=== PATIENT | male | born 1945 | race Caucasian/White ===

== ENCOUNTER 2020-09-21 12:01 | Outpatient (CLI) | payer OTHER, SELFPAY ==
--- NOTE | ~2020-09-21 | PE_ITS ---
EXAMINATION: PET skull to mid thigh DATE: 09/21/2020 14:37 INDICATION: Lung mass. TECHNIQUE: Blood glucose level was 166 mg/dL. 10.111 mCi of 18-fluorodeoxyglucose (18-FDG) was admini stered i.v. Low dose computed tomography (CT) images were acquired from the base of the brain to the proximal thighs for attenuation correction and anatomic localization. Automated exposure control was employed. Dose-length product (DLP) was 1070 mGy-cm. Positron emission tomography (PET) images were a cquired in the same distribution. COMPARISON: CT chest, abdomen, and pelvis 06/23/2015 FINDINGS: Head/neck: There is complete opacification of right maxillary sinus without increased activity. There are no pathologically enlarged lymph nodes. Chest: There is pleural thickening in right hemithorax without increased activity. There are airspace opacities in right lower lobe with swirling of the lung parenchyma without increased activity, consi stent with rounded atelectasis. There is mild atelectasis in the lungs bilaterally. There is a 5 mm n odule in right upper lobe without increased activity, likely benign. A calcified left lung nodule and calcified left hilar and mediastinal lymph nodes are consistent with old granulomatous disease. No p leural effusion. The heart size is normal. There are coronary artery calcifications. No pericardial e ffusion. Abdomen/pelvis/proximal thighs: Calcifications in the liver are consistent and spleen are consistent with old granulomatous disease. There are peripheral calcifications in the spleen, likely old infarct or old hemorrhage. There is mild splenomegaly measuring 13.5 cm, decreased from 14.8 cm on 06/23/15. T here is no increased activity in the spleen. There are gallstones in the gallbladder, which is normal in size. There is a small sliding hiatal hernia. The pancreas, adrenal glands, and kidneys are abundio l. There are no dilated loops of bowel. The prostate is mildly enlarged. There are no pathologically enlarged lymph nodes. There is no free intraperitoneal fluid. There is no osseous malignancy. IMPRESSION: 1. Rounded atelectasis in right lung lower lobe. No evidence of malignancy. Reviewed, dictated and finalized at location A.
[2020-09-21 12:30] LABS: Glucose Point of Care 166 mg/dl (65-105)
== END 2020-09-21 12:02 | disposition home or self-care (01) ==
LOC: ANHIMG 12:04
PROVIDERS: PCP Internal Medicine Infectious Disease; Visit Provider Nurse Practitioner
DX: R91.8 Other nonspecific abnormal finding of lung field (principal)
CPT/HCPCS: 78815; 82948; A9552

== ENCOUNTER 2022-05-16 07:34 | Outpatient (CLI) | payer OTHER, SELFPAY ==
--- NOTE | ~2022-05-16 | CT_ITS ---
EXAMINATION: CT soft tissue neck chest wo DATE: 05/16/2022 08:22 INDICATION: Chronic lymphoid leukemia. TECHNIQUE: Computed tomography (CT) of the neck and chest was performed without intravenous contrast. Automated exposure control and iterative reconstruction technique were employed. The dose-length pro duct was 1204.92 mGy-cm. COMPARISON: Neck CT 11/27/2015, chest CT 06/23/2015, PET/CT 09/21/2020 FINDINGS: CT NECK: There are likely changes of ocular lens replacement surgeries. There are no pathologically e nlarged lymph nodes. There is mucosal thickening in the paranasal sinuses. There is a small right mas toid effusion. There is severe cervical spondylosis. CT CHEST: There is right posterior pleural thickening. There is adjacent rounded atelectasis in right lower lobe. A calcified left lung nodule and calcified left hilar lymph nodes are consistent with ol d granulomatous disease. There is mild emphysema. There are reticular opacities in the right upper lo be, right middle lobe, and left lower lobe associated with architectural distortion. No pleural effus ion. The heart size is normal. No pericardial effusion. There are coronary artery calcifications. The re is a small sliding hiatal hernia. There are gallstones in the gallbladder, which is normal in size . There are peripheral calcifications in the spleen, likely from old injury. There is mild thoracic s pondylosis. IMPRESSION: 1. No lymphadenopathy. 2. Mild emphysema and mild chronic lung disease. Reviewed, dictated and finalized at location A. 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
== END 2022-05-16 07:35 | disposition home or self-care (01) ==
PROVIDERS: PCP Internal Medicine Infectious Disease; Visit Provider Internal Medicine Medical Oncology
DX: C91.10 Chronic lymphocytic leukemia of B-cell type not having achieved remission (principal); J43.9 Emphysema, unspecified; J98.4 Other disorders of lung
CPT/HCPCS: 70490; 71250

== ENCOUNTER 2025-02-09 14:35 | Outpatient (CLI) | payer OTHER, SELFPAY ==
--- OUTSIDE RECORDS SUMMARY | 2009-11-25 03:30 | XMS_ITS | Continuity of Care Document ---
Author Organization [facility] Address [address] [facility] [address] [place] [address] Phone Care Team Providers Care Loan Underwriter Name Role Phone Lexi Willson Unavailable Unavailable Procedures Procedure Date Eye Exam & Treatment Refraction Eye Exam & Treatment Office/outpatient Visit, Est Advance Directives Directive Yes / No Effective Date File Name No Information Encounters Encounter Description Practice Location Reason(s) For Visit Diagnoses Date Provider Providers Copied on Encounter [facility], [address] [place] [address] [address], [place], [place], [id number], [place] tel:[phone] [facility] [place] No Information 0 Anamika Fermin [address] , [address], [place], [address], [place]. tel:[phone] [facility], [address] [place] [address] [address], [place], [place], [id number], [place] tel:[phone] [facility] [place] No Information 200 9 Anamika Fermin [address] , [address], [place], [address], [place]. tel:[phone] Office/outpat ient Visit, Est [facility], [address] [place] [address] [address], [place], [place], [id number], [place] tel:[phone] [facility] [place] No Information 2200 7 Anamika Elliott. [address] , [address], [place], [address], [place]. tel:[phone] Family History Family Member Type Diagnosis Age At Onset No Information Payers Payer name Insurance type Covered libertarian ID Authorkaushal raymond(s) Medicaid [facility] [id number] Social History Type Description Quantity Date Captured Comments Sex Male Smoking Status No Information Chief Complaint And Reason For Visit No Information Reason For Referral Reason For Referral No Information History Of Present Illness Encounter Date Complaint History Of Prese nt Illness No Information Functional Status Date Functional Assessmen t No Information Instructions Date Instruction Additional Infor mation No Information Assessments Type Assessment Date No Information Patient Care Teams Name Effective Dates (start - stop) Status Members No Information
--- OUTSIDE RECORDS SUMMARY | 2023-11-09 08:30 | XMS_ITS ---
Author Organization [facility] Address [address] [place] [address] Care Team Providers Care High School Teacher Name Role Phone Jacobson Kamran Unavailable [phone] Medications Medication SIG (Take, Route, Frequency, Duration) Notes Start Date End Date Status Ciprofloxacin HCl 500 MG TAKE 1 TABLET B Y MOUTH EVERY 12 HOURS; Duration: 10 Active Calcitriol 0.25 MCG TAKE 1 CAPSULE BY MO UT EVERY DAY; Duration: 90 Active Social History Sex Assigned At : Social History Observation Description Sex Assigned At Male Encounters Encounter Location Date Provider Diagnosis [place] [facility] [address] [facility] [address] [place] [address] 11/09/2023 Kamran Jacobson Chronic kidney disease, stage 3a N18.31 ; Essential (primary) hypertension I10 ; Type 2 diabetes mellitus with hyperglycemia E11.65 ; Chronic obstructive pulmonary disease with (acute) exacerbation J44.1 and Cyst of kidney, acquired N28.1 Assessments Encounter Date Diagnosis (ICD Code) Assessment Notes Treatment Notes Treatment Clinical Notes Section Notes 11/09/2023 Chronic kidney disease, stage 3a (ICD-10 - N18.31) 11/09/2023 Essential (primary) hypertension (ICD-10 - I10) 11/09/2023 Type 2 diabetes mellitus with hyperglycemia (ICD-10 - E11.65) 11/09/2023 Chronic obstructive pulmonary disease with (acute) exacerbation (ICD-10 - J44.1) 11/09/2023 Cyst of kidney, acquired (ICD-10 - N28.1) Plan Of Treatment Next Appt Details Provider Name:Kamran Jacobson , 02/18/2025 02:00:00 PM, [address]43 [facility], [facility], [place], [address], Progress Notes * FADI DUNCANB: 6 (79 yo M)Acc No.[id number]:11/09/2023 Progress Notes Patient: CAROL MIRANDA Provider: Malini VELÁSQUEZ MD, Esther.Luma.P, F.A.S.N. :1945 A ge:78 Y S ex:Male Date:11/09/2023 Address:[address] [place] [address] Subjective: * Chief Complaints: * * Medical History: * Medications: T aking Ciprofloxacin HCl 500 MG Tablet TAKE 1 TABLET BY MOUTH EVERY 12 HOURS , Taking Calcitriol 0.25 MCG Capsule TAKE 1 CAPSULE BY MOUTH EVERY DAY Objective: * Vitals: Assessment: * Assessment: 1. C hronic kidney disease, stage 3a - N18.31 (Primary) 2 . E ssential (primary) hypertension - I10 3 . T ype 2 diabetes mellitus with hyperglycemia - E11.65 4 . C hronic obstructive pulmonary disease with (acute) exacerbation - J44.1 5. C yst of kidney, acquired - N28.1 Plan: * Treatment: * Billing Information: * Visit Code: 41954 Office Visit, Est Pt., Level 4. * Procedure Codes: * Electronic signature of Brian Jacobson MD on 02/09/2025 at 04:19 PM CDT Sign off status: Pending * Provider: Malini VELÁSQUEZ MD, Esther.Luma.P, F.A.S.N. Date: 0 11/09/2023 Generated for Printing/Faxing/eTransmitting on: 1 04:19 PM CDT
--- OUTSIDE RECORDS SUMMARY | 2024-01-25 08:45 | XMS_ITS ---
Author Organization [facility] Address [address] [place] [address] Care Team Providers Care Hazardous Substances Engineer Name Role Phone Kavon Kamran Unavailable [phone] Social History Sex Assigned At : Social History Observation Description Sex Assigned At Male Encounters Encounter Location Date Provider Diagnosis [place] [facility] 2043 [facility] 15 [place] [address] 01/25/2024 Kamran Jacobson Chronic kidney disease, stage [...] Next Appt Details Provider Name:Kamran Kavon , 02/18/2025 02:00:00 PM, 2043 [facility], [facility] [address], [place], [address], Progress Notes * CAROL DUNCANDOB: 6 (79 yo M)Acc No.[id number]:01/25/2024 Progress Notes Patient: CAROL MIRANDA Provider: Malini VELÁSQUEZ MD, F.A.C.P, F.A.S.N. :1945 A ge:78 Y S ex:Male Date:01/25/2024 Address:[place] [address] Subjective: * Chief Complaints: * * Medical [...] Treatment: * Billing Information: * Visit Code: 76494 Office Visit, Est Pt., Level 5. * Procedure Codes: * Electronic signature of Brian Jacobson MD on 02/09/2025 at 04:18 PM CDT Sign off status: Pending * Provider: Malini VELÁSQUEZ MD, F.A.C.P, F.A.S.N. Date: Generated for Printing/Faxing/eTransmitting on: 04:18 PM CDT
--- OUTSIDE RECORDS SUMMARY | 2024-03-26 10:15 | XMS_ITS ---
Author Organization [facility] Address [address] [place] [address] Care Team Providers Care Dental Service Chief Name Role Phone Jacobson Kamran Unavailable [phone] Social History Sex Assigned At : Social History Observation Description Sex Assigned At Male Encounters Encounter Location Date Provider Diagnosis [place] [facility] 2043 [place] [address] 03/26/2024 Kamran Jacobson Plan Of Treatment Next Appt Details Provider Name:Kamran Jacobson , 02/18/2025 02:00:00 PM, [address], [facility], Progress Notes * CAROL DUNCANDOB: 6 (79 yo M)Acc No.[id number]:03/26/2024 Progress Notes Patient: CAROL MIRANDA Provider: Malini VELÁSQUEZ MD, Esther.Jostin.C.P, F.A.S.N. :1945 A ge:78 Y S ex:Male Date:03/26/2024 Address:[address] [place] [address] Subjective: * Chief Complaints: * * Medical History: Objective: * Vitals: Assessment: Plan: * Treatment: * Billing Information: * Visit Code: * Procedure Codes: * Electronic signature of Brian Jacobson MD on 02/09/2025 at 04:18 PM CDT Sign off status: Pending * Provider: Malini VELÁSQUEZ MD, F.Jostin.C.P, F.A.S.N. Date: 05/27/2023 Generated for Printing/Faxing/eTransmitting on: 04:18 PM CDT
--- OUTSIDE RECORDS SUMMARY | 2024-04-25 07:45 | XMS_ITS ---
Author Organization [facility] Address [address] [place] [address] Care Team Providers Care Subway Conductor Name Role Phone Jacobson Kamran Unavailable [phone] Social History Sex Assigned At : Social History Observation Description Sex Assigned At Male Encounters Encounter Location Date Provider Diagnosis [facility] [place] [facility] [address] [place] [address] 04/25/2024 Kamran Jacobson Plan Of Treatment Next Appt Details Provider Name:Kamran Jacobson , 02/18/2025 02:00:00 PM, [address], [facility], Progress Notes * CAROL DUNCANDOB: 6 (79 yo M)Acc No.[id number]:04/25/2024 Patient: CAROL MIRANDA Provider: Malini VELÁSQUEZ MD, F.A.C.P, F.A.S.N. :1945 A ge:78 Y S ex:Male Date:04/25/2024 Address:[address] [place] [address] Subjective: * Chief Complaints: Objective: Assessment: Plan: * Billing Information: * Visit Code: * Procedure Codes: * Electronic signature of Brian Jacobson MD on 02/09/2025 at 04:18 PM CDT Sign off status: Pending * Provider: Malini VELÁSQUEZ MD, F.A.C.P, F.A.S.N. Date: 0 04/25/2024 Generated for Printing/Faxing/eTransmitting on: 04:18 PM CDT
--- OUTSIDE RECORDS SUMMARY | 2024-05-14 10:30 | XMS_ITS ---
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 15 [place] [address] 05/14/2024 Kamran Jacobson Chronic kidney disease, stage [...] Name:Kamran Jacobson , 02/18/2025 02:00:00 PM, [address] [place] [address], [facility] 15, [place], [address], Progress Notes * CAROL DUNCANDOB: 6 (79 yo M)Acc No.[id number]:05/14/2024 Progress Notes Patient: CAROL MIRANDA Provider: Malini VELÁSQUEZ MD, F.Jostin.C.P, F.A.S.N. :1945 A ge:78 Y S ex:Male Date:05/14/2024 Address:[address] [place] [address] Subjective: * Chief Complaints: * * Medical History: * Medications: T aking Ciprofloxacin HCl 500 MG Tablet TAKE 1 TABLET BY MOUTH EVERY 12 HOURS , Taking Vitamin D (Ergocalciferol) 1.25 MG (71645 UT) Capsule TAKE 1 CAPSULE BY MOUTH [...] Treatment: * Billing Information: * Visit Code: 63297 Office Visit, Est Pt., Level 4. * Procedure Codes: * Electronic signature of Brian Jacobson MD on 02/09/2025 at 04:18 PM CDT Sign off status: Pending * Provider: Malini VELÁSQUEZ MD, Esther.Jostin.C.P, F.A.S.N. Date: 05/14/2024 Generated for Printing/Faxing/eTransmitting on: 1 04:18 PM CDT
--- OUTSIDE RECORDS SUMMARY | 2024-07-09 09:30 | XMS_ITS ---
Author Organization [facility] Office Address [address] [place] [address] Care Team Providers Care Adjunct Faculty For Medical Terminology Name Role Phone Kavon Kamran Unavailable [phone] Social History Sex Assigned At : Social History Observation Description Sex Assigned At Male Problems Problem Type SNOMED Code ICD Code Onset Dates Problem Status W/U Status Risk Notes Problem Hypo-osmolality and or hyponatremia (863022412) Hypo-osmolality and hyponatremia (E87.1) Active confirmed Problem Acute bronchitis (51166750) Acute bronchitis, unspecified (J20.9) Active confirmed Encounters Encounter Location Date Provider Diagnosis [place] [facility] 2043 [facility] 15 [place] [address] 07/09/2024 Kamran Jacobson Chronic kidney disease, stage [...] Provider Name:Kamran Jacobson , 02/18/2025 02:00:00 PM, [address], [address], [place], [address], Progress Notes * CAROL DUNCANDOB: 6 (79 yo M)Acc No.[id number]:07/09/2024 Progress Notes Patient: CAROL MIRANDA Provider: Malini VELÁSQUEZ MD, F.A.C.P, F.A.S.N. :1945 A ge:78 Y S ex:Male Date:07/09/2024 Address:[address] [place] [address] Subjective: * Chief Complaints: * * Medical [...] Treatment: * Billing Information: * Visit Code: 23752 Office Visit, Est Pt., Level 4. * Procedure Codes: * Electronic signature of Brian Jacobson MD on 02/09/2025 at 04:19 PM CDT Sign off status: Pending * Provider: Malini VELÁSQUEZ MD, F.A.C.P, F.A.S.N. Date: 0 07/09/2024 Generated for Printing/Faxing/eTransmitting on: 1 04:19 PM CDT
--- OUTSIDE RECORDS SUMMARY | 2024-10-08 09:30 | XMS_ITS ---
Author Organization [facility] Office Address [address] [place] [address] Care Team Providers Care Erp Specialist Name Role Phone Kavon Kamran Unavailable [phone] Social History Sex Assigned At : Social History Observation Description Sex Assigned At Male Problems Problem Type SNOMED Code ICD Code Onset Dates Problem Status W/U Status Risk Notes Problem Chronic kidney disease stage 3B (disorder) (593493606) Chronic kidney disease, stage 3b (N18.32) Active confirmed Encounters Encounter Location Date Provider Diagnosis [place] [facility] 2043 [facility] 15 [place] [address] 10/08/2024 Kamran Jacobson Chronic kidney disease, stage [...] Name:Kamran Jacobson , 02/18/2025 02:00:00 PM, [address], [facility] 15, [place], [address], Progress Notes * CAROL DUNCANDOB: 6 (79 yo M)Acc No.[id number]:10/08/2024 Progress Notes Patient: CAROL MIRANDA Provider: Malini VELÁSQUEZ MD, F.A.C.P, F.A.S.N. :1945 A ge:78 Y S ex:Male Date:10/08/2024 Address:[facility] [place] Subjective: * Chief Complaints: * * Medical [...] Treatment: * Billing Information: * Visit Code: 58317 Office Visit, Est Pt., Level 4. * Procedure Codes: * Electronic signature of Brian Jacobson MD on 02/09/2025 at 04:19 PM CDT Sign off status: Pending * Provider: Malini VELÁSQUEZ MD, F.A.C.P, F.A.S.N. Date: 0 10/08/2024 Generated for Printing/Faxing/eTransmitting on: 1 04:19 PM CDT
--- OUTSIDE RECORDS SUMMARY | 2024-12-03 10:00 | XMS_ITS ---
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 :1945 A ge:79 Y S ex:Male Date:12/03/2024 Address:[address] [place] [address] Subjective: * Chief Complaints: Objective: Assessment: * [...] Plan: * Billing Information: * Visit Code: 49051 Office Visit, Est Pt., Level 4. * Procedure Codes: * Electronic signature of Brian Jacobson MD on 02/09/2025 at 04:19 PM CDT Sign off status: Pending * Provider: Malini VELÁSQUEZ MD, F.A.C.P, F.A.S.N. Date: 0 12/03/2024 Generated for Printing/Faxing/eTransmitting on: 1 04:19 PM CDT
--- OUTSIDE RECORDS SUMMARY | 2025-01-21 14:15 | XMS_ITS ---
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 Truck Driver Name Role Phone Kamran Jacobson Unavailable [phone] Social History Sex Assigned At : Social History Observation Description Sex Assigned At Male Encounters Encounter Location Date Provider Diagnosis [facility] [address] [place] [address] 01/21/2025 Malini Jacobson Plan Of Treatment Next Appt Details Provider Name:Kamran Jacobson , 02/18/2025 02:00:00 PM, [address]43 [facility] [address], [address], Progress Notes * CAROL DUNCANDOB: 6 (79 yo M)Acc No.[id number]:01/21/2025 Progress Notes Patient: CAROL IMRANDA Provider: Malini VELÁSQUEZ MD, F.A.C.P, F.A.S.N. :1945 A ge:79 Y S ex:Male Date:01/21/2025 Address:[address] [place] [address] Subjective: * Chief Complaints: Objective: Assessment: Plan: * Billing Information: * Visit Code: * Procedure Codes: * Electronic signature of Brian Jacobson MD on 02/09/2025 at 04:19 PM CDT Sign off status: Pending * Provider: Malini VELÁSQUEZ MD, F.A.C.P, F.A.S.N. Date: Generated for Printing/Faxing/eTransmitting on: 04:19 PM CDT
--- OUTSIDE RECORDS SUMMARY | 2025-01-28 13:45 | XMS_ITS ---
Author Organization [facility] Address [address] [place] [address] Care Team Providers Care Manometer Technician Name Role Phone Jacobson Kamran Unavailable [phone] Social History Sex Assigned At : Social History Observation Description Sex Assigned At Male Encounters Encounter Location Date Provider Diagnosis [facility] [place] [facility] [address] [place] [address] 01/28/2025 Kamran Jacobson Plan Of Treatment Next Appt Details Provider Name:Kamran Jacobson , 02/18/2025 02:00:00 PM, [address], [facility], Progress Notes * CAROL DUNCANDOB: 6 (79 yo M)Acc No.[id number]:01/28/2025 Progress Notes Patient: CAROL MIRANDA Provider: Malini VELÁSQUEZ MD, F.A.C.P, F.A.S.N. :1945 A ge:79 Y S ex:Male Date:01/28/2025 Address:[address] [place] [address] Subjective: * Chief Complaints: Objective: Assessment: Plan: * Billing Information: * Visit Code: * Procedure Codes: * Electronic signature of Brian Jacobson MD on 02/09/2025 at 04:18 PM CDT Sign off status: Pending * Provider: Malini VELÁSQUEZ MD, F.A.C.P, F.A.S.N. Date: Generated for Printing/Faxing/eTransmitting on: 04:18 PM CDT
--- NOTE | ~2025-02-09 | CT_ITS ---
EXAMINATION: CT soft tissue neck w con DATE: 02/09/2025 15:06 INDICATION: Other diseases of vocal cords. TECHNIQUE: Computed tomography (CT) of the neck was performed with 75 mL Omnipaque-350 intravenous contrast. Automated exposure control and iterative reconstruction technique were employed. The dose-length product was 649.40 mGy-cm. COMPARISON: Neck CT 05/16/2022 FINDINGS: There is mild chronic lung disease in right upper lobe. There are likely changes of ocular lens replacement surgeries. There are no pathologically enlarged lymph nodes. There is plaque in the proximal internal carotid arteries with less than 50% stenosis relative to normal distal artery lumen diameters. The pharynx and larynx are unremarkable. There is mucosal thickening in the paranasal sinuses. There is a right mastoid effusion. There is severe cervical spondylosis. IMPRESSION: 1. No evidence of malignancy. Reviewed, dictated and finalized at location E.
[2025-02-09 14:58] LABS: Estimated Glomerular Filt Rate 49
--- OUTSIDE RECORDS SUMMARY | 2025-02-09 16:18 | XMS_ITS | Patient Health Record ---
Author Organization [facility] Address [address] [place] [address] Care Team Providers Care Pastry Assistant Name Role Phone Kamran Jacobson Unavailable [phone] Reason For Referral No Information Medications Medication SIG (Take, Route, Frequency, Duration) Notes Start Date End Date Status Vitamin D (Ergocalciferol) 1.25 MG (34371 UT) TAKE 1 CAPSULE BY MOUTH 1 TIME A WEEK; Duration: 91 Active Calcitriol 0.25 MCG TAKE 1 CAPSULE BY MO UTH EVERY DAY; Duration: 90 Active Ciprofloxacin HCl 500 MG TAKE 1 TABLET B Y MOUTH EVERY 12 HOURS; Duration: 10 Active Proscar 5 MG 1 tablet Orally Once a day; Duration: 30 days 12/17/2024 04/15/2025 Active Losartan Potassium 100 MG 1 tablet Orall y Once a day; Duration: 90 days 11/14/2024 Active Social History Sex Assigned At : Social History Observation Description Sex Assigned At Male Problems Problem Type SNOMED Code ICD Code Onset Dates Problem Status W/U Status Risk Notes Problem Hyperglycemia due to type 2 diabetes mellitus (622117639971630) Type 2 diabetes mellitus with hyperglycemia (E11.65) Active confirmed Problem Syndrome of inappropriate secretion of antidiuretic hormone (21855838) 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 confirmed Problem Hypervitaminosis D (30196626) 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) Active confirmed Problem Hypo-osmolality and or hyponatremia (419110019) Hypo-osmolality and hyponatremia (E87.1) Active confirmed Problem Essential hypertension (60324873) Essential (primary) hypertension (I10) Active confirmed Problem Acute bronchitis (92154889) Acute bronchitis, unspecified (J20.9) Active confirmed Problem Acute exacerbation of chronic obstructive airways disease (265815302) Chronic obstructive pulmonary disease with (acute) exacerbation (J44.1) Active confirmed Problem 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, 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) Active confirmed Problem Chronic kidney disease stage 3B (disorder) (302281452) Chronic kidney disease, stage 3b (N18.32) Active confirmed Encounters Encounter Location Date Provider Diagnosis [facility] [address] [address] 05/14/2024 Kamran Jacobson Chronic kidney disea se, stage 3a N18.31 ; Type 2 diabetes mellitus with hyperglycemia E11.65 ; Essential (primary) hypertension I10 ; Chronic obstructive pulmonary disease with (acute) exacerbation J44.1 ; Cyst of kidney, acquired N28.1 and 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 [facility] [address] [address] 07/09/2024 Kamran Jacobson Chronic kidney disea se, stage 3a N18.31 ; Type 2 diabetes mellitus with hyperglycemia E11.65 ; Essential (primary) hypertension I10 ; Chronic obstructive pulmonary disease with (acute) exacerbation J44.1 ; Cyst of kidney, acquired N28.1 ; 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 ; Hypo-osmolality and hyponatremia E87.1 and Acute bronchitis, unspecified J20.9 [facility] [address] [address] 10/08/2024 Kamran Jacobson Chronic kidney disea se, stage 3b N18.32 ; Type 2 diabetes mellitus with hyperglycemia E11.65 ; Essential (primary) hypertension I10 ; Chronic obstructive pulmonary disease with (acute) exacerbation J44.1 ; Cyst of kidney, acquired N28.1 ; 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 ; Hypo-osmolality and hyponatremia E87.1 and Acute bronchitis, unspecified J20.9 [facility] [address] [address] 12/03/2024 Kamran Jacobson Chronic kidney disea se, stage 3b N18.32 ; Type 2 diabetes mellitus with hyperglycemia E11.65 ; Essential (primary) hypertension I10 ; Chronic obstructive pulmonary disease with (acute) exacerbation J44.1 ; Cyst of kidney, acquired N28.1 ; 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 ; Hypo-osmolality and hyponatremia E87.1 ; Acute bronchitis, unspecified J20.9 and 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 [facility] 2043 [facility] 15 [place] [address] 11/14/2024 Kamran Jacobson Call Office [address] [address] 12/17/2024 Kamran Jacobson Assessments Encounter Date Diagnosis (ICD Code) Assessment Notes Treatment Notes Treatment Clinical Notes Section Notes 05/14/2024 Chronic kidney disease, stage 3a (ICD-10 - N18.31) 07/09/2024 Chronic kidney disease, stage 3a (ICD-10 - N18.31) 10/08/2024 Chronic kidney disease, stage 3b (ICD-10 - N18.32) 12/03/2024 Type 2 diabetes mellitus with hyperglycemia (ICD-10 - E11.65) 12/03/2024 Chronic kidney disease, stage 3b (ICD-10 - N18.32) 12/03/2024 Essential (primary) hypertension (ICD-10 - I10) 10/08/2024 Type 2 diabetes mellitus with hyperglycemia (ICD-10 - E11.65) 07/09/2024 Type 2 diabetes mellitus with hyperglycemia (ICD-10 - E11.65) 05/14/2024 Type 2 diabetes mellitus with hyperglycemia (ICD-10 - E11.65) 05/14/2024 Essential (primary) hypertension (ICD-10 - I10) 07/09/2024 Essential (primary) hypertension (ICD-10 - I10) 12/03/2024 Chronic obstructive pulmonary disease with (acute) exacerbation (ICD-10 - J44.1) 10/08/2024 Essential (primary) hypertension (ICD-10 - I10) 10/08/2024 Chronic obstructive pulmonary disease with (acute) exacerbation (ICD-10 - J44.1) 12/03/2024 Cyst of kidney, acquired (ICD-10 - N28.1) 07/09/2024 Chronic obstructive pulmonary disease with (acute) exacerbation (ICD-10 - J44.1) 05/14/2024 Chronic obstructive pulmonary disease with (acute) exacerbation (ICD-10 - J44.1) 05/14/2024 Cyst of kidney, acquired (ICD-10 - N28.1) 07/09/2024 Cyst of kidney, acquired (ICD-10 - N28.1) 10/08/2024 Cyst of kidney, acquired (ICD-10 - N28.1) 12/03/2024 Syndrome of inappropriate secretion of antidiuretic hormone (ICD-10 - E22.2) 12/03/2024 Hypo-osmolality and hyponatremia (ICD-10 - E87.1) 10/08/2024 Syndrome of inappropriate secretion of antidiuretic hormone (ICD-10 - E22.2) 05/14/2024 Syndrome of inappropriate secretion of antidiuretic hormone (ICD-10 - E22.2) 07/09/2024 Syndrome of inappropriate secretion of antidiuretic hormone (ICD-10 - E22.2) 07/09/2024 Hypo-osmolality and hyponatremia (ICD-10 - E87.1) 10/08/2024 Hypo-osmolality and hyponatremia (ICD-10 - E87.1) 12/03/2024 Acute bronchitis, unspecified (ICD-10 - J20.9) 12/03/2024 Hypervitaminosis D (ICD-10 - E67.3) 10/08/2024 Acute bronchitis, unspecified (ICD-10 - J20.9) 07/09/2024 Acute bronchitis, unspecified (ICD-10 - J20.9) Plan Of Treatment Next Appt Details Provider Name:Kamran Jacobson , 02/18/2025 02:00:00 PM, [address] Kait[address] Sorenson, [facility], [place], [address],
--- OUTSIDE RECORDS SUMMARY | 2025-02-09 16:18 | XMS_ITS | Clinical Summary ---
Author Organization [facility] Address [address] [place] [address] Care Team Providers Care Cvor Nurse Name Role Phone Unavailable Primary Care Provider Unavailabl e Social History Tobacco Use Types Packs/Day Years Used Date Smoking Tobacco: Never Assessed Sex and Gender Information Value Date Recorded Sex Assigned at Not on file Legal Sex Male 5:01 PM CDT Gender Identity Not on file Sexual Orientation Not on file Last Filed Vital Signs Vital Sign Reading Time Taken Comments Blood Pressure 136/74 03/01/2017 1:43 PM FREIGHT BROKER AGENT Pulse 74 03/01/2017 1:43 PM FREIGHT BROKER AGENT Temperature - - Respiratory Rate - - Oxygen Saturation - - Inhaled Oxygen Concentration - - Weight 111.6 kg (246 lb 1 oz) 03/01/2017 1:43 PM FREIGHT BROKER AGENT Height 181 cm (5' 11.25) 03/01/2017 1:43 PM FREIGHT BROKER AGENT Body Mass Index 34.08 03/01/2017 1:43 PM FREIGHT BROKER AGENT Plan of Treatment Health Maintenance Due Date Last Done Comments Hepatitis C 10[birth year]26/1963 DTaP, Tdap and Td Vaccines ( 1 - Tdap) 1964 Pneumococcal Vaccine: 50+ Ye ars (1 of 1 - PCV) 10/26/1995 Zoster Vaccines (1 of 2) 10/26/1995 RSV Immunization or 60+ Years (1 - 1-dose 75+ series) 2020 COVID-19 Vaccine ( - 2024-2 6 season) 2024 Influenza Adult (#1) 2025 Hepatitis A Vaccines Aged Out No long er eligible based on patient's age to complete this topic Meningococcal B Vaccine Aged Out No l onger eligible based on patient's age to complete this topic Meningococcal Vaccine Aged Out No slim garett eligible based on patient's age to complete this topic RSV Immunizations Under 20 Months Aged Out No longer eligible based on patient's age to complete this topic
--- OUTSIDE RECORDS SUMMARY | 2025-02-09 16:19 | XMS_ITS | Data Portability ---
Author Organization [facility] Linksify [facility], Main Office Address [address] [place] [address] Care Team Providers Care Wagon Person Name Role Phone YASMANI BRANCH Primary Care Provider [phone] YASMANI BRANCH Referring Provider Assessment Encounter Date Assessment Date Assessment LastModified by Organization Details LastModified Time 07/16/2024 07/16/2024 This note is dictated and transcribed by [employer]. Shank [employer] variances may occur. Despite proofreading, typographical errors may occur. Occasional wrong-word or 'augcc-v-wijy' substitutions may have occurred due to the inherent limitations of voice recording. Read the chart carefully and recognize, using context, where substitutions have occurred. Not available 07/16/2024 12:26:50 07/23/2024 07/23/2024 This note is dictated and transcribed by [employer]. [employer] variances may occur. Despite proofreading, typographical errors may occur. Occasional wrong-word or 'uikns-d-whkz' substitutions may have occurred due to the inherent limitations of voice recording. Read the chart carefully and recognize, using context, where substitutions have occurred. Not available 08/04/2024 09:19:56 07/28/2024 07/28/2024 This note is dictated and transcribed by [employer]. [employer] variances may occur. Despite proofreading, typographical errors may occur. Occasional wrong-word or 'pswxt-r-ainp' substitutions may have occurred due to the inherent limitations of voice recording. Read the chart carefully and recognize, using context, where substitutions have occurred. Not available 07/28/2024 11:17:32 08/20/2024 08/20/2024 This note is dictated and transcribed by [employer]. Shank [employer] variances may occur. Despite proofreading, typographical errors may occur. Occasional wrong-word or 'krfbm-m-svuw' substitutions may have occurred due to the inherent limitations of voice recording. Read the chart carefully and recognize, using context, where substitutions have occurred. Not available 08/20/2024 12:06:35 12/18/2024 12/18/2024 This note is dictated and transcribed by [employer]. Shank [employer] variances may occur. Despite proofreading, typographical errors may occur. Occasional wrong-word or 'izlao-b-ckee' substitutions may have occurred due to the inherent limitations of voice recording. Read the chart carefully and recognize, using context, where substitutions have occurred. Not available 12/18/2024 17:23:36 Plan of Treatment Reminders Order Date Submit Date Provider Last Modified By Organization Details Last Modified Time Details Appointments Establish ed Patient 15 2024 04:00P M Jose Andrews DPM Not available Not available Not available Lab None recorded. Referral None recorded. Procedures None recorded. Surgeries None recorded. Imaging XR, foot, 3 or more view - podiatry read- bunion [address] (Radiology), [address] [place], [address], 08/05/2024 19:06:23 US, duplex, arterial, lower extremity , complete 2024 025 [facility] (Radiology), [address] [place], [address], 08/05/2024 12:11:53 Medication Orders Silvadene 1 % topical cream 2024 025 [id number], [address], [place], [place], [id number], 07/16/2024 12:29:42 Patient TargetsNo targets recorded. Patient Instructions Encounter Date Encounter Id Patient Instructions Last Modified By Organization Details Last Modified Time 07/16/2024 [id number] ([place]) ankle brachial index* - left lower leg [email or web address] Not available 08/04/2024 17:00:58 Reason for Referral None Reported. Results Created Date Observation Date Name Description Value Unit Range Abnormal Flag Note LastModifiedBy Organization Detail LastModifiedTime 08/06/19 25 07/29/2024 US, duple x, arter ial, lower extre mity, compl ete No observ ation record ed. [email or web address] [facility] (Radiology) [address] [place], [address], 08/05/2024 12:12:00 Result Notes None recorded. Problems Name Problem SNOMED Code Status Onset Date Resolution Date Notes Provider Name and Address Organization Details Recorded Time Obstructiv e sleep apnea syndrome 48849421 Active 2016 Not Available [facility] 3 04:51:34 Moderate chronic obstructiv e pulmonary disease 759625735 Active 2016 Not Available [facility] 3 04:51:33 Body mass index 30+ - obesity 085477684 Active 2016 Not Available [facility] 3 04:51:32 Hypertensi ve disorder 41432954 Active 2016 Not Available [facility] 3 04:51:33 Pleural effusion 50310372 Active 2016 Not Available [facility] 3 04:51:33 Diabetes mellitus 83868590 Active 2018 Not Available [facility] 3 04:51:34 Chronic hoarseness 0638967190443 Active 2020 Not Available [facility] 3 04:51:32 Dry skin 24579391 Active 2020 Not Available [facility] 3 04:51:32 Multiple nodules of lung 163595441 Active 2020 Not Available [facility] 3 04:51:33 Abdominal pain 73065195 Active 2021 Not Available [facility] 3 04:51:32 Gastroesop hageal reflux disease without esophagiti s 061188169 Active 2021 Not Available [facility] 3 04:51:32 Round atelectasi s 644472390 Active 2021 Not Available [facility] 3 04:51:33 Dyspnea on exertion 66224561 Active 2021 Not Available [facility] 3 04:51:33 Candidiasi s of mouth 44167616 Active 2021 Not Available [facility] 3 04:51:34 Acute exacerbati on of chronic obstructiv e pulmonary disease 620536958 Active 2021 Not Available [facility] 3 04:51:32 Immunoglob ulins outside reference range 430723467 Active 2021 Not Available [facility] 3 04:51:32 Hammer toe 091927401 Active 2022 Not Available [facility] 3 04:51:32 Unable to cut own toenails 121668183 Active 2022 Not Available [facility] 3 04:51:33 Onychomyco sis of toenails 586302106 Active 2022 Not Available [facility] 3 04:51:33 Callosity on toe 447913828 Active 2022 Jose Andrews DPM [address], [place], [address] , [facility] 3 18:51:07 Lung mass 057491561 Active 2022 Melody Gee, [facility]- [address], [place], [address] , [employer] [facility] 3 10:09:04 Linden of toe 42886537 Active 2022 Jose Andrews DPM [address], [place], [address] , [facility] 3 18:14:03 Acquired right mallet toe 1936329763862 9109 Active 2022 Jose Andrews DPM [address], [place], [address] , [facility] 3 18:14:17 Hammer toe 412066641 Active 2022 Jose Andrews DPM [address], [place], [address] , [facility] 3 15:39:23 Foot callus 816509595 Active 2023 Jose Andrews DPM [address], [place], [address] , [facility] 4 16:44:07 Pain in right foot 0574837598784 07 Active 2023 Jose Andrews DPM [address], [place], [address] , [facility] 4 13:42:07 Diabetic peripheral neuropathy 163309923 Active 2023 Jose Andrews DPM [address], [place], [address] , [facility] 4 15:16:08 Dystrophia unguium 79010271 Active 2023 Jose Andrews DPM [address], [place], [address] , [facility] 4 14:23:57 Peripheral arterial occlusive disease 383297487 Active 2024 Jose Andrews DPM [address], [place], [address] , [facility] 5 12:52:13 Bunion 013084112 Active 2024 Jose Andrews DPM [address], [place], [address] , [facility] 5 12:52:53 Fissure in skin 73703897 Active 2024 Jose Andrews DPM [address], [place], [address] , [employer] 5 12:52:57 Callus of heel 070917296 Active 2024 Jose Andrews DPM [address], [place], [address] , [facility] 5 12:53:01 Diabetic on insulin 007354739 Active 2024 Jose Andrews DPM [address], [place], [address] , [facility] 5 12:56:45 Skin eschar 352538801 Active 2024 Jose Andrews DPM [address], [place], [address] , [facility] 5 12:27:12 Tear of skin 664792663 Active 2024 Jose Andrews DPM [address], [place], [address] , [facility] 5 11:18:10 Notes:Medical History: Anxie ty Mild COPD Obesity Hypertension Hyperlipidemia T2DM HELIO Onychomycosis Problem Notes None recorded. Procedures Surgical History Date Name Laterality Status Provider Name and Address Organization Details Recorded Time 5 Nail Debridement completed Jose Andrews DPM [address], [place], [address], [employer] [facility] [employer] 12/18/2024 17:20:27 5 Wound Care-Podiatry completed Mio Good RN [place] [facility] [employer] 08/20/2024 10:48:48 5 Wound Care-Podiatry completed Jose Andrews DPM [address], [place], [address], [employer] [facility] [employer] 08/04/2024 09:19:44 5 Wound Care-Podiatry completed Marylou Valentin [employer] [facility] [employer] 07/16/2024 12:29:45 5 Nail Debridement completed Jose Andrews DPM [address], [place], [address], [facility] 07/01/2024 13:08:57 4 Nail Debridement completed Jose Andrews DPM [address], [place], [address], [facility] 04/01/2024 14:22:57 4 Nail Debridement completed Jose Andrews DPM [address], [place], [address], [facility] 01/01/2024 15:13:19 4 Callus Debridement, One completed Jose Andrews DPM [address], [place], [address], [facility] 10/04/2023 13:42:31 4 Nail Debridement completed Jose Andrews DPM [address], [place], [address], [facility] 07/11/2023 14:16:03 3 Nail Debridement completed Jose Andrews DPM [address], [place], [address], [facility] 04/03/2023 15:38:33 3 Callus Debridement, One completed Jose Andrews DPM [address], [place], [address], [facility] 04/03/2023 15:38:16 3 Callus Debridement, One completed Jose Andrews DPM [address], [place], [address], [facility] 01/30/2023 16:19:42 3 Callus Debridement, One completed Jose Andrews DPM [address], [place], [address], [facility] 01/02/2023 16:37:08 3 Nail Debridement completed Jose Andrews DPM [address], [place], [address], [employer] 12/12/2022 18:13:54 3 Blank Procedure Note completed Jose Andrews DPM [address], [place], [address], [employer] 12/12/2022 18:12:45 3 Callus Debridement 2-4 completed Jose Andrews DPM [address], [place], [address], [employer] 12/12/2022 18:13:43 3 Nail Debridement completed Jose Andrews DPM [address], [address], [place], [address], [employer] 09/12/2022 18:50:26 3 Callus Debridement, One completed Jose Andrews DPM [address], [place], [address], [employer] 09/12/2022 18:50:19 Imaging Results None recorded. Procedure Notes None recorded. Medical Equipment None Reported. Allergies Allergen ID Allergen Name Allergen Category Reaction Reaction Severity Criticality Documentation Date Start Date Code Code System Note Provider Name and Address Organization Details Recorded Time 7834 codeine medicatio n Not available Not available Not available 06/14/2022 2670 RxNorm Not Available [facility] 3 05:03:07 Medications Name Sig Start Date Stop Date Status Note LastModified by Organization Details LastModified Time losartan 50 mg tablet TAKE 1 TABLET BY MOUTH DAILY active Not Available Not Available No t Available furosemid e 40 mg tablet 03/19 completed Not Available Not Available Not Available fluconazo le 100 mg tablet 02/26 completed Not Available Not Available Not Available atorvasta tin 40 mg tablet qd 07/02 completed Not Available Not Available Not Available clotrimaz ole 10 mg rosemarie LET 1 ROSEMARIE DISSOLVE IN THE MOUTH AND TRY TO GARGLE THEN SWALLOW FIVE TIMES DAILY active Not Available Not Available No t Available terbinafi ne HCl 1 % topical cream qd active Not Available Not Available Not Available metformin 500 mg tablet Take 4 tablets every day by oral route as directed . 12/17 completed Not Available Not Available Not Available nystatin 100,000 unit/mL oral suspensio n TAKE 4 ML BY MOUTH FOUR TIMES DAILY FOR 14 DAYS. GARGLE FOR SEVERAL MINUTES THEN SWALLOW active stopped Not Available Not Available No t Available prednison e 10 mg tablet 06/27 completed Not Available Not Available Not Available cefuroxim e axetil 250 mg tablet 06/27 completed Not Available Not Available Not Available carvedilo l 12.5 mg tablet TAKE 1 TABLET BY MOUTH TWICE DAILY DIRECTED active Not Available Not Available No t Available labetalol 200 mg tablet 11/09 completed Not Available Not Available Not Available ammonium lactate 12 % lotion APPLY 1 APPLICAT ION EVERYDAY TO SKINAS NEEDED FOR FOOT CALLUSES active Not Available Not Available No t Available citalopra m 40 mg tablet 02/26 completed Not Available Not Available Not Available trazodone 50 mg tablet qhs active Not Available Not Available Not Available cetirizin e 10 mg tablet TAKE 1 TABLET BY MOUTH DAILY active Not Available Not Available No t Available azithromy abelardo 250 mg tablet TAKE 2 TABLETS BY MOUTH FOR 1 DAY THEN TAKE 1 TABLET BY MOUTH DAILY FOR 4 DAYS 07/02 completed Not Available Not Available Not Available miconazol e nitrate 2 % topical cream APPLY TOPICALL Y TO THE AFFECTED AREA TWICE DAILY IN THE MORNING AND IN THE EVENING FOR 2 WEEKS active Not Available Not Available No t Available fluconazo le 150 mg tablet TAKE 1 TABLET BY MOUTH EVERY DAY FOR 1 DAY NEEDED FOR YEAST INFECTIO N active Not Available Not Available No t Available benzonata te 200 mg capsule TAKE 1 CAPSULE BY MOUTH THREE TIMES DAILY NEEDED FOR COUGH 07/02 completed Not Available Not Available Not Available hydrocodo ne 5 mg-acetam inophen 325 mg tablet TAKE 1 TABLET BY MOUTH TWICE DAILY NEEDED FOR SEVERE PAIN active Not Available Not Available No t Available enalapril maleate 20 mg tablet 06/27 completed Not Available Not Available Not Available fluconazo le 200 mg tablet TAKE 1 TABLET BY MOUTH DAILY FOR 2 WEEKS AND TAKE 2 WEEKS OFF FOR FUNGAL LARYNGIT IS active Not Available Not Available No t Available lisinopri l 20 mg tablet 11/09 completed Not Available Not Available Not Available famotidin e 40 mg tablet Take 1 tablet every day by oral route as directed for 30 days. 07/02 completed Not Available Not Available Not Available prednison e 20 mg tablet Take 1 tablet every day by oral route as directed for 5 days. 06/04 completed Not Available Not Available Not Available prednison e 5 mg tablet 02/26 completed Not Available Not Available Not Available glipizide ER 5 mg tablet, extended release 24 hr TAKE 1 TABLET BY MOUTH DAILY WITH BREAKFAS T active Not Available Not Available No t Available Lantus U-100 Insulin 100 unit/mL subcutane ous solution active Not Available Not Available Not Available acetamino phen 300 mg-codein e 30 mg tablet active Not Available Not Available Not Available amlodipin e 5 mg tablet TAKE 1 TABLET BY MOUTH EVERY DAY DIRECTED active Not Available Not Available No t Available ciproflox acin 500 mg tablet TAKE 1 TABLET BY MOUTH EVERY 12 HOURS 02/26 completed Not Available Not Available Not Available sulfameth oxazole 800 mg-trimet hoprim 160 mg tablet 06/27 completed Not Available Not Available Not Available hydrocodo ne 10 mg-acetam inophen 325 mg tablet 05/01 completed Not Available Not Available Not Available omeprazol e 40 mg capsule,d elayed release TAKE 1 CAPSULE BY MOUTH EVERY MORNING ON AN EMPTY STOMACH AND WAIT 20 MINUTES TO EAT OR DRINK AFTERWAR DS FOR LARYNGOP HARYNGEA L REFLUX active Not Available Not Available No t Available tramadol 50 mg tablet prn 07/02 completed Not Available Not Available Not Available potassium chloride ER 20 mEq tablet,ex tended release(p art/cryst ) TAKE 1 TABLET BY MOUTH EVERY DAY active Not Available Not Available No t Available prednisol one acetate 1 % eye drops,tali pension 06/27 completed Not Available Not Available Not Available gentamici n 0.3 % eye drops 03/19 completed Not Available Not Available Not Available OneTouch Ultra Test strips TEST THREE TIMES DAILY DIRECTED active Not Available Not Available No t Available doxycycli ne monohydra te 100 mg capsule TAKE 1 CAPSULE BY MOUTH TWICE DAILY 12/31 completed Not Available Not Available Not Available glipizide ER 2.5 mg tablet, extended release 24 hr 06/27 completed Not Available Not Available Not Available hydrocodo ne 7.5 mg-acetam inophen 325 mg tablet active Not Available Not Available Not Available cephalexi n 500 mg capsule TAKE 1 CAPSULE BY MOUTH EVERY 6 HOURS AROUND THE CLOCK FOR 7 DAYS 02/26 completed Not Available Not Available Not Available diclofena c 0.1 % eye drops 03/19 completed Not Available Not Available Not Available promethaz ine 25 mg tablet 06/27 completed Not Available Not Available Not Available Advair Diskus 250 mcg-50 mcg/dose powder for inhalatio n Inhale 1 puff twice a day by inhalati on route as directed for 30 days. 03/01 completed Not Available Not Available Not Available gabapenti n 300 mg capsule 06/27 completed Not Available Not Available Not Available ammonium lactate 12 % topical cream APPLY TOPICALL Y TO THE AFFECTED AREA EVERY DAY NEEDED active Not Available Not Available No t Available allopurin ol 300 mg tablet 06/27 completed Not Available Not Available Not Available lisinopri l 5 mg tablet 06/27 completed Not Available Not Available Not Available acyclovir 200 mg capsule 07/27 completed Not Available Not Available Not Available ergocalci ferol (vitamin D2) 1,250 mcg (50,000 unit) capsule TAKE 1 CAPSULE BY MOUTH ONCE A WEEK active Not Available Not Available No t Available lorazepam 1 mg tablet prn active Not Available Not Available Not Available ibuprofen 600 mg tablet TAKE 1 TABLET BY MOUTH EVERY 6 HOURS WITH FOOD NEEDED FOR PAIN OR INFLAMMA TION OR FEVER active Not Available Not Available No t Available levofloxa abelardo 500 mg tablet Take 1 tablet every day by oral route as directed for 7 days. active Not Available Not Available No t Available albuterol sulfate HFA 90 mcg/actua tion aerosol inhaler INHALE 2 PUFFS BY MOUTH EVERY 6 HOURS NEEDED FOR WHEEZING active Not Available Not Available No t Available SSD 1 % topical cream APPLY A 1/16 INCH (1.5 MM) THICK LAYER TO ENTIRE wound AREA BY TOPICAL ROUTE 2 TIMES PER DAY, 3 weeks active Not Available Not Available No t Available pioglitaz one 30 mg tablet 03/19 completed Not Available Not Available Not Available losartan 100 mg tablet TAKE 1 TABLET BY MOUTH DAILY active Not Available Not Available No t Available fluticaso ne propionat e 50 mcg/actua tion nasal spray,tali pension USE 1-2 SPRAYS IN EACH NOSTRIL DAILY active Not Available Not Available No t Available metformin ER 500 mg tablet,ex tended release 24 hr TAKE 4 TABLETS BY MOUTH EVERY DAY WITH YOUR EVENING MEAL active Not Available Not Available No t Available clotrimaz ole 1 % topical cream APPLY TO THE AFFECTED AREA AND SURROUND ING AREAS OF SKIN TWICE DAILY FOR 2 WEEKS active Not Available Not Available No t Available calcitrio l 0.25 mcg capsule TAKE 1 CAPSULE BY MOUTH EVERY DAY active Not Available Not Available No t Available ipratropi um bromide 21 mcg (0.03 %) nasal spray INSTILL 2 SPRAYS ONCE TO THREE TIMES DAILY INTO EACH NOSTRIL active Not Available Not Available No t Available Microlet Lancet USE TO TEST BLOOD SUGAR THREE TIMES DAILY active Not Available Not Available No t Available amoxicill in 875 mg-potass ium clavulana te 125 mg tablet TAKE 1 TABLET BY MOUTH TWICE DAILY WITH FOOD FOR 7 DAYS 12/31 completed Not Available Not Available Not Available neomycin 3.5 mg/g-poly myxin B 10,000 unit/g-de xameth 0.1 % eye oint 03/19 completed Not Available Not Available Not Available Cough Syrup DM 10 mg-100 mg/5 mL 06/05 completed Not Available Not Available Not Available escitalop nguyen 10 mg tablet 07/27 completed Not Available Not Available Not Available escitalop nguyen 20 mg tablet qd active Not Available Not Available Not Available rosuvasta tin 40 mg tablet TAKE 1 TABLET BY MOUTH DAILY FOR HIGH CHOLESTE ROL. STOP ATORVAST ATIN active Not Available Not Available No t Available Spiriva with [employer] r 18 mcg and inhalatio n capsules INHALE CONTENTS OF 1 CAPSULE ONCE DAILY USING HANDIHAL ER active Not Available Not Available No t Available Atrovent HFA 17 mcg/actua tion aerosol inhaler Inhale 2 puffs 4 times a day by inhalati on route as directed for 30 days. 02/26 completed Not Available Not Available Not Available Unifine Pentips 31 gauge x 1/4 needle DIRECTED EVERY DAY active Not Available Not Available No t Available ProAir HFA 08/18 completed Not Available Not Available Not Available Januvia 100 mg tablet TAKE 1 TABLET BY MOUTH EVERY DAY DIRECTED 07/16 completed Not Available Not Available Not Available Symbicort 160 mcg-4.5 mcg/actua tion HFA aerosol inhaler INHALE 2 PUFFS BY MOUTH TWICE DAILY active Not Available Not Available No t Available Symbicort 80 mcg-4.5 mcg/actua tion HFA aerosol inhaler Inhale 2 puffs twice a day by inhalati on route as directed . active Not Available Not Available No t Available Lantus Solostar U-100 Insulin 100 unit/mL (3 mL) subcutane ous pen ADMINIST ER 21 UNITS UNDER THE SKIN EVERY DAY AT BEDTIME FOR DIABETES MELLITUS active Not Available Not Available No t Available Mucinex 1,200 mg tablet, extended release Take 1 tablet twice a day by oral route as directed for 30 days. 10/26 completed Not Available Not Available Not Available Dulera 100 mcg-5 mcg/actua tion HFA aerosol inhaler INHALE 2 PUFFS BY MOUTH TWICE DAILY DIRECTED active Not Available Not Available No t Available Combivent Respimat 20 mcg-100 mcg/actua tion solution for inhalatio n Inhale 1 puff 4 times a day by inhalati on route as directed for 30 days. 06/27 completed Not Available Not Available Not Available Aerospan 80 mcg/actua tion HFA aerosol inhaler Inhale 2 puffs twice a day by inhalati on route as directed for 30 days. 02/26 completed Not Available Not Available Not Available Farxiga 10 mg tablet TAKE 1 TABLET BY MOUTH ONCE DAILY active Not Available Not Available No t Available potassium chloride ER 20 mEq tablet,ex tended release active Not Available Not Available Not Available Jardiance 10 mg tablet TAKE 1 TABLET BY MOUTH DAILY active Not Available Not Available No t Available Jardiance 25 mg tablet TAKE 1 TABLET BY MOUTH EVERY DAY DIRECTED 07/02 completed Not Available Not Available Not Available Trulicity 1.5 mg/0.5 mL subcutane ous pen injector ADMINIST ER 1.5 MG UNDER THE SKIN 1 TIME A WEEK 07/16 completed Not Available Not Available Not Available Trulicity 0.75 mg/0.5 mL subcutane ous pen injector ADMINIST ER 0.75 MG UNDER THE SKIN 1 TIME A WEEK 07/16 completed Not Available Not Available Not Available Spiriva Respimat 2.5 mcg/actua tion solution for inhalatio n INHALE 2 PUFFS BY MOUTH EVERY DAY DIRECTED active Not Available Not Available No t Available Incruse Ellipta 62.5 mcg/actua tion powder for inhalatio n INHALE 1 PUFF BY MOUTH DAILY 06/15 completed Not Available Not Available Not Available Breo Ellipta 200 mcg-25 mcg/dose powder for inhalatio n Inhale 1 puff every day by inhalati on route as directed for 30 days. 03/19 completed Not Available Not Available Not Available TRUEplus Pen Needle 31 gauge x /16 USE DAILY active Not Available Not Available No t Available OneTouch Ultra2 Meter USE TO CHECK BLOOD GLUCOSE DIRECTED BY AIDA Correa active Not Available Not Available No t Available OneTouch Delica Plus Lancet 30 gauge USE TO TEST BLOOD GLUCOSE THREE TIMES DAILY active Not Available Not Available No t Available Brukinsa 80 mg capsule active Stopped Not Available Not Available Not Available Afluria Qd 2019- (36 mos up)(PF)60 mcg (15 mcg x4)/0.5 mL IM syringe 08/18 completed Not Available Not Available Not Available Trulicity 3 mg/0.5 mL subcutane ous pen injector ADMINIST ER 3 MG UNDER THE SKIN 1 TIME A WEEK active Not Available Not Available No t Available Vitals Date Recorded Body height Heart rate Respiratory rate Body temperature Oxygen saturation Oxygen saturation in Arterial blood by Pulse oximetry Systolic And Diastolic Provider Name and Address Organization Details Last Updated DateTime 5 177.8 cm 71 /min 18 /min 97.6 [degF] 100 % 100 % 145/86 mm[Hg] Marylou Lots[facility] 5 12:18:17 Date Recorded Body height Heart rate Respiratory rate Body temperature Oxygen saturation Oxygen saturation in Arterial blood by Pulse oximetry Body mass index (BMI) Body weight Systolic And Diastolic Provider Name and Address Organization Details Last Updated DateTime 5 177.8 cm 66 /min 17 /min 97.8 [degF] 100 % 100 % 27.8 kg/m2 47099.9 2 g 155/90 mm[Hg] Marylou Lots[facility] 5 14:07:04 Date Recorded Body height Body mass index (BMI) Body weight Heart rate Respiratory rate Oxygen saturation Oxygen saturation in Arterial blood by Pulse oximetry Systolic And Diastolic Provider Name and Address Organization Details Last Updated DateTime 5 177.8 cm 27.8 kg/m2 12348.9 2 g 75 /min 14 /min 98 % 98 % 136/69 mm[Hg] Clare Schulz [facility] [employer] [facility] 5 10:30:06 Date Recorded Body height Body mass index (BMI) Body weight Heart rate Respiratory rate Body temperature Oxygen saturation Oxygen saturation in Arterial blood by Pulse oximetry Systolic And Diastolic Provider Name and Address Organization Details Last Updated DateTime 5 177.8 cm 27.8 kg/m2 13000.9 2 g 66 /min 18 /min 98.6 [degF] 99 % 99 % 131/73 mm[Hg] Marylou Homero [facility] [employer] 5 10:35:20 Date Recorded Body height Body mass index (BMI) Body weight Heart rate Respiratory rate Oxygen saturation Oxygen saturation in Arterial blood by Pulse oximetry Systolic And Diastolic Provider Name and Address Organization Details Last Updated DateTime 5 177.8 cm 27.8 kg/m2 26900.9 2 g 67 /min 14 /min 98 % 98 % 135/72 mm[Hg] Clare Schulz [facility] [employer] [facility] 5 16:50:19 Social History Question Answer Notes LastModified by Organizat ion Details LastModified Time Tobacco Smoking Status Former Smoker Not Available [facility] 06/14/2022 04:12:32 What Is Your Level Of Caffeine Consumption? Moderate Every Am Has Coffee [id number] Information not available 06/14/2022 In The 14 Days Before Symptom Onset, Have You Had Close Contact With A Laboratory-confir med COVID-19 While That Case Was Ill? No [id number] Information not available 06/14/2022 In The 14 Days Before Symptom Onset, Have You Had Close Contact With A Person Who Is Under Investigation For COVID-19 While That Person Was Ill? No [id number] Information not available 06/14/2022 When Did You Quit Smoking? 16+yearssinc elastcigaret te [id number] Information not available 06/14/2022 Do You Have Any Pets? Yes Dog That Lives Inside The Home [id number] Information not available 06/14/2022 At What Age Did You Start Smoking Tobacco? 13 [id number] Information not available 06/14/2022 How Many Years Have You Smoked Tobacco? 20 [id number] Information not available 06/14/2022 Have You Recently Traveled Abroad? No [id number] Information not available 06/14/2022 Sex: Unknown Functional Status Question Answer Note LastModified by Organizat ion Details LastModified Time Do you use any illicit or recreational drugs? No [id number] Information not available 06/14/2022 Do you or have you ever used any other forms of tobacco or nicotine? No [id number] Information not available 06/14/2022 What is your level of alcohol consumption? None quit over 20 or more years [id number] Information not available 06/14/2022 Mental Status None recorded. Family History Nothing Reported Notes:Both parents Medical History Condition Response MRSA N SLEEP APNEA N ALLERGIES/HAYFEVER N LUNG DISEASE/DISORDER N INSOMNIA N HISTORY OF DRUG ABUSE N RADIATION / CHEMOTHERAPY N COPD Y HIGH CHOLESTEROL / HYPERLIPIDEMIA N HYPERTHYROIDISM N BLOOD DISEASES N EAR OR HEARING PROBLEMS N HYPOTHYROIDISM N SHINGLES N DEPRESSION (INCLUDING POST ) N HAVE YOU BEEN HOSPITALIZED OR SEEN IN [facility] ER IN THE PAST YEAR ? N STROKE/TIA N ULCERS N OBESITY N ANEURYSM N HISTORY WITH COMPLICATIONS WITH ANESTHES IA ? N NO SIGNIFICANT PAST MEDICAL HISTORY N USE OF BLOOD THINNERS N DIABETES, TYPE Y PARATHYROID DISEASE N ENT N SEASONAL ALLERGIES N HEARTBURN / REFLUX N HEPATITIS / LIVER DISEASE N SLEEP DISORDER N HEADACHES/MIGRAINES N SEIZURES/EPILEPSY N CHF N PACEMAKER N DIZZINESS N HEART DISEASE/HEART PROBLEMS N AIDS/HIV N FRACTURES N HYPERTENSION N CANCER: SPECIFY N TOURETTE'S N BLOOD TRANSFUSION N ANESTHESIA COMPLICATIONS N ANEMIA/BLOOD DISORDER N CHRONIC EAR INFECTIONS N TUBERCULOSIS N Immunizations Vaccine Type Date Status Note Provider Nam e and Address Organization Details Recorded Time COVID-19, mRNA, LNP-S, PF, 100 mcg/0.5mL dose or 50 mcg/0.25mL dose 1 completed Not Available [facility] 06/14/2022 05:02:37 COVID-19, mRNA, LNP-S, PF, 100 mcg/0.5mL dose or 50 mcg/0.25mL dose 03/03/202 1 completed Not Available [facility] 06/14/2022 05:02:37 Influenza, high-dose, trivalent, PF 8 completed Not Available [facility] 06/14/2022 05:02:37 pneumococcal polysaccharide PPV23 7 completed Not Available [facility] 06/14/2022 05:02:37 Past Encounters Encounter ID Performer Location Encounter Start Date Encounter Closed Date Diagnosis/Indication Diagnosis SNOMED-CT Code Diagnosis ICD10 Code Diagnosis IMO Codes Diagnosis Note [id number] [facility] [place] [address] [place] [address] 08/18/2020 00:00:00 08/18/2020 14:14:01 [id number] [facility] _ATHENA_M IGRATION_ DEFAULT_1 _1 , 10/01/2020 00:00:00 10/01/2020 10:29:45 [id number] [facility] [place] [address] [place] [address] 12/16/2020 00:00:00 12/16/2020 12:51:02 [id number] [facility] _ATHENA_M IGRATION_ DEFAULT_1 _1 , 12/17/2020 00:00:00 12/17/2020 11:13:29 [id number] [facility] _ATHENA_M IGRATION_ DEFAULT_1 _1 , 03/18/2021 00:00:00 03/22/2021 10:42:24 [id number] [facility] _ATHENA_M IGRATION_ DEFAULT_1 _1 , 03/25/2021 00:00:00 03/25/2021 10:33:36 [id number] [facility] [place] [address] [place] [address] 04/12/2021 00:00:00 04/12/2021 12:17:37 [id number] [facility] [place] [address] [place] [address] 06/15/2021 00:00:00 06/15/2021 12:44:29 [id number] S_Histor ic[facility]Gateway [facility] [place] [address] [place] [address] 07/27/2021 00:00:00 07/27/2021 12:54:44 [id number] [facility]Gateway _ATHENA_M IGRATION_ DEFAULT_1 _1 , 08/05/2021 00:00:00 08/07/2021 15:56:54 [id number] HORTENSIA Enriquez [facility] [place] [address] [place] [address] 10/26/2021 00:00:00 10/26/2021 13:26:06 [id number] [facility]_Histor [facility]Gateway _ATHENA_M IGRATION_ DEFAULT_1 _1 , 11/04/2021 00:00:00 11/07/2021 08:45:10 [id number] [facility]_Histor [facility]Gateway _ATHENA_M IGRATION_ DEFAULT_1 _1 , 02/03/2022 00:00:00 02/05/2022 13:57:41 [id number] Melody Gee PILE HEADER- [facility] [place] [address] [place] [address] 03/01/2022 00:00:00 03/01/2022 12:51:30 [id number] Jose Andrews DPM [facility] [place] [address] [place] [address] 06/13/2022 00:00:00 06/13/2022 17:23:26 [id number] Jose Andrews DPM [facility] [place] [address] [place] [address] 09/12/2022 17:14:49 09/13/2022 11:11:17 Diabetes mellitus 12127831 E11.40 B35.1 Z74.1 M79.676 Continue PCP recommenda tionContin ue supportive shoe gearFollow -up in 3 months for diabeticfo ot exam Onychomyco sis of toenails 957554491 B35.1 Nails 1 through 10 were debrided with sharp mechanical debridemen t without incident. Nails were debrided and greater than 50% length and thickness where needed. Callosity on toe 20090724 01 L84 right 4th toeDebride d without incidentCo ntinue conservati ve management denies surgeryFol low-up 3 months Hammer toe 968126712 M20 .40 continue conservati ve management Educated on treatment optionsFol low-up in 3 months Unable to cut own toenails 382023608 Z74.1 secondary to COPD [id number] Melody Gee, PILE HEADER- [facility] [place] [address] [place] [address] 09/27/2022 12:13:30 09/27/2022 12:57:51 Multiple nodules of lung 292132907 R91.8 PET-CT negative [address] chest 09/2021 with significan t improvemen t in size of nodulesPla n to repeat CT chest in one year and with changes in conditionD ue 09/2022 - ordered today Moderate c hronic obstructive pulmonary disease 546184479 J44.9 PFT 09/13/17 with FEV1:FVC ratio 62%.FEV1 73%.TLC 140, FRC 176, RV 196.DLCO 56% corrected. Repeat 07/2022 with similar valuesAlph a 1 MM normal.Con tinue Spiriva Handihaler He has had frequent thrush/fun gal infections , switched to Dulera with aerochambe rReviewed use and instructed on technique todayConti nue ProAir PRN - discussed indication s for useReporta ble signs and symptoms discussed. Continue Mucinex BIDRTC 4-6 months, PRN for concerns. Dyspnea on exertion 6084 5006 R06.09 RAST and Quantifero n GOLD negativeSi x minute walk test 07/2022 - WNL Chronic hoarseness 26952 77550 105 R49.0 Follows with ENT, also with lesion previously removed from vocal cord Obstructiv e sleep apnea syndrome 15256907 G47.33 Not corrected, uninterest ed in troublesho oting.I have offered home study optionHe is aware of the risks of uncorrecte d HUMPHREY, including [id number] Jose Andrews DPM [facility] [place] [address] [address] 12/12/2022 17:42:43 12/12/2022 18:21:37 Hammer toe 398063740 M20.40 continue conservati ve management - worse to the left 2nd 3rdEducate d on treatment optionsFol low-up in 3 months [place] of toe 17910421 L84 bilateral 4th toesdebrid ed without incidentfa iled conservati ve offloading with silicone toe sleeve Acquired r ight mallet toe 6226676227 4889307 M20.5X1 right 4th toeflexor tenotomy performed todaywound care instructio ns reviewed with the patientFol low up in 3 weeks Onychomyco sis of toenails 634467385 B35.1 Nails 1 through 10 were debrided with sharp mechanical debridemen t without incident. Nails were debrided and greater than 50% length and thickness where needed. Unable to cut own toenails 773004024 Z74.1 secondary to COPD [id number] oJse Andrews DPM [facility] Pod[facility] [place] [address] [place] [address] 01/02/2023 16:16:54 01/03/2023 12:06:28 Callosity on toe 416055285 L84 right 4th toeDebride d without incidentCo ntinue conservati ve management denies surgeryFol low-up 3 months Acquired r ight mallet toe 4316387903 8786655 M20.5X1 right 4th toeflexor tenotomy performed , healed [id number] Jose Andrews DPM [facility] Pod[facility] [place] [address] [address] 01/30/2023 15:52:03 01/30/2023 16:37:32 Callosity on toe 686442462 L84 right 4th toeDebride d without incidentCo ntinue conservati ve management denies surgeryFol low-up 3 months Acquired r ight mallet toe 2714556456 4493929 M20.5X1 right 4th toeflexor tenotomy Healed [id number] Melody Gee, PILE HEADER-BC [facility] [place] [address] [place] [address] 02/26/2023 11:15:01 02/26/2023 11:56:16 Moderate chronic obstructive pulmonary disease 477494132 J44.9 PFT 09/13/17 with FEV1:FVC ratio 62%.FEV1 73%.TLC 140, FRC 176, RV 196.DLCO 56% corrected. Repeat 07/2022 with similar valuesAlph a 1 MM normal.Con tinue Spiriva Handihaler once dailyHe has had frequent thrush/fun gal infections , switched to Dulera 100 BID with aerochambe r, good benefit with decreased thrush reactionsR eviewed use and instructed on technique todayConti nue ProAir PRN - discussed indication s for useReporta ble signs and symptoms discussed. Continue Mucinex BIDAdvised vaccines this fall Multiple n odules of lung 127729096 R91.8 PET-CT negative 09/21/[address] chest 09/2021 with significan t improvemen t in size of nodulesCT chest 10/2022: Pleural based 1.1x3x1.7c m area to the right LL posteriorl y -?round atelectasi s. Also with TIB opacities scattered through out R lung.Repea t 01/2023 with improved TIB to RUL. TIB to RLL is unchanged. Consolidat ion to RLL with calcificat ions and unchanged from previous CT per dictation. I do not have images.He is asymptomat ic.DW Mr Cody.R ecommend repeat in 3-6 months. Dyspnea on exertion 6084 5006 R06.09 RAST and Quantifero n GOLD negativeSi x minute walk test 07/2022 - WNL Chronic hoarseness 33915 15154 105 R49.0 Follows with ENT, also with lesion previously removed from vocal cord Obstructiv e sleep apnea syndrome 95143122 G47.33 Not corrected, uninterest ed in troublesho oting.I have offered home study optionHe is aware of the risks of uncorrecte d HUMPHREY, including Ex-smoker 6219223 Z87.89 1 [id number] Jose Andrews DPM [facility] Pod[facility] [place] [address] [address] 04/03/2023 15:04:05 04/04/2023 11:52:35 Acquired right mallet toe 6041033511 5848264 M20.5X1 right 4th toe- near rectusflex or tenotomy Healedcont inue supportive shoe gearfollow -up 3 months Hammer toe 521502093 M20 .40 right 2nd and 3rd toestoe spacerto reduce pressure on 4th toemonitor for wounds [place] of toe 47998275 L84 right 4th toedebride d without incidentto e spacer dispensed to prevent 4th toe under riding of the 3rd [id number] Jose Andrews DPM [facility] Pod[facility] [place] [address] [address] 07/03/2023 15:43:26 07/11/2023 16:00:35 Acquired right mallet toe 8829409415 4363725 M20.5X1 right 4th toe- resolvedfl exor tenotomy Healedcont inue supportive shoe gearfollow -up 3 months Diabetes mellitus 249851 09 E11.40 B35.1 Z74.1 M79.676 ChronicCon tinue PCP recommenda tion- glucose controlCon tinue supportive shoe gearFollow -up in 3 months for diabetic foot exam Onychomyco sis of toenails 336078857 B35.1 Nails 1 through 10 were debrided with sharp mechanical debridemen t without incident. Nails were debrided and greater than 50% length and thickness where needed. [id number] Jose Andrews DPM [facility] [place] [address] [address] 10/02/2023 15:42:48 10/05/2023 08:39:39 Foot callus 234367184 L84 Plantar right foot callusdebr ided without incidentRx Amlactinfo llow-up 3 months Pain in right foot 03092 58220 37816 M79.671 secondary to aboveconti nue supportive shoe gear [id number] Jose Andrews DPM [facility] Pod[facility] [place] [address] [place] [address] 01/01/2024 14:42:46 01/02/2024 14:47:14 Diabetes mellitus 89773448 E11.40 B35.1 Z74.1 M79.676 ChronicCon tinue PCP recommenda tion- glucose control Diabetic p eripheral neuropathy 532862756 E11.40 continue supportive shoe gearCheck feet daily for wounds infectionF ollow-up in 3 months Onychomyco sis of toenails 484416776 B35.1 Patient was educated on treatment options of onychomyco sis. Patient's nails 1 through 10 were debrided without incident. Patient defers pharmacolo gical management due to possible side effects and will continue with conservati ve options. Return to clinic as needed every 3 months for this problem Unable to cut own toenails 372305253 Z74.1 secondary to COPD [id number] Jose Andrews DPM [facility] [place] [address] [address] 04/01/2024 12:38:21 04/11/2024 15:17:16 Diabetes mellitus 11085737 E11.40 B35.1 Z74.1 M79.676 ChronicCon tinue PCP recommenda tion- glucose control Diabetic p eripheral neuropathy 010553541 E11.40 continue supportive shoe gearCheck feet daily for wounds infectionF ollow-up in 3 months Dystrophia unguium 04309 009 L60.3 nails debrided without incident 1 through 10 Unable to cut own toenails 573445863 Z74.1 secondary to COPD [id number] Jose Andrews DPM [facility] [address] [place] [address] 07/01/2024 12:34:29 07/01/2024 15:41:03 Peripheral arterial occlusive disease 548833604 I73.9 discuss testingobt ain non-invasi ve vascular testing to ensure adequate healing for possible bunion correction Dystrophia unguium 02267 009 L60.3 nails debrided without incident 1 through 10 Bunion 745847084 M21.61 9 obtain x-raysposs ible silver bunionecto my to reduce prominence , pending arterial ultrasound Fissure in skin 48905617 R23.4 left bunion medial aspectcons ervative offloading recommend wide/soft shoe gear Callus of heel 425594790 L84 bilateral heelsrecom mend deep heel cup orthotics and supportive shoe gear Diabetes mellitus 446419 09 E11.40 B35.1 Z74.1 M79.676 ChronicCon tinue PCP recommenda tion- glucose control Diabetic p eripheral neuropathy 277832693 E11.40 continue supportive shoe gearCheck feet daily for wounds infectionF ollow-up in 3 months Diabetic on insulin 1707 25331 Z79.4 [id number] Jose Andrews DPM [facility] [address] [place] [address] 07/16/2024 12:11:04 07/16/2024 12:42:35 Bunion 702017029 M21.619 obtain x-raysposs ible silver bunionecto my to reduce prominence , pending arterial ultrasound Fissure in skin 99482485 R23.4 left bunion medial aspectcons ervative offloading daily dressings with Silvadenei f becomes infected seek medical attention immediatel yrecommend wide/soft shoe gearfollow -up 1 week Peripheral arterial occlusive disease 321364229 I73.9 obtain vascular studies Skin eschar 180036798 R2 3.4 left dorsal sub 5th metatarsal head areanormal fashionkee p clean and dryfollow- up 1 week [id number] Jose Andrews DPM [facility] [address] [place] [address] 07/23/2024 13:59:49 08/04/2024 10:36:37 Bunion 839166660 M21.619 obtain x-raysposs ible silver bunionecto my to reduce prominence , pending arterial ultrasound Fissure in skin 13767044 R23.4 left bunion medial aspectcons ervative offloading daily dressings with Silvadenei f becomes infected seek medical attention immediatel yrecommend wide/soft shoe gearfollow -up 1 week Peripheral arterial occlusive disease 182340862 I73.9 obtain vascular studies-- Awaiting test not performed Skin eschar 446223812 R2 3.4 left dorsal sub 5th metatarsal head areanormal fashionkee p clean and dryfollow- up 1 week [id number] Jose Andrews DPM [facility] [place] [address] [place] [address] 07/28/2024 10:23:01 07/30/2024 16:08:32 Bunion 457042552 M21.619 obtain x-raysposs ible silver bunionecto my to reduce prominence , pending arterial ultrasound Fissure in skin 51342643 R23.4 left bunion medial aspectcons ervative offloading daily dressings with Silvadenei f becomes infected seek medical attention immediatel yrecommend wide/soft shoe gearfollow -up 1 week Peripheral arterial occlusive disease 902593660 I73.9 obtain vascular studies Tear of skin 253968644 T 14.8XXA leftplanta r sub 1st metatarsal headoffloa ded felt added to the sub 1st metatarsal headwound care to prevent infectionf ollow-up 1 week [id number] Jose Andrews DPM [facility] [address] [place] [address] 08/20/2024 10:23:54 08/20/2024 14:02:42 Bunion 970401514 M21.619 obtain x-raysat this time will continue conservati ve options if the continuati on of wounds and high pressure recur then he will need surgery as per belowpossi ble silver bunionecto my to reduce prominence , pending arterial ultrasound Fissure in skin 76890578 R23.4 left bunion medial aspectHeal ed Tear of skin 600699150 T 14.8XXA leftplanta r sub 1st metatarsal headhealed Peripheral arterial occlusive disease 888137061 I73.9 obtain vascular studies [id number] Jose Andrews DPM [facility] [place] [address] [facility] [address] [place] [address] 12/18/2024 16:43:35 12/19/2024 13:34:53 Diabetes mellitus 06146454 E11.40 B35.1 Z74.1 M79.676 ChronicCon tinue PCP recommenda tion- glucose control Peripheral arterial occlusive disease 253807413 I73.9 obtain vascular studies Diabetic p eripheral neuropathy 927563706 E11.40 continue supportive shoe gearCheck feet daily for wounds infectionF ollow-up in 3 months Dystrophia unguium 92071 009 L60.3 nails debrided without incident 1 through 10 Health Concerns Section Related Observation LastModified by Organization Detai ls LastModified Time None Recorded Concern Status LastModified by Organization Details LastModified Time None Recorded Advance Directives Directive None Recorded Payers Insurance Date Sequence Insurance Name Policy Number Policy Lester Covered Member ID Lester Member ID Guarantor Name 12/15/2024 1 [facility] (MEDICAID HMO) [id number] Jase Ross [id number] Jase Ross Notes Date Note Type Note Provider Name and Address Organization Details Recorded Time 07/16/2024 text/html . Patient is a 78-year-old male who returns the office for complaints of continued skin fissure to the medial eminence of the left great toe secondary to bunion and pressure. I advised the patient to change his shoe gear which he has not performed. I also ordered arterial studies on 07/01 which he has also not obtained. Patient states he continues to have pain and pressure to the area. Pending his arterial studies will dictate whether not we are able to perform conservative silver bunionectomy to reduce the pressure of the bunion. Patient denies any other complaints. Jose Andrews DPM [address] [facility], [facility] [address], [place], [address], [facility] 07/16/2024 12:40:30 07/23/2024 text/html . Patient is a 78-year-old male who returns the office for follow-up on a wound to the left medial eminence of the bunion he states he continues have pain to the area he has a small dermal wound from a skin fissure he denies any signs of infection he states that he has his arterial ultrasound scheduled for the end of the week. Patient denies any other complaints. Jose Andrews DPM [address], [place], [address], [facility] 08/04/2024 09:22:22 07/28/2024 text/html . Patient is a 78-year-old male who returns to the office with a new wound to the plantar sub 1st metatarsal head of the left foot. Patient states that he developed a skin tear under the 1st metatarsal head he states he has been applying the topical medication to the area. Patient has maceration to the area I did explain that he is applying too much of the medication which is causing softening of the skin which could least to worsening of the wound. Patient is scheduled for the upcoming arterial testing. patient denies any other complaints. Jose Andrews DPM [address], [place], [address], [facility] 07/28/2024 11:19:15 08/20/2024 text/html ROS as noted in the HPI . Patient is a 78-year-old male who returns the office for follow-up on a wound to the medial great toe which is completely healed he denies any new wounds he denies any pain to the area. Patient denies any other complaints. Jose Andrews DPM [address], [place], [address], [facility] 08/20/2024 12:07:18 12/18/2024 text/html . Patient is a 79-year-old male diabetic who returns the office for diabetic foot care. Patient denies any new complaints he denies any intermittent claudication walking or rest pain. Patient denies any wounds to the feet or pain when weight-bearing. Patient would like his nails cut as he can not cut them due to thickness. Jose Andrews DPM [address], [address], [place], [id number], [employer] 12/18/2024 17:23:51
--- OUTSIDE RECORDS SUMMARY | 2025-02-09 16:19 | XMS_ITS | Encounter Summary ---
Author Organization [facility] Address On license of [facility] [place] [address] Care Team Providers Care [employer] Professor Name Role Phone Unavailable Primary Care Provider Unavailabl e Encounter Details Date Type Department Care Team (Late st Contact Info) Description 09/25/2017 [facility] Nilson Ambrose MD [address] [id number] Social History Tobacco Use Types Packs/Day Years Used Date Smoking Tobacco: Never Assessed Sex and Gender Information Value Date Recorded Sex Assigned at Not on file Legal Sex Male 5:01 PM CDT Gender Identity Not on file Sexual Orientation Not on file documented as of this encounter Miscellaneous Notes * Letter - Nilson Ambrose MD - 09/25/2017 12:00 AM CDT Oct 04, 2017 Jase Ross [address] [place] [address] Dear Jase Ross, Thank you for choosing [facility] for your health care needs. We appreciate the opportunity to help you maintain your well being. You recently had a urine screening. Your results came back as expected. Please remember to follow up every 3 months for medications as per the controlled substance contract. If you have any questions please feel free to call the officeat [phone], Option #3 or Option #1 to make an appointment to discuss these results. Respectfully Yours, Electronically Signed by: Nilson Ambrose MD Cc: Patients Medical Record [employer]PERATIONS documented in this encounter Plan of Treatment Not on file documented as of this encounter Visit Diagnoses Not on filedocumented in this encounter
--- OUTSIDE RECORDS SUMMARY | 2025-02-09 16:19 | XMS_ITS | Clinical Summary ---
Author Organization [facility] Address [address] [place] [address] Care Team Providers Care Tanker Driver Name Role Phone Melody Gee NP Unavailable Bhavesh Marroquin MD Primary Care Provider Kamran Jacobson MD Unavailable [phone] Ole Leroy DO Unavailable [phone] Allergies Active Allergy Reactions Criticality Noted Date Comments Codeine Itching Low 09/10/2020 Empagliflozin Other (See comments) 12/10/2024 Yeast infection Medications carvedilol (COREG) 12.5 mg tablet Take 1 tablet (12.5 mg total) by mouth 2 (two) times a day with meals 8 Active POTASSIUM CHLORIDE ER 20 mEq CR tablet 8 Active rosuvastatin (CRESTOR) 40 mg tablet rosuvastatin 40 mg tablet TAKE 1 TABLET BY MOUTH DAILY FOR HIGH CHOLESTEROL. STOP ATORVASTATIN Active ergocalciferol (VITAMIN D) 50,000 unit capsule Take 1 capsule (50,000 Units total) by mouth once a week 3 Active calcitRIOL (ROCALTROL) 0.25 mcg capsule Take by mouth daily Active HYDROcodone-landon taminophen (NORCO) 5-325 mg per tablet Take 1 tablet by mouth 2 (two) times a day as needed 3 Active TRUEplus Pen Needle 31 gauge x 5/16 needle daily 3 Active fluticasone propionate (FLONASE) 50 mcg/actuation nasal spray 3 Active omeprazole (PriLOSEC) 40 mg capsule TAKE 1 CAPSULE BY MOUTH EVERY DAY 30 MINUTES TO 1 HOUR BEFORE DINNER/LAST MEAL OF DAY Active losartan (COZAAR) 100 mg tablet Take 1 tablet (100 mg total) by mouth daily 4 Active OneTouch Delica Plus Lancet 30 gauge miscIndications :Type 2 diabetes mellitus with hyperglycemia, without long-term current use of insulin ([facility]) 3 x daily 300 each 3 4 Active C-nariouch Verio Flex meter miscIndications :Type 2 diabetes mellitus with hyperglycemia, without long-term current use of insulin ([facility]) One glucometer 1 each 4 Active All-Scrapio test strips stripIndication s:Type 2 diabetes mellitus with hyperglycemia, without long-term current use of insulin ([facility]) Check 2-3 x daily 300 each 3 4 Active blood-glucose meter miscIndications :Type 2 diabetes mellitus with hyperglycemia, without long-term current use of insulin ([facility]) One Touch Verio Reflect Use to check BG 2-3 times daily 1 each 4 Active ipratropium (ATROVENT) 21 mcg (0.03 %) nasal spray INSTILL 2 SPRAYS ONCE TO THREE TIMES DAILY INTO EACH NOSTRIL 5 Active TRUEplus Pen Needle 31 gauge x 1/4 needle DIRECTED EVERY DAY 4 Active dulaglutide (Trulicity) 3 mg/0.5 mL pen injectorIndicat ions:type 2 diabetes mellitus Inject 0.5 mL (3 mg total) under the skin once a week 6 mL 3 5 06/19/19 26 Active albuterol HFA (PROVENTIL HFA,VENTOLIN HFA,PROAIR HFA) 90 mcg/actuation inhaler Inhale 2 puffs every 6 (six) hours as needed for wheezing 1 each 5 Active Spiriva with HandiHaler 18 mcg per inhalation capsule Place 1 puff (1 capsule total) into inhaler and inhale daily 30 capsule 11 5 Active LANTUS 100 unit/mL (3 mL) pen for injectionIndica tions:Type 2 diabetes mellitus with hyperglycemia, with long-term current use of insulin ([facility]) ADMINISTER 18 UNITS UNDER THE SKIN EVERY NIGHT 15 mL 5 Active Active Problems Problem Noted Date Diagnosed Date CAP (community acquired pneumonia) 08/15/2024 Assessment & Plan (09/22/2024 3:08 PM CDT): He has had a significant decrease in the consolidation to the left lower lobe, indicating improvement and/or resolution. Clinically he has improved significantly. I think it is reasonable to return to annual screening. Assessment & Plan (08/15/2024 1:33 PM CDT): I will repeat his CT chest to assess for improvement and/or resolution In the interval he is aware of reportable signs and symptoms Major depressive disorder, recurrent, moderate 0 08/12/2024 Hemoptysis 08/05/2024 Assessment & Plan (02/02/2025 3:05 PM CDT): This resolved with antibiotic treatment He has not had any other antibiotics or steroids in the last year. Assessment & Plan (09/22/2024 3:00 PM CDT): This resolved with antibiotic treatment Assessment & Plan (08/15/2024 1:31 PM CDT): This resolved with antibiotic treatment Pancytopenia 01/16/2024 Encounter for management of implanted device 05/2023 Stage 2 moderate COPD by GOLD classification 01/2024 Assessment & Plan (02/02/2025 3:04 PM CDT): Continue Spiriva Handihaler once daily at the same time There is no need at this time to escalate him to dual bronchodilator therapy. He does not have peripheral eosinophilia Continue albuterol 2 puffs every 4-6 hours as needed only, we have discussed indications for use He is aware of signs and symptoms that would require earlier evaluation or change to his plan of care. I would have a low threshold to escalate him to dual bronchodilator therapy if his symptoms were to worsen. Assessment & Plan (09/22/2024 2:59 PM CDT): Continue Spiriva Handihaler once daily at the same time Continue albuterol 2 puffs every 4-6 hours as needed only, we have discussed indications for use He is aware of signs and symptoms that would require earlier evaluation or change to his plan of care. I would have a low threshold to escalate him to dual bronchodilator therapy if his symptoms were to worsen. Assessment & Plan (08/15/2024 1:32 PM CDT): Continue Spiriva Handihaler once daily at the same time Continue albuterol 2 puffs every 4-6 hours as needed only, we have discussed indications for use He is aware of signs and symptoms that would require earlier evaluation or change to his plan of care. Assessment & Plan (03/12/2024 1:24 PM DOMESTIC LAUNDRY WORKER): Continue Spiriva Handihaler once daily Continue Dulera 100 twice daily Continue albuterol as needed only, we have discussed indications for use He is aware of signs and symptoms that would require earlier evaluation or change to his plan of care. Assessment & Plan (12/25/2023 3:37 PM CDT): Continue Spiriva Handihaler once daily We have discussed escalation of therapy if he were to experience increased respiratory symptoms Continue albuterol as needed only, we have discussed indications for use Hoarseness 12/25/2023 Assessment & Plan (02/02/2025 3:05 PM CDT): This is chronic and cyclic. He has not been on inhaled corticosteroids for quite some time. Dr. Resendiz following his case and is considering a vocal cord biopsy. Assessment & Plan (09/22/2024 3:00 PM CDT): This is chronic and cyclic. He has not been on inhaled corticosteroids for quite some time. I have advised him to reach out to Dr. Resendiz as this is worsening again Assessment & Plan (08/15/2024 1:31 PM CDT): This is chronic. He has had ENT evaluation and treatment with Diflucan His symptoms are much improved after treatment. I have discontinued low-dose ICS as maintenance therapy Assessment & Plan (03/12/2024 1:23 PM DOMESTIC LAUNDRY WORKER): He has had ENT evaluation and treatment with Diflucan His symptoms are much improved after treatment. Remain on low-dose ICS as maintenance therapy Assessment & Plan (12/25/2023 3:38 PM CDT): He has had ENT evaluation in the past. He has been off ICS for at least 3 months and this persists He has an appointment with ENT next month and I recommend repeat laryngoscopy Pulmonary nodules 12/25/2023 Assessment & Plan (03/12/2024 1:25 PM DOMESTIC LAUNDRY WORKER): Multiple tree-in-bud opacities noted on CT chest however they are somewhat resolved on recent imaging. These may be related to atypical infection, although at this time he is asymptomatic. If he were to experience difficulty in the future I would recommend sputum testing for AFB Assessment & Plan (12/25/2023 3:39 PM CDT): These may be related to atypical infection, although at this time he is asymptomatic. 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 Managed by Dr Jacobson in [place]. Sees him every 2-3 months. Has appt 11/2024. Has restarted him on Jardiance (stopped in past d/t yeast infections). Aware to watch for yeast infection. Nephropathy: On LANDON-I / ARB s : Yes. Losartan 100mg. Last MA: 02/18/24 (34) Last creat/GFR: 09/10/24 GFR=51, CR=1.40. Assessment & Plan (06/18/2024 10:05 AM DOMESTIC LAUNDRY WORKER): Chronic problem. Managed by Dr Jacobson in [place]. Has appt 07/2024 he believes. Sees him every 3 months. Nephropathy: On LANDON-I / ARB s : Yes. Losartan 50mg. Last MA: 02/18/24 (34) Last creat/GFR: 05/14/24 GFR=51, CR=1.40. Assessment & Plan (08/23/2023 3:34 PM CDT): Chronic problem. Managed by Dr Jacobson in [place]. Has appt 09/2023 he believes. Sees him every 3 months. Last creat/GFR: 08/20/23 GFR=52, CR=1.40. Assessment & Plan (03/26/2023 1:17 PM DOMESTIC LAUNDRY WORKER): On [facility] Assessment & Plan (12/14/2022 2:07 PM CDT): Chronic problem. Managed by Dr Jacobson in [place]. Chronic lymphoid leukemia, w ithout mention of having achieved remission(204.10) 12/13/2017 Hyperlipidemia associated with type 2 diabetes m adenike 08/29/2010 Overview (07/27/2017): Description: Hyperlipidemia Assessment & Plan (11/05/2024 8:52 AM CDT): Chronic problem. Controlled on current Rosuvatatin 40mg. Last lipid panel: 11/14/23 LDL=47, TG=75. Will update labs. Does not mychart. Verified phone #/address to contact re: results. Assessment & Plan (06/18/2024 9:55 AM DOMESTIC LAUNDRY WORKER): Chronic problem. Controlled on current Rosuvatatin 40mg. Last lipid panel: 11/14/23 LDL=47, TG=75. Assessment & Plan (02/20/2024 10:21 AM DOMESTIC LAUNDRY WORKER): Continue statin therapy Assessment & Plan (08/23/2023 3:26 PM CDT): Chronic problem. Controlled on current Rosuvatatin 40mg. Last lipid panel: 10/30/22 LDL=40, LX=115. Assessment & Plan (03/26/2023 1:16 PM DOMESTIC LAUNDRY WORKER): Chronic, stable Continue current statin therapy Tolerating well Assessment & Plan (12/14/2022 2:02 PM CDT): Chronic problem. Controlled on current Rosuvatatin 40mg. Last lipid panel: 10/30/22 LDL=40, VI=634. Assessment & Plan (09/13/2022 5:14 PM CDT): Chronic, stable Continue current statin therapy Tolerating well Hypertension associated with diabetes 08/29/2010 Overview (07/27/2017): Description: Hypertension Assessment & Plan (11/05/2024 8:53 AM CDT): Chronic problem. Controlled with current Carvedilol 12.5mg bid, losartan 100mg daily Assessment & Plan (06/18/2024 9:55 AM DOMESTIC LAUNDRY WORKER): Chronic problem. Controlled with current Carvedilol 12.5mg bid, losartan 100mg daily Assessment & Plan (02/20/2024 10:23 AM DOMESTIC LAUNDRY WORKER): Chronic, well controlled Continue losartan Assessment & Plan (08/23/2023 3:26 PM CDT): Chronic problem. Controlled with current Carvedilol 12.5mg bid, losartan 50mg daily, amlodipine 5mg daily. Assessment & Plan (03/26/2023 1:17 PM DOMESTIC LAUNDRY WORKER): Chronic, well controlled Continue amlodipine, losartan Assessment & Plan (12/14/2022 2:02 PM CDT): Chronic problem. Controlled with current Carvedilol 12.5mg bid, losartan 50mg daily, amlodipine 5mg daily. Assessment & Plan (09/13/2022 5:13 PM CDT): Chronic, well controlled Continue amlodipine, losartan Atherosclerosis of coronary artery 08/29/2010 Overview (07/27/2017): Description: Coronary Artery Disease Diabetes mellitus 03/22/2006 Assessment & Plan (11/05/2024 9:51 AM CDT): Chronic problem. A1c near goal & improved from 8.6% 06/18/24 to now 7.4%. If noticing lower blood sugars with starting the Jardiance; drop the Lantus 2 units weekly until the lows resolve. UTD DM eye exam (04/11/23 no DMR [facility]). 2023 at [facility], letter sent to get copy of report. Will update alb/lipid. Does not mychart. Verified phone #/address to contact re: results. Strive for regular exercise (30min most days) and diet (get at least 4-5 servings of fruit and veggies daily, avoid processed foods, increase lean protein intake and decrease carb portions as well as fruit juices, regular soda & desserts). Watch carbs and simple sugars. Check the blood sugar twice daily. Check the feet daily for skin breakdown and infection. Assessment & Plan (06/18/2024 10:07 AM DOMESTIC LAUNDRY WORKER): Chronic problem. A1c increased from 8.3% 02/2024 to now 8.6%. -increase Trulicity from 1.5mg to 3mg weekly at next refill -increase lantus from 21 to 25 units nightly Once you start the higher dose of Trulicity--watch your sugar closely. -adjust insulin up by 2 units weekly if still running persistently high -adjust insulin down by 2 units weekly if you start to go low persistently. Current medications: Trulicity 3 mg weekly Lantus 25 units every evening UTD DM eye exam (03/2023). 2023 at [place] [employer], letter sent to get copy of report. UTD on labs. Strive for regular exercise (30min most days) and diet (get at least 4-5 servings of fruit and veggies daily, avoid processed foods, increase lean protein intake and decrease carb portions as well as fruit juices, regular soda & desserts). Watch carbs and simple sugars. Check the blood sugar twice daily. Check the feet daily for skin breakdown and infection. Assessment & Plan (02/20/2024 10:23 AM DOMESTIC LAUNDRY WORKER): Chronic, uncontrolled, worsening Hemoglobin A1c 8.3%, goal A1c at least less than 7.5% without hypoglycemia Recommend to continue current dose of Lantus Plan to increase Trulicity to 1.5 mg subQ weekly Counseled on diet and exercise Educated on hypoglycemia Advised to cut back on Lantus if having low blood sugars Recommend annual dilated eye exam Daily foot care Follow-up in 4 months Assessment & Plan (08/23/2023 3:37 PM CDT): Chronic problem. A1c at goal wo hypoglycemia (6.9%). Being treated for CLL: having recent drop in WBC & platelet count. Dr Leroy discussing possible prednisone (or other treatments) pending labs repeated in 4 wks. Mr Ross will let us know if prednisone so we can update his diabetic regimen. Current medications: Metformin XR 1000mg daily Trulicity 0.75mg weekly Lantus 18 units every evening UTD DM eye exam (03/2023) UTD on labs. Strive for regular exercise (30min most days) and diet (get at least 4-5 servings of fruit and veggies daily, avoid processed foods, increase lean protein intake and decrease carb portions as well as fruit juices, regular soda & desserts). Watch carbs and simple sugars. Check the blood sugar twice daily. Check the feet daily for skin breakdown and infection. Assessment & Plan (03/26/2023 1:18 PM DOMESTIC LAUNDRY WORKER): Chronic, significant improvement in control A1c - 6.3 % Denies hypoglycemia - counseled on diet and exercise - keep taking Metformin the same - continue Lantus 18 units SQ daily - continue trulicity 0.75 mg SQ weekly - increase physical activity as tolerated - daily foot care - recommend annual dilated eye exam - follow up in 6 months Assessment & Plan (12/14/2022 2:05 PM CDT): Chronic problem. A1c at goal wo hypoglycemia. Current medications: Metformin XR 2000mg daily Trulicity 0.75mg weekly Lantus 18 units daily DM eye exam [address] [facility] in [place]--letter sent to get report. Will update MA/Cr today. Will update labs today. Does not mychart. Verified phone #/address to contact re: results. Strive for regular exercise (30min most days) and diet (get at least 4-5 servings of fruit and veggies daily, avoid processed foods, increase lean protein intake and decrease carb portions as well as fruit juices, regular soda & desserts). Watch carbs and simple sugars. Check the blood sugar twice daily. Check the feet daily for skin breakdown and infection. Assessment & Plan (09/13/2022 5:13 PM CDT): Chronic, uncontrolled, worsening A1c - 9.0 % - counseled on diet and exercise - keep taking Metformin the same - increase Lantus to 18 units SQ daily - STOP Januvia - Start Trulicity 0.75 mg SQ weekly - work on your diet , pick healthy options, do mindful snacking Do not skip meals, try not to eat after 6 pm - increase physical activity as tolerated - daily foot care - recommend annual dilated eye exam - follow up in 3 months Encounters Date Type Department Care Team Description 02/05/2025 Telephone [facility] [address] [place] [phone] Sandra Berkowitz CMA 02/02/2025 10:00 AM CDT Office Visit [facility] Pul[facility] at [address] [place] [address] Melody Gee, SASCHA Hoarseness (Primary Dx); Hemoptysis; Stage 2 moderate COPD by GOLD classification (HCC) 12/10/2024 9:45 AM CDT Office Visit [facility] [address] [place] [phone] Ole Leroy, Chronic lymphoid leukemia, without mention of having achieved remission(204.10) (HCC) (Primary Dx); Pancytopenia; Idiopathic thrombocytopenia (HCC) 12/10/2024 9:15 AM CDT [facility] at [address] [address] Pancytopenia; Chronic lymphoid leukemia, without mention of having achieved remission(204.10) (HCC); Idiopathic thrombocytopenia (HCC) from Last 3 Months Immunizations Immunization Administration Dates Next Due Influenza, Quadrivalent, Split, Intramuscular ,12/19/2016 Influenza, Quadrivalent, Spl it, Preservative Free, Intramuscular 12/31/2019 Influenza, Unspecified 01/23/2021 Moderna SARS-CoV-2 Monovalent Vaccination (12+ Y RS) 07/15/2020,06/16/2020 Moderna Sars-cov-2 Monovalen t Booster Vaccination .25 Ml dose (12+ YRS) 03/27/2021 Pneumococcal Polysaccharide PPV23 06/27/2016,05/2011 Surgical History Surgery Date Site/Laterality Comments COLONOSCOPY Medical History Medical History Date Comments Leukemia (HCC) Diabetes mellitus Hypercholesteremia Hypertension COPD (chronic obstructive pulmonary disease) Stage 2 moderate COPD by GOLD classification (HC C) 12/25/2023 Pulmonary nodules 12/25/2023 Family History Medical History Relation Name Comments Diabetes Brother Leonard HTN Brother Leonard Cancer Father Aneurysm Mother Relation Name Status Comments Brother Leonard Father Mother Social History Tobacco Use Types Packs/Day Years Used Date Smoking Tobacco: Former Cigarettes 1.5 45 1 959 - 2004 Smokeless Tobacco: Never Tobacco Cessation:Counseling Given: Not Answered Alcohol Use Standard Drinks/Week Comments Not Currently 0 (1 standard drink = 0.6 oz pur e alcohol) [facility] Utilities Answer Date Recorded In the past 12 months has [employer], gas, oil, or water [employer] threatened to shut off services in your home? No 08/06/2024 Social Connection and Isolation Panel Answer Date Recorded In a typical week, how many times do you talk on the phone with family, friends, or neighbors? More than three times a week 08/06/2024 How often do you get togethe r with friends or relatives? More than three times a week 08/06/2024 How often do you attend chur ch or judaism services? Never 08/06/2024 Do you belong to any clubs o r organizations such as advent groups, unions, fraternal or athletic groups, or school groups? No 08/06/2024 How often do you attend meet ings of the clubs or organizations you belong to? Never 08/06/2024 Are you , , di vorced, , never , or living with a partner? 08/06/2024 AUDIT-C Answer Date Recorded Q1: How often do you have a drink containing alc ohol? Never 08/05/2024 Average Number of Drinks Not on file 025 Frequency of Binge Drinking Not on file 07/16 Overall Financial Resource Strain (CARDIA) Answe r Date Recorded How hard is it for you to pa y for the very basics like food, housing, medical care, and heating? Not hard at all 08/06/2024 Hunger Vital Sign Answer Date Recorded Within the past 12 months, y ou worried that your food would run out before you got the money to buy more. Never true 08/07/19 25 Within the past 12 months, t he food you bought just didn't last and you didn't have money to get more. Never true 08/06/2024 PRAPARE - Transportation Answer Date Re corded In the past 12 months, has l ack of transportation kept you from medical appointments or from getting medications? No 08/06/2024 Lack of Transportation (Non-Medical) Not on file 08/06/2024 Housing Stability Vital Sign Answer Aaron e Recorded In the last 12 months, was t here a time when you were not able to pay the mortgage or rent on time? No 08/06/2024 In the past 12 months, how m any times have you moved where you were living? 0 08/06/2024 At any time in the past 12 m [facility], were you homeless or living in a prison (including now)? No 08/06/2024 Personal Safety Answer Date Recorded Have you ever been in or are you currently in a harmful physical or emotional relationship or is someone making you feel afraid or unsafe? Denies 08/14/2024 Sex and Gender Information Value Date Recorded Sex Assigned at Not on file Legal Sex Male 2:07 AM DOMESTIC LAUNDRY WORKER Gender Identity Not on file Sexual Orientation Not on file Obstetrics History Last Filed Vital Signs Vital Sign Reading Time Taken Comments Blood Pressure 110/64 02/02/2025 9:47 AM CDT Pulse 64 02/02/2025 9:47 AM CDT Temperature 36.3 C (97.3 F) 02/02/2025 9:47 AM CDT Respiratory Rate 16 02/02/2025 9:47 AM CDT Oxygen Saturation 97% 02/02/2025 9:47 AM CDT Inhaled Oxygen Concentration - - Weight 89.8 kg (198 lb) 02/02/2025 9:47 AM CDT Height 177.8 cm (5' 10) 02/02/2025 9:47 AM CDT Body Mass Index 28.41 02/02/2025 9:47 AM CDT Plan of Treatment Health Maintenance Due Date Last Done Comments Depression Screening 1945 Hepatitis C Screening 1945 Hepatitis B Screening 10[birth year]26/1963 Abdominal Aortic Aneurysm (A AA) Screen 2010 Well Visit 65+ 2010 Pneumococcal vaccine 65+ (3 of 3 - PCV) 06/27/2017 06/27/2016, 06/23/2011, 04/17/2011 Zoster Vaccine (2 of 2) 03/27/2024 01/31/2024 Covid-19 Vaccine (7 - 2024-2 6 season) 2024 03/07/2022, 03/27/2021, 01/14/2021, Additional history exists Influenza Vaccine (#1) 2024 , 01/23/2021, 01/14/2021, Additional history exists Dilated Eye Exam 04/11/2025 04/11/2023 Hemoglobin A1C 05/08/2025 11/05/2024, 03/0 08/2024, 02/18/2024, Additional history exists Fall Risk Assessment 08/07/2025 08/07/2024 Albumin Creatinine Ratio, Urine 11/05/2025 11/05/2024, 02/18/2024, 12/14/2022 Foot Exam 11/05/2025 11/05/2024, 11/0 07/2023, 03/26/2023, Additional history exists Lipid Panel 11/05/2025 11/05/2024, 07/3 04/2023, 10/30/2022 eGFR 12/10/2025 12/10/2024, 05/2 11/2024, 08/13/2024, Additional history exists DTaP/Tdap/Td Vaccine (2 - Td or Tdap) 08/14/2027 08/13/2017 Procedures Procedure Name Priority Date/Time Associated Diagnosis Comments MANUAL DIFFERENTIAL Routine 12/10/2024 9 :16 AM CDT Pancytopenia Chronic lymphoid leukemia, without mention of having achieved remission(204.10) (HCC) Idiopathic thrombocytopenia (HCC) EGFR Routine 12/10/2024 9:16 AM CDT Pancytopenia Chronic lymphoid leukemia, without mention of having achieved remission(204.10) (HCC) Idiopathic thrombocytopenia (HCC) CBC WITH AUTO DIFFERENTIAL Routine 12/10/2024 9:16 AM CDT Pancytopenia Chronic lymphoid leukemia, without mention of having achieved remission(204.10) (HCC) Idiopathic thrombocytopenia (HCC) COMPREHENSIVE METABOLIC PANEL Routine 12/10/2024 9:16 AM CDT Pancytopenia Chronic lymphoid leukemia, without mention of having achieved remission(204.10) (HCC) Idiopathic thrombocytopenia (HCC) LACTATE DEHYDROGENASE Routine 12/10/2024 9:16 AM CDT Pancytopenia Chronic lymphoid leukemia, without mention of having achieved remission(204.10) (HCC) Idiopathic thrombocytopenia (HCC) ERYTHROCYTE SEDIMENTATION RATE Routine 12/10/2024 9:16 AM CDT Pancytopenia Chronic lymphoid leukemia, without mention of having achieved remission(204.10) (HCC) Idiopathic thrombocytopenia (HCC) IGG Routine 12/10/2024 9:16 AM CDT Pancytopenia Chronic lymphoid leukemia, without mention of having achieved remission(204.10) (HCC) Idiopathic thrombocytopenia (HCC) LIPID PANEL Routine 11/05/2024 12:00 PM CDT Hyperlipidemia associated with type 2 diabetes mellitus (HCC) Type 2 diabetes mellitus with stage 3b chronic kidney disease, with long-term current use of insulin (HCC) ALBUMIN CREATININE RATIO, URINE Routine 11/05/2024 12:00 PM CDT Type 2 diabetes mellitus with stage 3b chronic kidney disease, with long-term current use of insulin (HCC) POCT HEMOGLOBIN A1C Routine 11/05/2024 9 :09 AM CDT Type 2 diabetes mellitus with stage 3b chronic kidney disease, with long-term current use of insulin (HCC) DIABETES EYE EXAM Routine 04/11/2023 7:39 AM DOMESTIC LAUNDRY WORKER from Last 3 Months or Most Recently Relevant to Health Maintenance Results * (ABNORMAL) eGFR (12/10/2024 9:16 AM CDT) eGFR 35(L) >=60 mL/min/1. 73 m2 Comment: Interpretive Data Reference Interval Normal >/= 90 mL/min/1.73m2 Mildly decreased* 60 - 89 mL/min/1.73m2 Mildly to moderately decreased 45 - 59 mL/min/1.73m2 Moderately to severely decreased 30 - 44 mL/min/1.73m2 Severely decreased 15 - 29 mL/min/1.73m2 Kidney Failure < 15 mL/min/1.73m2 *Relative to young adult level Estimated glomerular filtration rate is determined by the 2020 CKD-EPI equation recommended by the National Kidney Foundation (A Unifying Approach to GFR Estimation: Recommendations of the NKF-ASK Task Force on Reassessing the Inclusion of Race in Diagnosing Kidney Disease, JASN 2020). The CKD-EPI equation should not be used for patients with unstable renal function and has not been validated in children and those over 70. Current interpretive data was last reviewed 2021. Testing performed by: [facility], [address] [place] [address]., [address] Blood 12/10/2024 9:16 AM CDT 12/10/2024 9:17 AM CDT us Stephany Clinton NP LAB BLOOD ORDERABLES Final Result [facility] Department [place] [address] * (ABNORMAL) CBC with auto differential (12/10/2024 9:16 AM CDT) WBC 11.76(H) 3.80 - 9.90 K/cumm Comment:Testing performed by : [address], [address] Hgb 14.2 13.0 - 17.5 g/dL [facility] Comment:Testing performed by : [address] [address] Hct 43.4 38.9 - 50.3 % [facility] Comment:Testing performed by : [address] [address] Plt 102(L) 150 - 400 K/cumm [facility] Comment:Testing performed by : [address] [address] MPV 10.8 9.1 - 12.3 fL [facility] Comment:Testing performed by : [address], [address] RBC 4.87 4.30 - 5.80 M/cumm [facility] Comment:Testing performed by : [address] [address] MCV 89.1 81.3 - 96.4 fL [facility] Comment:Testing performed by : [address], [address] MCH 29.2 27.1 - 33.3 pg [facility] Comment:Testing performed by : [address] [address] MCHC 32.7 32.3 - 35.7 g/dL [facility] Comment:Testing performed by : [address], [address] RDW CV 13.4 11.1 - 14.9 % [facility] Comment:Testing performed by : [address], [address] RDW SD 43.8 35.7 - 48.1 fL [facility] Comment:Testing performed by : [address] [address] NRBC abs 0.00 0.00 - 0.01 K/cumm [facility] Comment:Testing performed by : [address] [address] ANC Prelim 4.56 1.50 - 6.50 K/cumm [facility] Comment: Interpretive Data The rapid ANC is a preliminary automated count and may vary from the final ANC (Neut Abs) reported in the WBC differential that follows. Current interpretive data was last revised 2024. Testing performed by: [address] [address] Blood 12/10/2024 9:16 AM CDT 12/10/2024 9:17 AM CDT Stephany Clinton NP LAB BLOOD ORDERABLES Edited Result - Final [facility] Department [place] [address] * (ABNORMAL) Manual Differential (12/10/2024 9:16 AM CDT) Differential Manual Comment:Testing performed by : [address] [address] Cells Counted 100 [facility] Comment:Testing performed by : [address] [address] Neutrophil abs 5.29 1.50 - 6.50 K/cumm [facility] Comment:Testing performed by : [address] [address] Lymphocyte abs 5.76(H) 0.80 - 3.30 K/cumm [facility] Comment:Testing performed by : [address] [address] Monocyte abs 0.47 0.20 - 0.80 K/cumm [facility] Comment:Testing performed by : [address] [address] Eosinophil abs 0.24 0.00 - 0.50 K/cumm [facility] Comment:Testing performed by : [address] [address] Neutrophil pct 45.0 % [facility] Comment: Interpretive Data Percent cell count reference ranges are not reported, since discordance with absolute values may lead to misinterpretation of CBC data. Current Interpretive Data was last revised on 2017. Testing performed by: [address] [address] Lymphocyte pct 49.0 % [facility] Comment: Interpretive Data Percent cell count reference ranges are not reported, since discordance with absolute values may lead to misinterpretation of CBC data. Current Interpretive Data was last revised on 2017. Testing performed by: [address] [address] Monocyte pct 4.0 % [facility] Comment: Interpretive Data Percent cell count reference ranges are not reported, since discordance with absolute values may lead to misinterpretation of CBC data. Current Interpretive Data was last revised on 2017. Testing performed by: [address] [address] Eosinophil pct 2.0 % [facility] Comment: Interpretive Data Percent cell count reference ranges are not reported, since discordance with absolute values may lead to misinterpretation of CBC data. Current Interpretive Data was last revised on 2017. Testing performed by: [address] [address] Blood 12/10/2024 9:16 AM CDT 12/10/2024 9:17 AM CDT Stephany Clinton NP LAB BLOOD ORDERABLES Final Result [facility] [address] [facility] Department [place] [address] * Erythrocyte sedimentation rate (12/10/2024 9:16 AM CDT) Erythrocyte sedimentation rate 5 1 - 20 mm/hr Comment:Testing performed by : [address] [address] Blood 12/10/2024 9:16 AM CDT 12/10/2024 9:43 AM CDT Stephany Clinton NP LAB BLOOD ORDERABLES Final Result [address] [address] * Lactate dehydrogenase (LD) (12/10/2024 9:16 AM CDT) [facility] Lactate dehydrogenase (LDH) 120 100 - 250 Units/L Comment:Testing performed by : [address] [address] Blood 12/10/2024 9:16 AM CDT 12/10/2024 9:17 AM CDT Stephany Clinton REFINERY OPERATOR REFORMING UNIT LAB BLOOD ORDERABLES Final Result Performing Organization Address [facility] Co de Phone Number [address] [address] * IgG (12/10/2024 9:16 AM CDT) [facility] Immunoglobulin G 897 700 - 1,600 mg/dL Blood 12/10/2024 9:16 AM CDT 12/10/2024 7:14 PM CDT Stephany Clinton REFINERY OPERATOR REFORMING UNIT LAB BLOOD ORDERABLES Final Result Performing Organization Address [facility] Co de Phone Number [address] [address] * (ABNORMAL) Comprehensive metabolic panel (12/10/2024 9:16 AM CDT) [facility] Sodium 138 135 - 145 mmol/L Comment:Testing performed by : [address] [address] Potassium, pl 4.4 3.3 - 4.9 mmol/L [facility] Comment:Testing performed by : [address] [address] Chloride 104 97 - 110 mmol/L [facility] Comment:Testing performed by : [address] [address] CO2 24 22 - 32 mmol/L [facility] Comment:Testing performed by : [address] [address] Anion gap 10 2 - 15 mmol/L [facility] Comment:Testing performed by : [address] [address] BUN 26(H) 6 - 25 mg/dL [facility] Comment:Testing performed by : [address] [address] Creatinine 1.90(H) 0.80 - 1.30 mg/dL [facility] Comment:Testing performed by : [address] [address] Glucose 219(H) 70 - 199 mg/dL [facility] Comment: Interpretive Data Fasting glucose >/= 126 mg/dl is diagnostic for diabetes. Fasting is defined as no caloric intake for at least 8 hours. Fasting glucose between 100 mg/dl to 125 mg/dl is diagnostic of prediabetes. In a patient with classic symptoms of hyperglycemia or hyperglycemic crisis, a random glucose >/= 200 mg/dl is diagnostic for diabetes. In the absence of unequivocal hyperglycemia, results should be confirmed by repeat testing. The classification and Diagnosis of Diabetes Diabetes Care 2021; 46: S19-S40. Current interpretive data was last revised 2022. Testing performed by: [address] [address] Calcium 9.9 8.5 - 10.3 mg/dL [facility] Comment:Testing performed by : [address] [address] Bilirubin, total 0.6 0.1 - 1.2 mg/dL [facility] Comment:Testing performed by : [address] [address] Protein, pl 6.5 6.5 - 8.5 g/dL [facility] Comment:Testing performed by : [address] [address] Albumin 4.2 3.5 - 5.0 g/dL [facility] Comment:Testing performed by : [address] [address] Alk phos 98 40 - 130 Units/L [facility] Comment:Testing performed by : [facility], [address] [place] [address]., [address] ALT 22 7 - 55 Units/L [facility] Comment:Testing performed by : [address] [address] AST 24 10 - 50 Units/L [facility] Comment:Testing performed by : [facility], [address] [place] [address]., [address] Blood 12/10/2024 9:16 AM CDT 12/10/2024 9:17 AM CDT Stephany Clinton REFINERY OPERATOR REFORMING UNIT LAB BLOOD ORDERABLES Final Result Performing Organization Address City/[facility]/ZIP Co de Phone Number [facility] [address] [facility] Department [place] [address] * (ABNORMAL) Albumin Creatinine Ratio, Urine (11/05/2024 12:00 PM CDT) Albumin Ur 25.5 mg/L Comment: Interpretive Data No reference range established. Current interpretive data was last revised 2018. Creatinine Ur 65.4 mg/dL [facility] Comment: Interpretive Data No reference range established. Current interpretive data was last revised 2018. Albumin Creatinine Ratio, Ur 39(H) 1 - 29 mg/g [facility] Urine 11/05/2024 12:0 0 PM CDT 11/05/2024 8:37 PM CDT us Marylou Felipe REFINERY OPERATOR REFORMING UNIT LAB URINE ORDERABLES Ileana l Result [facility] [address] Department [place] [address] * (ABNORMAL) Lipid panel (11/05/2024 12:00 PM CDT) Cholesterol 92 30 - 199 mg/dL Comment: Interpretive Data Ages < or = 19 years Acceptable: <170 mg/dL Borderline high: 170-199 mg/dL High: >or= 200 mg/dL Ages > or = 20 years Desirable: <200 mg/dL Borderline high: 200-239 mg/dL High: >or= 240 mg/dL Literature References: 1. Expert Panel on Integrated Guidelines for Cardiovascular Health and Risk Reduction in Children and Adolescents. Pediatrics 2011;128:S213 2. NCEP Expert Panel. Circulation 2004;110:227 Current Interpretive Data was last revised on 2017. Triglycerides 200(H) <=149 mg/dL [facility] Comment: Interpretive Data Ages < or = 9 years Acceptable: <75 mg/dL Borderline high: 75-99 mg/dL High: >or= 100 mg/dL Ages 10 to 20 years Acceptable: <90 mg/dL Borderline high: 90-129 mg/dL High: >or= 130 mg/dL Ages > or = 20 years Desirable: <150 mg/dL Borderline high: 150-199 mg/dL High: 200-499 mg/dL Very high: >or= 499 mg/dL Literature References: 1. Expert Panel on Integrated Guidelines for Cardiovascular Health and Risk Reduction in Children and Adolescents. Pediatrics 2011;128:S213 2. NCEP Expert Panel. Circulation 2004;110:227 Current Interpretive Data was last revised on 2017. HDL 30(L) >=40 mg/dL [facility] Comment: Interpretive Data Ages < or = 19 years Acceptable: >45 mg/dL Borderline low: 40-45 mg/dL Low: <40 mg/dL Ages > or = 20 years Desirable: >or= 60 mg/dL Low: <40 mg/dL Literature References: 1. Expert Panel on Integrated Guidelines for Cardiovascular Health and Risk Reduction in Children and Adolescents. Pediatrics 2011;128:S213 2. NCEP Expert Panel. Circulation 2004;110:227 Current Interpretive Data was last revised on 2017. LDL, calculated 30 <=129 mg/dL [facility] Comment: Interpretive Data Ages < or = 19 years Acceptable: <110 mg/dL Borderline high: 110-129 mg/dL High: >or= 130 mg/dL Ages > or = 20 years Optimal: <100 mg/dL Near optimal: 100-129 mg/dL Borderline high: 130-159 mg/dL High: >160 mg/dL Calculated using the Trejo LDL-C estimating equation. This equation was implemented on 2023. Prior to this date LDL-C was estimated using the Friedewald equation. Literature References: 1. Expert Panel on Integrated Guidelines for Cardiovascular Health and Risk Reduction in Children and Adolescents. Pediatrics 2011;128:S213 2. NCEP Expert Panel. Circulation 2004;110:227 3. Neil M et al. CAIT Cardiol. 2020 August 14;5(5):540-548. doi: 10.1001/jamacardio.2020.0013 Current Interpretive Data was last revised on 2023. Non-HDL Cholesterol 62 mg/dL [facility]ON Comment: Interpretive Data Ages < or = 19 years Acceptable: <120 mg/dL Borderline high: 120-144 mg/dL High: >145 mg/dL Ages > or = 20 years When triglycerides are >200 mg/dL, Non-HDL cholesterol is a secondary target of therapy with treatment goals that are 30 mg/dL greater than the LDL cholesterol target. Literature References: 1. Expert Panel on Integrated Guidelines for Cardiovascular Health and Risk Reduction in Children and Adolescents. Pediatrics 2011;128:S213 2. NCEP Expert Panel. Circulation 2004;110:227 Current Interpretive Data was last revised on 2017. Chol/HDL ratio 3 [facility] Blood 11/05/2024 12:0 0 PM CDT 11/05/2024 8:37 PM CDT us Marylou Felipe NP LAB BLOOD ORDERABLES Ileana l Result [facility] [address] Department [place] [address] * (ABNORMAL) POCT hemoglobin A1c (11/05/2024 9:09 AM CDT) Hemoglobin A1C, POC 7.4(A) 4.0 - 5.6 % Capillary blood 11/05/2024 9 :09 AM CDT us Marylou Felipe NP POINT OF CARE TEST ORDERA BLES Final Result * DIABETES EYE EXAM (04/11/2023 7:39 AM DOMESTIC LAUNDRY WORKER) us Historical Provider HEALTH MAINTENANCE Final Result from Last 3 Months or Most Recently Relevant to Health Maintenance Insurance Advance Directives For more information, please contact: [phone] * Full Code (Latest Code Status on File) Date Activated Date Inactivated Comments 08/14/2024 9:24 AM 08/15/2024 4:47 AM * Full Code Date Activated Date Inactivated Comments 08/05/2024 7:47 PM 08/07/2024 4:35 PM Care Teams Tanker Driver Relationship Specialty Start Date End Date Bhavesh Marroquin MD [address] [address] PCP - General Internal Medicine 09/05/22 Melody Gee NP Nurse Practitioner Nurse Practitioner 09/10/20 [place] [address] [facility] [address] [address] Consulting Physician Nephrology 09/05/22 Ole Leroy DO [address] [place] [address] MEDICAL ONCOLOGY, [facility] [address] [place] [address] Medical Oncologist/Software Development Project Manager Hematology and Oncology 02/19/23
--- OUTSIDE RECORDS SUMMARY | 2025-02-09 16:19 | XMS_ITS ---
Author Organization [facility] Address [address] [place] [address] Care Team Providers Care Boatswain Mate Name Role Phone Melody Gee NP Unavailable [phone] Bhavesh Marroquin MD Primary Care Provider Kamran Jacobson MD Unavailable [phone] Ole Leroy DO Unavailable [phone] Active Problems Problem Noted Date Diagnosed Date [...] care. Assessment & Plan (03/12/2024 1:24 PM FLOODPLAIN MANAGER): Continue Spiriva Handihaler once daily Continue Dulera [...] therapy Assessment & Plan (03/12/2024 1:23 PM FLOODPLAIN MANAGER): He has had ENT evaluation and treatment [...] 12/25/2023 Assessment & Plan (03/12/2024 1:25 PM FLOODPLAIN MANAGER): Multiple tree-in-bud opacities noted on CT chest [...] Chronic problem. Managed by Dr Jacobson in [place]. Sees him every 2-3 months. Has appt 11/2024. Has restarted him on Jardiance (stopped in past d/t yeast infections). Aware to watch for yeast infection. Nephropathy: On LANDON-I / ARB s : Yes. Losartan 100mg. Last MA: 02/18/24 (34) Last creat/GFR: 09/10/24 GFR=51, CR=1.40. Assessment & Plan (06/18/2024 10:05 AM FLOODPLAIN MANAGER): Chronic problem. Managed by Dr Jacobson in [place]. Has appt 07/2024 he believes. Sees him every 3 months. Nephropathy: On LANDON-I / ARB s : Yes. Losartan 50mg. Last MA: 02/18/24 (34) Last creat/GFR: 05/14/24 GFR=51, CR=1.40. Assessment & Plan (08/23/2023 3:34 PM CDT): Chronic problem. Managed by Dr Jacobson in [place]. Has appt 09/2023 he believes. Sees him every 3 months. Last creat/GFR: 08/20/23 GFR=52, CR=1.40. Assessment & Plan (03/26/2023 1:17 PM FLOODPLAIN MANAGER): On [facility] Assessment & Plan (12/14/2022 2:07 PM CDT): Chronic problem. Managed by Dr Jacobson in [place]. Chronic lymphoid leukemia, w ithout mention of having achieved remission(204.10) 12/13/2017 Hyperlipidemia associated with type 2 diabetes m adenike 08/29/2010 Overview (07/27/2017): Description: Hyperlipidemia Assessment & Plan (11/05/2024 8:52 AM CDT): Chronic problem. Controlled on current Rosuvatatin 40mg. Last lipid panel: 11/14/23 LDL=47, TG=75. Will update labs. Does not mychart. Verified phone #/address to contact re: results. Assessment & Plan (06/18/2024 9:55 AM FLOODPLAIN MANAGER): Chronic problem. Controlled on current Rosuvatatin 40mg. Last lipid panel: 11/14/23 LDL=47, TG=75. Assessment & Plan (02/20/2024 10:21 AM FLOODPLAIN MANAGER): Continue statin therapy Assessment & Plan (08/23/2023 3:26 PM CDT): Chronic problem. Controlled on current Rosuvatatin 40mg. Last lipid panel: 10/30/22 LDL=40, HI=216. Assessment & Plan (03/26/2023 1:16 PM FLOODPLAIN MANAGER): Chronic, stable Continue current statin therapy Tolerating well Assessment & Plan (12/14/2022 2:02 PM CDT): Chronic problem. Controlled on current Rosuvatatin 40mg. Last lipid panel: 10/30/22 LDL=40, CF=000. Assessment & Plan (09/13/2022 5:14 PM CDT): Chronic, stable Continue current statin therapy Tolerating well Hypertension associated with diabetes 08/29/2010 Overview (07/27/2017): Description: Hypertension Assessment & Plan (11/05/2024 8:53 AM CDT): Chronic problem. Controlled with current Carvedilol 12.5mg bid, losartan 100mg daily Assessment & Plan (06/18/2024 9:55 AM FLOODPLAIN MANAGER): Chronic problem. Controlled with current Carvedilol 12.5mg bid, losartan 100mg daily Assessment & Plan (02/20/2024 10:23 AM FLOODPLAIN MANAGER): Chronic, well controlled Continue losartan Assessment & Plan (08/23/2023 3:26 PM CDT): Chronic problem. Controlled with current Carvedilol 12.5mg bid, losartan 50mg daily, amlodipine 5mg daily. Assessment & Plan (03/26/2023 1:17 PM FLOODPLAIN MANAGER): Chronic, well controlled Continue amlodipine, losartan Assessment [...] UTD DM eye exam (04/11/23 no DMR [facility]). 2023 at [facility], letter sent to get copy of report. [...] infection. Assessment & Plan (06/18/2024 10:07 AM FLOODPLAIN MANAGER): Chronic problem. A1c increased from 8.3% 02/2024 [...] UTD DM eye exam (03/2023). 2023 at [facility], letter sent to get copy of report. [...] infection. Assessment & Plan (02/20/2024 10:23 AM FLOODPLAIN MANAGER): Chronic, uncontrolled, worsening Hemoglobin A1c 8.3%, goal [...] infection. Assessment & Plan (03/26/2023 1:18 PM FLOODPLAIN MANAGER): Chronic, significant improvement in control A1c - [...] units daily DM eye exam 2021 at [facility] in [place]--letter sent to get report. Will update MA/Cr [...] exam - follow up in 3 months Current Treatment and Therapy Plans Zanubrutinib PO 28 Day Cycles - MCL* Plan Start Date:12/19/2023 Plan Provider:Ole Leroy DO Linked Problems Chronic lymphoid leukemia, w ithout mention of having achieved remission(204.10) (HCC) Treatment Medications Current Day (Day 1 , Cycle 3 - Planned for 04/24/2024) Next Day (Day 1, Cycle 4 - Planned for 05/22/2024) zanubrutinib (BRUKINSA) zanubrutinib (BR UKINSA) 80 mg capsule zanubrutinib (BRUKINSA) 80 mg capsule Other Current Plans Immune Globulin (GAMUNEX) - 10% (LEONARD PREFERRED)* Plan Start Date:01/24/2024 Plan Provider:Ole Leroy DO Linked Problems Pancytopenia Treatment Medications No medications scheduled. IV Maintenance Therapy Plan* Plan Start Date:01/16/2024 Plan Provider:Ole Leroy DO Linked Problems Encounter for management of implanted device Treatment Medications No medications scheduled. Past Treatment and Therapy Plans No past plan information found.
--- OUTSIDE RECORDS SUMMARY | 2025-02-09 16:19 | XMS_ITS | Encounter Summary ---
Author Organization [facility] Address [address] [place] [address] Care Team Providers Care Sales Representative Uniforms Name Role Phone Unavailable Primary Care Provider Unavailabl e Encounter Details Date Type Department Care Team (Late st Contact Info) Description 01/29/[address] [facility] Conversion Md, Generic Conversion, Social History Tobacco Use Types Packs/Day Years Used Date Smoking Tobacco: Never Assessed Sex and Gender Information Value Date Recorded Sex Assigned at Not on file Legal Sex Male 5:01 PM CDT Gender Identity Not on file Sexual Orientation Not on file documented as of this encounter Plan of Treatment Not on file documented as of this encounter Visit Diagnoses Not on filedocumented in this encounter
== END 2025-02-09 14:36 | disposition home or self-care (01) ==
PROVIDERS: PCP Internal Medicine Infectious Disease; Visit Provider Otolaryngology
DX: J38.3 Other diseases of vocal cords (principal)
CPT/HCPCS: 70491; Q9967

== ENCOUNTER 2025-04-02 08:43 | Outpatient (CLI) | payer OTHER, SELFPAY ==
--- OUTSIDE RECORDS SUMMARY | 2024-01-25 07:45 | XMS_ITS ---
Author Organization [facility] Address [address] [place] [address] Care Team Providers Care Wad Blanking Press Adjuster Name Role Phone Jacobson Kamran Unavailable [phone] Social History Sex Assigned At : Social History Observation Description Sex Assigned At Male Encounters Encounter Location Date Provider Diagnosis [place] [facility] [address] [facility] [address] [place] [address] 01/25/2024 Kamran Jacobson Chronic kidney disease, stage 3a N18.31 ; Essential (primary) hypertension I10 ; Hypo-osmolality and hyponatremia E87.1 ; Type 2 diabetes mellitus with hyperglycemia E11.65 and Cyst of kidney, acquired N28.1 Assessments Encounter Date Diagnosis (ICD Code) Assessment Notes Treatment Notes Treatment Clinical Notes Section Notes 01/25/2024 Chronic kidney disease, stage 3a (ICD-10 - N18.31) 01/25/2024 Essential (primary) hypertension (ICD-10 - I10) 01/25/2024 Hypo-osmolality and hyponatremia (ICD-10 - E87.1) 01/25/2024 Type 2 diabetes mellitus with hyperglycemia (ICD-10 - E11.65) 01/25/2024 Cyst of kidney, acquired (ICD-10 - N28.1) Plan Of Treatment Next Appt Details Provider Name:Kamran Kavon , 04/22/2025 03:00:00 PM, [address]43 [facility], [facility], [place], [address], Progress Notes * CAROL DUNCANDOB: 6 (79 yo M)Acc No.[id number]:01/25/2024 Progress Notes Patient: CAROL MIRANDA Provider: Malini VELÁSQUEZ MD, F.A.C.P, F.A.S.N. :1945 A ge:78 Y S ex:Male Date:01/25/2024 Address:[place] [address] Subjective: * Chief Complaints: * * Medical History: Objective: * Vitals: Assessment: * Assessment: 1. C hronic kidney disease, stage 3a - N18.31 (Primary) 2 . E ssential (primary) hypertension - I10 3 . H ypo-osmolality and hyponatremia - E87.1 ? 4 . T ype 2 diabetes mellitus with hyperglycemia - E11.65 5 . C yst of kidney, acquired - N28.1 Plan: * Treatment: * Billing Information: * Visit Code: 50278 Office Visit, Est Pt., Level 5. * Procedure Codes: * Electronic signature of Brian Jacobson MD on 04/02/2025 at 09:02 AM HORSE FARM MANAGER Sign off status: Pending * Provider: Malini VELÁSQUEZ MD, F.A.C.P, F.A.S.N. Date: Generated for Printing/Faxing/eTransmitting on: 06/03/2024 09:02 AM HORSE FARM MANAGER
--- OUTSIDE RECORDS SUMMARY | 2024-03-26 09:15 | XMS_ITS ---
Author Organization [facility] Address [address] [place] [address] Care Team Providers Care Spark Plug Tester Name Role Phone Jacobson Kamran Unavailable [phone] Social History Sex Assigned At : Social History Observation Description Sex Assigned At Male Encounters Encounter Location Date Provider Diagnosis [place] [facility] 2043 [place] [address] 03/26/2024 Kamran Jacobson Plan Of Treatment Next Appt Details Provider Name:Kamran Jacobson , 04/22/2025 03:00:00 PM, [address], [facility], Progress Notes * CAROL DUNCANDOB: 6 (79 yo M)Acc No.[id number]:03/26/2024 Progress Notes Patient: CAROL MIRANDA Provider: Malini VELÁSQUEZ MD, Esther.Jostin.C.P, F.A.S.N. :1945 A ge:78 Y S ex:Male Date:03/26/2024 Address:[address] [place] [address] Subjective: * Chief Complaints: * * Medical History: Objective: * Vitals: Assessment: Plan: * Treatment: * Billing Information: * Visit Code: * Procedure Codes: * Electronic signature of Brian Jacobson MD on 04/02/2025 at 09:03 AM THREAD MILLING MACHINE SET UP OPERATOR Sign off status: Pending * Provider: Malini VELÁSQUEZ MD, Esther.Jostin.C.P, F.A.S.N. Date: 05/27/2023 Generated for Printing/Faxing/eTransmitting on: 06/03/2024 09:03 AM THREAD MILLING MACHINE SET UP OPERATOR
--- OUTSIDE RECORDS SUMMARY | 2024-04-25 06:45 | XMS_ITS ---
Author Organization [facility] Address [address] [place] [address] Care Team Providers Care Veneer Marker Name Role Phone Kavon Kamran Unavailable [phone] Social History Sex Assigned At : Social History Observation Description Sex Assigned At Male Encounters Encounter Location Date Provider Diagnosis [facility] [place] [facility] [address] [place] [address] 04/25/2024 Kamran Jacobson Plan Of Treatment Next Appt Details Provider Name:Kamran Singh , 04/22/2025 03:00:00 PM, [address], [facility], Progress Notes * CAROL DUNCANDOB: 6 (79 yo M)Acc No.[id number]:04/25/2024 Patient: CAROL MIRANDA Provider: Malini VELÁSQUEZ MD, F.A.C.P, F.A.S.N. :1945 A ge:78 Y S ex:Male Date:04/25/2024 Address:[address] [place] [address] Subjective: * Chief Complaints: Objective: Assessment: Plan: * Billing Information: * Visit Code: * Procedure Codes: * Electronic signature of rBian Jacobson MD on 04/02/2025 at 09:01 AM PACKAGING MATERIALS INSPECTOR Sign off status: Pending * Provider: Malini VELÁSQUEZ MD, F.A.C.P, F.A.S.N. Date: 0 04/25/2024 Generated for Printing/Faxing/eTransmitting on: 06/03/2024 09:01 AM PACKAGING MATERIALS INSPECTOR
--- OUTSIDE RECORDS SUMMARY | 2024-05-14 09:30 | XMS_ITS ---
Author Organization [facility] Office Address 1400 [facility] 61 [facility] G30 [place] [address] Care Team Providers Care Assistant Auto Center Manager Name Role Phone JacobsonBrittaniKamran Unavailable [phone] Medications Medication SIG (Take, Route, Frequency, Duration) Notes Start Date End Date Status Calcitriol 0.25 MCG TAKE 1 CAPSULE BY MO UTH EVERY DAY; Duration: 90 Active Vitamin D (Ergocalciferol) 1.25 MG (09842 UT) TAKE 1 CAPSULE BY MOUTH 1 TIME A WEEK; Duration: 91 Active Ciprofloxacin HCl 500 MG TAKE 1 TABLET B Y MOUTH EVERY 12 HOURS; Duration: 10 Active Social History Sex Assigned At : Social History Observation Description Sex Assigned At Male Problems Problem Type SNOMED Code ICD Code Onset Dates Problem Status W/U Status Risk Notes Problem Syndrome of inappropriate secretion of antidiuretic hormone (09142050) 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 15 [place] [address] 05/14/2024 Kamran Jacobson Chronic kidney disease, stage 3a N18.31 ; Type 2 diabetes mellitus with hyperglycemia E11.65 ; Essential (primary) hypertension I10 ; Chronic obstructive pulmonary disease with (acute) exacerbation J44.1 ; Cyst of kidney, acquired N28.1 and 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 Assessments Encounter Date Diagnosis (ICD Code) Assessment Notes Treatment Notes Treatment Clinical Notes Section Notes 05/14/2024 Chronic kidney disease, stage 3a (ICD-10 - N18.31) 05/14/2024 Type 2 diabetes mellitus with hyperglycemia (ICD-10 - E11.65) 05/14/2024 Essential (primary) hypertension (ICD-10 - I10) 05/14/2024 Chronic obstructive pulmonary disease with (acute) exacerbation (ICD-10 - J44.1) 05/14/2024 Cyst of kidney, acquired (ICD-10 - N28.1) 05/14/2024 Syndrome of inappropriate secretion of antidiuretic hormone (ICD-10 - E22.2) Plan Of Treatment Next Appt Details Provider Name:Kamran Jacobson , 04/22/2025 03:00:00 PM, [address], [facility] 15, [place], [address], Progress Notes * CAROL DUNCANDOB: 6 (79 yo M)Acc No.[id number]:05/14/2024 Progress Notes Patient: CAROL MIRANDA Provider: Malini VELÁSQUEZ MD, F.A.C.P, F.A.S.N. :1945 A ge:78 Y S ex:Male Date:05/14/2024 Address:[address] [place] [address] Subjective: * Chief Complaints: * * Medical History: * Medications: T aking Ciprofloxacin HCl 500 MG Tablet TAKE 1 TABLET BY MOUTH EVERY 12 HOURS , Taking Vitamin D (Ergocalciferol) 1.25 MG (47469 UT) Capsule TAKE 1 CAPSULE BY MOUTH 1 TIME A WEEK , Taking Calcitriol 0.25 MCG Capsule TAKE 1 CAPSULE BY MOUTH EVERY DAY Objective: * Vitals: Assessment: * Assessment: 1. C hronic kidney disease, stage 3a - N18.31 (Primary) 2 . T ype 2 diabetes mellitus with hyperglycemia - E11.65 3 . E ssential (primary) hypertension - I10 4 . C hronic obstructive pulmonary disease with (acute) exacerbation - J44.1 5. C yst of kidney, acquired - N28.1 6 . S yndrome of inappropriate secretion of antidiuretic hormone - E22.2 Plan: * Treatment: * Billing Information: * Visit Code: 85454 Office Visit, Est Pt., Level 4. * Procedure Codes: * Electronic signature of Brian Jacobson MD on 04/02/2025 at 09:04 AM PLATING INSPECTOR Sign off status: Pending * Provider: Malini VELÁSQUEZ MD, F.Jostin.C.P, F.A.S.N. Date: 0 05/14/2024 Generated for Printing/Faxing/eTransmitting on: 1 06/03/2024 09:04 AM PLATING INSPECTOR
--- OUTSIDE RECORDS SUMMARY | 2024-07-09 08:30 | XMS_ITS ---
Author Organization [facility] Office Address [address] [place] [address] [place] [place] [address] Care Team Providers Care Electrical Sign Wirer Name Role Phone Kavon Kamran Unavailable [phone] Social History Sex Assigned At : Social History Observation Description Sex Assigned At Male Problems Problem Type SNOMED Code ICD Code Onset Dates Problem Status W/U Status Risk Notes Problem Hypo-osmolality and or hyponatremia (788895368) Hypo-osmolality and hyponatremia (E87.1) Active confirmed Problem Acute bronchitis (93266688) Acute bronchitis, unspecified (J20.9) Active confirmed Encounters Encounter Location Date Provider Diagnosis [place] Office 2043 [facility] 15 [place] [address] 07/09/2024 Kamran Jacobson Chronic kidney disease, stage [...] 03:00:00 PM, [address], [address], [place], [address], Progress Notes * CAROL DUNCANDOB: 6 (79 yo M)Acc No.[id number]:07/09/2024 Progress Notes Patient: CAROL MIRANDA Provider: Malini VELÁSQUEZ MD, F.A.C.P, F.A.S.N. :1945 A ge:78 Y S ex:Male Date:07/09/2024 Address:[address] [place] [address] Subjective: * Chief Complaints: * * Medical [...] Treatment: * Billing Information: * Visit Code: 91371 Office Visit, Est Pt., Level 4. * Procedure Codes: * Electronic signature of Brian Jacobson MD on 04/02/2025 at 09:04 AM PRN PHYSICAL THERAPIST Sign off status: Pending * Provider: Malini VELÁSQUEZ MD, F.Jostin.C.P, F.A.S.N. Date: 0 07/09/2024 Generated for Printing/Faxing/eTransmitting on: 1 06/03/2024 09:04 AM PRN PHYSICAL THERAPIST
--- OUTSIDE RECORDS SUMMARY | 2024-10-08 08:30 | XMS_ITS ---
Author Organization [facility] Office Address [address] [place] [address] Care Team Providers Care Digester Cook Name Role Phone Kavon Kamran Unavailable [phone] Social History Sex Assigned At : Social History Observation Description Sex Assigned At Male Problems Problem Type SNOMED Code ICD Code Onset Dates Problem Status W/U Status Risk Notes Problem Chronic kidney disease stage 3B (disorder) (247547879) Chronic kidney disease, stage 3b (N18.32) Active confirmed Encounters Encounter Location Date Provider Diagnosis [place] Office 2043 [facility] 15 [place] [address] 10/08/2024 Kamran Jacobson Chronic kidney disease, stage [...] , 04/22/2025 03:00:00 PM, [address] [place], [facility] 15, [place], [address], Progress Notes * CAROL DUNCANDOB: 6 (79 yo M)Acc No.[id number]:10/08/2024 Progress Notes Patient: CAROL MIRANDA Provider: Malini VELÁSQUEZ MD, F.Jostin.C.P, F.A.S.N. :1945 A ge:78 Y S ex:Male Date:10/08/2024 Address:[facility] [place] Subjective: * Chief Complaints: * * Medical [...] Treatment: * Billing Information: * Visit Code: 83602 Office Visit, Est Pt., Level 4. * Procedure Codes: * Electronic signature of Brian Jacobson MD on 04/02/2025 at 09:05 AM GLACIOLOGIST Sign off status: Pending * Provider: Malini VELÁSQUEZ MD, F.Jostin.C.P, F.A.S.N. Date: 0 10/08/2024 Generated for Printing/Faxing/eTransmitting on: 06/03/2024 09:05 AM GLACIOLOGIST
--- OUTSIDE RECORDS SUMMARY | 2024-12-03 09:00 | XMS_ITS ---
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 :1945 A ge:79 Y S ex:Male Date:12/03/2024 Address:[address] [place] [address] Subjective: * Chief Complaints: Objective: Assessment: * [...] Plan: * Billing Information: * Visit Code: 93932 Office Visit, Est Pt., Level 4. * Procedure Codes: * Electronic signature of Brian Jacobson MD on 04/02/2025 at 09:05 AM ELECTRICAL SYSTEMS DESIGNER Sign off status: Pending * Provider: Malini VELÁSQUEZ MD, F.A.C.P, F.A.S.N. Date: 0 12/03/2024 Generated for Printing/Faxing/eTransmitting on: 1 06/03/2024 09:05 AM ELECTRICAL SYSTEMS DESIGNER
--- OUTSIDE RECORDS SUMMARY | 2025-01-21 13:15 | XMS_ITS ---
Author Organization [facility] Address [address] [place] [address] Care Team Providers Care Ent Consultant Name Role Phone Kamran Jacobson Unavailable [phone] Social History Sex Assigned At : Social History Observation Description Sex Assigned At Male Encounters Encounter Location Date Provider Diagnosis [facility] [address] [place] [address] 01/21/2025 Malini Jacobson Plan Of Treatment Next Appt Details Provider Name:Kamran Jacobson , 04/22/2025 03:00:00 PM, 2043 [facility] [address], [address], Progress Notes * CAROL DUNCANDOB: 6 (79 yo M)Acc No.[id number]:01/21/2025 Progress Notes Patient: CAROL MIRANDA Provider: Malini VELÁSQUEZ MD, F.A.C.P, F.A.S.N. :1945 A ge:79 Y S ex:Male Date:01/21/2025 Address:[address] [place] [address] Subjective: * Chief Complaints: Objective: Assessment: Plan: * Billing Information: * Visit Code: * Procedure Codes: * Electronic signature of Brian Jacobson MD on 04/02/2025 at 09:05 AM TRACK FITTER Sign off status: Pending * Provider: Malini VELÁSQUEZ MD, F.A.C.P, F.A.S.N. Date: Generated for Printing/Faxing/eTransmitting on: 06/03/2024 09:05 AM TRACK FITTER
--- OUTSIDE RECORDS SUMMARY | 2025-01-28 12:45 | XMS_ITS ---
Author Organization [facility] Address [address] [place] [address] Care Team Providers Care Slot Attendant Name Role Phone Jacobson Kamran Unavailable [phone] Social History Sex Assigned At : Social History Observation Description Sex Assigned At Male Encounters Encounter Location Date Provider Diagnosis [facility] [place] [facility] [address] [place] [address] 01/28/2025 Kamran Jacobson Plan Of Treatment Next Appt Details Provider Name:Kamran Jacobson , 04/22/2025 03:00:00 PM, [address], [facility], Progress Notes * CAROL DUNCANDOB: 6 (79 yo M)Acc No.[id number]:01/28/2025 Progress Notes Patient: CAROL MIRANDA Provider: Malini VELÁSQUEZ MD, F.A.C.P, F.A.S.N. :1945 A ge:79 Y S ex:Male Date:01/28/2025 Address:[address] [place] [address] Subjective: * Chief Complaints: Objective: Assessment: Plan: * Billing Information: * Visit Code: * Procedure Codes: * Electronic signature of Brian Jacobson MD on 04/02/2025 at 09:02 AM HOSPICE CLINICAL MARKETER Sign off status: Pending * Provider: Malini VELÁSQUEZ MD, F.A.C.P, F.A.S.N. Date: Generated for Printing/Faxing/eTransmitting on: 06/03/2024 09:02 AM HOSPICE CLINICAL MARKETER
--- OUTSIDE RECORDS SUMMARY | 2025-02-18 10:45 | XMS_ITS ---
Author Organization [facility] Address [address] [address] [place] [address] Care Team Providers Care Slot Floor Person Name Role Phone Kavon Kamran Unavailable [phone] Social History Sex Assigned At : Social History Observation Description Sex Assigned At Male Problems Problem Type SNOMED Code ICD Code Onset Dates Problem Status W/U Status Risk Notes Problem Renal osteodystrophy (07026151) Renal osteodystrophy (N25.0) Active confirmed Problem Secondary hyperparathyroidism of renal origin (05528767) Secondary hyperparathyroidism of renal origin (N25.81) Active confirmed Encounters Encounter Location Date Provider Diagnosis [place] [facility] [address] [facility] [address] [place] [address] 02/18/2025 Kamran Jacobson Chronic kidney disea se, [...] Name:Kamran Kavon , 04/22/2025 03:00:00 PM, [address] [facility], [facility] [address], [place], [address], Progress Notes * DUNCAN, CAROLDOB: 6 (79 yo M)Acc No.[id number]:02/18/2025 Progress Notes Patient: CAROL MIRANDA Provider: Malini VELÁSQUEZ MD, F.A.C.P, F.A.S.N. :1945 A ge:79 Y S ex:Male Date:02/18/2025 Address:[address] [place], [place] [id number] Subjective: * Chief Complaints: Objective: Assessment: * [...] Plan: * Billing Information: * Visit Code: 23090 Office Visit, Est Pt., Level 4. * Procedure Codes: * Electronic signature of Brian Jacobson MD on 04/02/2025 at 09:05 AM DINING ROOM COORDINATOR Sign off status: Pending * Provider: Malini VELÁSQUEZ MD, F.A.C.P, F.A.S.N. Date: 04/20/2024 Generated for Printing/Faxing/eTransmitting on: 06/03/2024 09:05 AM DINING ROOM COORDINATOR
--- NOTE | 2025-04-02 08:54 | ECG_ITS ---
Test Date: 2025-04-02 09:00:38 Measurements Intervals [place] Rate: 62 P: 261 AR: 167 QRS: -41 QRSD: 124 T: 66 QT: 404 QTc: 413 Interpretive Statements SINUS RHYTHM LEFT AXIS DEVIATION INTRAVENTRICULAR CONDUCTION DELAY POOR R WAVE PROGRESSION CONSIDER INFERIOR INFARCT, AGE INDETERMINATE BASELINE ARTIFACT- I, II, AVR ABNORMAL ECG No previous ECG available for comparison Electronically Signed On 04-02-2025 11:31:00 STAFF CLIMATE SCIENTIST by Juan Graves D.O.
--- OUTSIDE RECORDS SUMMARY | 2025-04-02 09:02 | XMS_ITS | Patient Health Record ---
Author Organization [facility] Address [address] [place] [address] Care Team Providers Care Fresh Food Manager Name Role Phone Kamran Jacobson Unavailable [phone] Reason For Referral No Information Medications Medication SIG (Take, Route, Frequency, Duration) Notes Start Date End Date Status Vitamin D (Ergocalciferol) 1.25 MG (23262 UT) TAKE 1 CAPSULE BY MOUTH 1 [...] Hyperglycemia due to type 2 diabetes mellitus (753545499889446) Type 2 diabetes mellitus with hyperglycemia (E11.65) Active confirmed Problem Syndrome of inappropriate secretion of antidiuretic hormone (09365565) 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 confirmed Problem Hypervitaminosis D (83472590) 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) Active confirmed Problem Hypo-osmolality and or hyponatremia (998491148) Hypo-osmolality and hyponatremia (E87.1) Active confirmed Problem Essential hypertension (38621173) Essential (primary) hypertension (I10) Active confirmed Problem Acute bronchitis (78189085) Acute bronchitis, unspecified (J20.9) Active confirmed Problem Acute exacerbation o f chronic obstructive airways disease (106863121) Chronic obstructive pulmonary disease with (acute) exacerbation (J44.1) Active confirmed Problem Renal osteodystrophy (21991946) Renal osteodystrophy (N25.0) Active confirmed Problem Secondary hyperparathyroidism of renal origin (66771797) Secondary hyperparathyroidism of renal origin (N25.81) Active confirmed Problem Acquired renal cysti c disease (980203532) Cyst of kidney, 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) Active confirmed Problem Chronic kidney disease stage 3B (disorder) (160177837) Chronic kidney disease, stage 3b (N18.32) Active confirmed Encounters Encounter Location Date Provider Diagnosis [facility] [address] [address] 05/14/2024 Kamran Jacobson Chronic kidney disea se, stage 3a N18.31 ; Type 2 diabetes mellitus with hyperglycemia E11.65 ; Essential (primary) hypertension I10 ; Chronic obstructive pulmonary disease with (acute) exacerbation J44.1 ; Cyst of kidney, acquired N28.1 and 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 [facility] [address] [address] 07/09/2024 Kamran Jacobson Chronic kidney disea se, stage 3a N18.31 ; Type 2 diabetes mellitus with hyperglycemia E11.65 ; Essential (primary) hypertension I10 ; Chronic obstructive pulmonary disease with (acute) exacerbation J44.1 ; Cyst of kidney, acquired N28.1 ; 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 ; Hypo-osmolality and hyponatremia E87.1 and Acute bronchitis, unspecified J20.9 [facility] [address] [address] 10/08/2024 Kamran Jacobson Chronic kidney disea se, stage 3b N18.32 ; Type 2 diabetes mellitus with hyperglycemia E11.65 ; Essential (primary) hypertension I10 ; Chronic obstructive pulmonary disease with (acute) exacerbation J44.1 ; Cyst of kidney, acquired N28.1 ; 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 ; Hypo-osmolality and hyponatremia E87.1 and Acute bronchitis, unspecified J20.9 [facility] [address] [address] 12/03/2024 Kamran Jacobson Chronic kidney disea se, stage 3b N18.32 ; Type 2 diabetes mellitus with hyperglycemia E11.65 ; Essential (primary) hypertension I10 ; Chronic obstructive pulmonary disease with (acute) exacerbation J44.1 ; Cyst of kidney, acquired N28.1 ; 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 ; Hypo-osmolality and hyponatremia E87.1 ; Acute bronchitis, unspecified J20.9 and 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 [facility] [address] [address] 02/18/2025 Kamran Jacobson Chronic kidney disea se, [...] and Secondary hyperparathyroidism of renal origin N25.81 [facility] [address] [address] 11/14/2024 Kamran Jacobson [facility] [address] [address] 12/17/2024 Kmaran Jacobson Assessments Encounter Date Diagnosis (ICD Code) Assessment Notes Treatment Notes Treatment Clinical Notes Section Notes 05/14/2024 Chronic kidney disea se, stage 3a (ICD-10 - N18.31) 07/09/2024 Chronic kidney disea se, stage 3a (ICD-10 - N18.31) 10/08/2024 Chronic kidney disea se, stage 3b (ICD-10 - N18.32) 12/03/2024 Type 2 diabetes mellitus with hyperglycemia (ICD-10 - E11.65) 12/03/2024 Chronic kidney disea se, stage 3b (ICD-10 - N18.32) 02/18/2025 Type 2 diabetes mellitus with hyperglycemia (ICD-10 - E11.65) 02/18/2025 Chronic kidney disea se, stage 3b (ICD-10 - N18.32) 02/18/2025 Essential (primary) hypertension (ICD-10 - I10) 12/03/2024 Essential (primary) hypertension (ICD-10 - I10) [...] 10/08/2024 Essential (primary) hypertension (ICD-10 - I10) 02/18/2025 Chronic obstructive pulmonary disease with (acute) exacerbation (ICD-10 - J44.1) 02/18/2025 Cyst of kidney, acquired (ICD-10 - N28.1) 10/08/2024 Chronic obstructive pulmonary disease with (acute) [...] of antidiuretic hormone (ICD-10 - E22.2) 10/08/2024 Cyst of kidney, acquired (ICD-10 - N28.1) 12/03/2024 Syndrome of inappropriate secretion of antidiuretic hormone (ICD-10 - E22.2) 12/03/2024 Hypo-osmolality and hyponatremia (ICD-10 - E87.1) 02/18/2025 Hypo-osmolality and hyponatremia (ICD-10 - E87.1) 10/08/2024 Syndrome of inappropriate secretion of antidiuretic hormone (ICD-10 - E22.2) 05/14/2024 Syndrome of inappropriate secretion of antidiuretic hormone (ICD-10 - E22.2) 07/09/2024 Syndrome of inappropriate secretion of antidiuretic hormone (ICD-10 - E22.2) 07/09/2024 Hypo-osmolality and hyponatremia (ICD-10 - E87.1) 10/08/2024 Hypo-osmolality and hyponatremia (ICD-10 - E87.1) 02/18/2025 Acute bronchitis, unspecified (ICD-10 - J20.9) 12/03/2024 Acute bronchitis, unspecified (ICD-10 - J20.9) 02/18/2025 Hypervitaminosis D (ICD-10 - E67.3) 12/03/2024 Hypervitaminosis D (ICD-10 - E67.3) 10/08/2024 Acute bronchitis, unspecified (ICD-10 - J20.9) 07/09/2024 Acute bronchitis, unspecified (ICD-10 - J20.9) 02/18/2025 Renal osteodystrophy (ICD-10 - N25.0) 02/18/2025 Secondary hyperparathyroidism of renal origin (ICD-10 - N25.81) Plan Of Treatment Next Appt Details Provider Name:Kamran Jacobson , 04/22/2025 03:00:00 PM, [address] [place] [address], [address],
--- OUTSIDE RECORDS SUMMARY | 2025-04-02 09:03 | XMS_ITS | Clinical Summary ---
Author Organization [facility] Address [address] [place] [address] Care Team Providers Care Senior Systems Architect Name Role Phone Melody Gee NP Unavailable [phone] Bhavesh Marroquin MD Primary Care Provider Kamran Jacobson MD Unavailable [phone] Ole Leroy DO Unavailable [phone] Allergies Active Allergy Reactions Criticality Noted Date [...] hyperglycemia, without long-term current use of insulin ([facility]) 3 x daily 300 each 3 4 Active Quality Systemsuch Verio Flex meter miscIndications :Type 2 diabetes mellitus with hyperglycemia, without long-term current use of insulin ([facility]) One glucometer 1 each 4 Active Clarabridgeio test strips stripIndication s:Type 2 diabetes mellitus with hyperglycemia, without long-term current use of insulin ([facility]) Check 2-3 x daily 300 each 3 4 Active blood-glucose meter miscIndications :Type 2 diabetes mellitus with hyperglycemia, without long-term current use of insulin ([facility]) One Touch Verio Reflect Use to check BG 2-3 times daily 1 each 4 Active ipratropium (ATROVENT) 21 mcg (0.03 %) nasal spray INSTILL 2 SPRAYS ONCE TO THREE TIMES DAILY INTO EACH NOSTRIL 5 Active TRUEplus Pen Needle 31 gauge x 1/4 needle DIRECTED EVERY DAY 4 Active albuterol HFA (PROVENTIL HFA,VENTOLIN HFA,PROAIR HFA) [...] hyperglycemia, with long-term current use of insulin ([facility]) ADMINISTER 18 UNITS UNDER THE SKIN EVERY NIGHT 15 mL 5 5 Active dulaglutide (TRULICITY) 4.5 mg/0.5 mL pen injectorIndicat ions:type 2 diabetes mellitus Inject 0.5 mL (4.5 mg total) under the skin once a week 6 mL 3 5 03/03/20 26 Active Active Problems Problem Noted Date Diagnosed [...] care. Assessment & Plan (03/12/2024 1:24 PM MAPPING SPECIALIST): Continue Spiriva Handihaler once daily Continue Dulera [...] therapy Assessment & Plan (03/12/2024 1:23 PM MAPPING SPECIALIST): He has had ENT evaluation and treatment [...] 12/25/2023 Assessment & Plan (03/12/2024 1:25 PM MAPPING SPECIALIST): Multiple tree-in-bud opacities noted on CT chest [...] Chronic problem. Managed by Dr Jacobson in [place]. Sees him every 2-3 months. Has appt 11/2024. Has restarted him on Jardiance (stopped in past d/t yeast infections). Aware to watch for yeast infection. Nephropathy: On LANDON-I / ARB s : Yes. Losartan 100mg. Last MA: 02/18/24 (34) Last creat/GFR: 09/10/24 GFR=51, CR=1.40. Assessment & Plan (06/18/2024 10:05 AM MAPPING SPECIALIST): Chronic problem. Managed by Dr Jacobson in [place]. Has appt 07/2024 he believes. Sees him every 3 months. Nephropathy: On LANDON-I / ARB s : Yes. Losartan 50mg. Last MA: 02/18/24 (34) Last creat/GFR: 05/14/24 GFR=51, CR=1.40. Assessment & Plan (08/23/2023 3:34 PM CDT): Chronic problem. Managed by Dr Jacobson in [place]. Has appt 09/2023 he believes. Sees him every 3 months. Last creat/GFR: 08/20/23 GFR=52, CR=1.40. Assessment & Plan (03/26/2023 1:17 PM MAPPING SPECIALIST): On [facility] Assessment & Plan (12/14/2022 2:07 PM CDT): Chronic problem. Managed by Dr Jacobson in [place]. Chronic lymphoid leukemia, w ithout mention of having achieved remission(204.10) 12/13/2017 Hyperlipidemia associated with type 2 diabetes m adenike 08/29/2010 Overview (07/27/2017): Description: Hyperlipidemia Assessment & Plan (03/03/2025 9:07 AM MAPPING SPECIALIST): Chronic problem. Controlled on current Rosuvatatin 40mg. Last lipid panel: 11/05/24 LDL=30, VO=313. Assessment & Plan (11/05/2024 8:52 AM CDT): Chronic problem. Controlled on current Rosuvatatin 40mg. Last lipid panel: 11/14/23 LDL=47, TG=75. Will update labs. Does not mychart. Verified phone #/address to contact re: results. Assessment & Plan (06/18/2024 9:55 AM MAPPING SPECIALIST): Chronic problem. Controlled on current Rosuvatatin 40mg. Last lipid panel: 11/14/23 LDL=47, TG=75. Assessment & Plan (02/20/2024 10:21 AM MAPPING SPECIALIST): Continue statin therapy Assessment & Plan (08/23/2023 3:26 PM CDT): Chronic problem. Controlled on current Rosuvatatin 40mg. Last lipid panel: 10/30/22 LDL=40, SZ=345. Assessment & Plan (03/26/2023 1:16 PM MAPPING SPECIALIST): Chronic, stable Continue current statin therapy Tolerating well Assessment & Plan (12/14/2022 2:02 PM CDT): Chronic problem. Controlled on current Rosuvatatin 40mg. Last lipid panel: 10/30/22 LDL=40, WB=709. Assessment & Plan (09/13/2022 5:14 PM CDT): Chronic, stable Continue current statin therapy Tolerating well Hypertension associated with type 2 diabetes simran litus 08/29/2010 Overview (07/27/2017): Description: Hypertension Assessment & Plan (03/03/2025 9:07 AM MAPPING SPECIALIST): Chronic problem. Controlled with current Carvedilol 12.5mg bid, losartan 100mg daily Assessment & Plan (11/05/2024 8:53 AM CDT): Chronic problem. Controlled with current Carvedilol 12.5mg bid, losartan 100mg daily Assessment & Plan (06/18/2024 9:55 AM MAPPING SPECIALIST): Chronic problem. Controlled with current Carvedilol 12.5mg bid, losartan 100mg daily Assessment & Plan (02/20/2024 10:23 AM MAPPING SPECIALIST): Chronic, well controlled Continue losartan Assessment & Plan (08/23/2023 3:26 PM CDT): Chronic problem. Controlled with current Carvedilol 12.5mg bid, losartan 50mg daily, amlodipine 5mg daily. Assessment & Plan (03/26/2023 1:17 PM MAPPING SPECIALIST): Chronic, well controlled Continue amlodipine, losartan Assessment & Plan (12/14/2022 2:02 PM CDT): Chronic problem. Controlled with current Carvedilol 12.5mg bid, losartan 50mg daily, amlodipine 5mg daily. Assessment & Plan (09/13/2022 5:13 PM CDT): Chronic, well controlled Continue amlodipine, losartan Atherosclerosis of coronary artery 08/29/2010 Overview (07/27/2017): Description: Coronary Artery Disease Diabetes mellitus 03/22/2006 Assessment & Plan (03/03/2025 9:18 AM MAPPING SPECIALIST): Chronic problem. A1c not at goal & worsened from 7.4% 11/05/24 to now 7.7%. cannot tolerate Jardiance (yeast infections). Will increase Trulicity from 3mg to 4.5mg at next refill. 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 Current medications: Trulicity 4.5 mg weekly Lantus 25 units every evening UTD DM eye exam (04/11/23 no [facility] [employer]). 2023 at [place] [facility], letter sent to get copy of [...] skin breakdown and infection. Assessment & Plan (11/05/2024 9:51 AM CDT): Chronic problem. A1c near goal & improved from 8.6% 06/18/24 to now 7.4%. If noticing lower blood sugars with starting the Jardiance; drop the Lantus 2 units weekly until the lows resolve. UTD DM eye exam (04/11/23 no [facility] [employer] [facility] [email or web address], letter sent to get copy of report. [...] infection. Assessment & Plan (06/18/2024 10:07 AM MAPPING SPECIALIST): Chronic problem. A1c increased from 8.3% 02/2024 [...] UTD DM eye exam (03/2023). 2023 at [place] [employer], letter sent to get copy of report. [...] infection. Assessment & Plan (02/20/2024 10:23 AM MAPPING SPECIALIST): Chronic, uncontrolled, worsening Hemoglobin A1c 8.3%, goal [...] infection. Assessment & Plan (03/26/2023 1:18 PM MAPPING SPECIALIST): Chronic, significant improvement in control A1c - [...] units daily DM eye exam 2021 at [facility] in [place]--letter sent to get report. Will update MA/Cr [...] Encounters Date Type Department Care Team Description 03/26/2025 9:45 AM MAPPING SPECIALIST Office Visit [facility] [address] [place] [phone] Ole Leroy, Chronic lymphoid leukemia, without mention of having achieved remission(204.10) (HCC) (Primary Dx) 03/26/2025 9:15 AM MAPPING SPECIALIST Lab [facility] at [address] [address] Chronic lymphoid leukemia, without mention of having achieved remission(204.10) (HCC) 03/23/2025 Orders Only [facility] [address] [phone] Chapin Aquino MD 03/11/2025 9:48 AM MAPPING SPECIALIST - 03/11/2025 11:59 PM MAPPING SPECIALIST Hospital Encounter [facility] [address] [place] [address] Chronic lymphoid leukemia, without mention of having achieved remission(204.10) (HCC) Discharge Disposition: Discharge to home or self care 03/03/2025 9:00 AM MAPPING SPECIALIST Office Visit [facility] Diabetes and Endocrinology [address] [place] [phone] Marylou Felipe, TEAM LEAD Type 2 diabetes mellitus with hyperglycemia, with long-term current use of insulin (HCC) (Primary Dx); Hypertension associated with type 2 diabetes mellitus (HCC); Hyperlipidemia associated with type 2 diabetes mellitus (HCC) 02/05/2025 Telephone [facility] [address] [place], [place] [address], [place] [phone] Sandra Berkowitz CMA 02/02/2025 10:00 AM CDT Office Visit [facility] Pulmonary at [address] [place] [address] Melody Gee, SASCHA Hoarseness (Primary Dx); Hemoptysis; Stage 2 moderate COPD by GOLD classification (HCC) from Last 3 Months Immunizations Immunization [...] drink = 0.6 oz pur e alcohol) [facility] Utilities Answer Date Recorded In the past 12 months has [employer], gas, oil, or water company threatened to shut off services in your [...] often do you attend chur ch or caodaism services? Never 08/06/2024 Do you belong to any clubs o r organizations such as islam groups, unions, fraternal or athletic groups, or school groups? No 08/06/2024 How often do you attend meet ings of the clubs or organizations you belong to? Never 08/06/2024 Are you , , di vorced, , never , or living with a partner? 08/06/2024 Overall Financial Resource Strain (CARDIA) Answe r [...] any time in the past 12 m [facility], were you homeless or living in a fpc (including now)? No 08/06/2024 AUDIT-C Answer Date Recorded Frequency of Alcohol Consumption Not on file 03/26/2025 Q2: How many drinks containi ng alcohol do you have on a typical day when you are drinking? Patient does not drink Frequency of Binge Drinking Not on file 03/16 Personal Safety Answer Date Recorded Have you ever been in or are you currently in a harmful physical or emotional relationship or is someone making you feel afraid or unsafe? Denies 08/14/2024 Sex and Gender Information Value Date Recorded Sex Assigned at Not on file Legal Sex Male 2:07 AM MAPPING SPECIALIST Gender Identity Not on file Sexual Orientation Not on file Last Filed Vital Signs Vital Sign Reading Time Taken Comments Blood Pressure 110/70 03/26/2025 9:41 AM MAPPING SPECIALIST Pulse 67 03/26/2025 9:41 AM MAPPING SPECIALIST Temperature 36.3 C (97.3 F) 03/26/2025 9:41 AM MAPPING SPECIALIST Respiratory Rate 18 03/26/2025 9:41 AM MAPPING SPECIALIST Oxygen Saturation 99% 03/26/2025 9:41 AM MAPPING SPECIALIST Inhaled Oxygen Concentration - - Weight 90.3 kg (199 lb 1.2 oz) 03/26/2025 9:41 A M MAPPING SPECIALIST Height 177.8 cm (5' 10) 03/03/2025 8:41 AM MAPPING SPECIALIST Body Mass Index 28.56 03/03/2025 8:41 AM MAPPING SPECIALIST Plan of Treatment Health Maintenance Due Date Last Done Comments Depression Screening 1945 Hepatitis C Screening 1945 Hepatitis B Screening 10/26/1963 Well Visit 65+ 2010 Pneumococcal vaccine 65+ (3 of 3 - PCV) 06/27/2017 06/27/2016, 06/23/2011, 04/17/2011 Zoster Vaccine (2 of 2) 03/27/2024 01/31/2024 Covid-19 Vaccine (2024-2 6 season) 2024 03/07/2022, 03/27/2021, 01/14/2021, Additional history exists Influenza Vaccine (#1) 2024 , 01/23/2021, 01/14/2021, Additional history exists Fall Risk Assessment 08/07/2025 08/07/2024 Hemoglobin A1C 08/31/2025 03/03/2025, 07/2 06/2024, 06/18/2024, Additional history exists Albumin Creatinine Ratio, Urine 11/05/2025 11/05/2024, 02/18/2024, 12/14/2022 Foot Exam 11/05/2025 11/05/2024, 11/0 07/2023, 03/26/2023, Additional history exists Lipid Panel 11/05/2025 11/05/2024, 07/3 04/2023, 10/30/2022 eGFR 03/26/2026 03/26/2025, 08/2 10/2024, 09/10/2024, Additional history exists Dilated Eye Exam 08/19/2026 08/19/2024, 04/11/2023 DTaP/Tdap/Td Vaccine (2 - Td or Tdap) 08/14/2027 08/13/2017 Abdominal Aortic Aneurysm (A AA) Screen Completed 03/11/2025 Procedures Procedure Name Priority Date/Time Associated Diagnosis Comments EGFR Routine 03/26/2025 9:27 AM MAPPING SPECIALIST Chronic lymphoid leukemia, without mention of having achieved remission(204.10) (HCC) DIFFERENTIAL AUTO Routine 03/26/2025 9:2 7 AM MAPPING SPECIALIST Chronic lymphoid leukemia, without mention of having achieved remission(204.10) (HCC) CBC WITH AUTO DIFFERENTIAL Routine 03/26/2025 9:27 AM MAPPING SPECIALIST Chronic lymphoid leukemia, without mention of having achieved remission(204.10) (HCC) COMPREHENSIVE METABOLIC PANEL Routine 03/26/2025 9:27 AM MAPPING SPECIALIST Chronic lymphoid leukemia, without mention of having achieved remission(204.10) (HCC) IGG Routine 03/26/2025 9:27 AM MAPPING SPECIALIST Chronic lymphoid leukemia, without mention of having achieved remission(204.10) (HCC) LACTATE DEHYDROGENASE Routine 03/26/2025 9:27 AM MAPPING SPECIALIST Chronic lymphoid leukemia, without mention of having achieved remission(204.10) (HCC) ERYTHROCYTE SEDIMENTATION RATE Routine 03/26/2025 9:27 AM MAPPING SPECIALIST Chronic lymphoid leukemia, without mention of having achieved remission(204.10) (HCC) CT CHEST ABDOMEN PELVIS W CONTRAST Schedule Routine, Read Routine (OP Routine) 03/11/2025 10:55 AM MAPPING SPECIALIST Chronic lymphoid leukemia, without mention of having achieved remission(204.10) (HCC) POCT CREATININE FOR CONTRAST EVALUATION Routine 03/11/2025 10:28 AM MAPPING SPECIALIST POCT HEMOGLOBIN A1C Routine 03/03/2025 8 :51 AM MAPPING SPECIALIST Type 2 diabetes mellitus with hyperglycemia, with long-term current use of insulin (HCC) POCT GLUCOSE Routine 03/03/2025 8:46 AM MAPPING SPECIALIST Type 2 diabetes mellitus with hyperglycemia, with long-term current use of insulin (HCC) LIPID PANEL Routine 11/05/2024 12:00 PM CDT Hyperlipidemia associated with type 2 diabetes mellitus (HCC) Type 2 diabetes mellitus with stage 3b chronic kidney disease, with long-term current use of insulin (HCC) ALBUMIN CREATININE RATIO, URINE Routine 11/05/2024 12:00 PM CDT Type 2 diabetes mellitus with stage 3b chronic kidney disease, with long-term current use of insulin (HCC) DIABETES EYE EXAM Routine 08/19/2024 3:00 PM CDT from Last 3 Months or Most Recently Relevant to Health Maintenance Results * (ABNORMAL) eGFR (03/26/2025 9:27 AM MAPPING SPECIALIST) eGFR 35(L) >=60 mL/min/1. 73 m2 Comment: [...] of Race in Diagnosing Kidney Disease, JASN 202). The CKD-EPI equation should not be used for patients with unstable renal function and has not been validated in children and those over 70. Current interpretive data was last reviewed 2021. Testing performed by: [facility], [address] [place] [address], [place]., [address] Blood 03/26/2025 9:27 AM MAPPING SPECIALIST 03/26/2025 9:31 AM MAPPING SPECIALIST Radhames Barker TEAM LEAD LAB BLOOD ORDERABLES Final Result [facility] [address] [facility] Department [place] [address] * (ABNORMAL) Differential, auto (03/26/2025 9:27 AM MAPPING SPECIALIST) Neutrophil abs 4.32 1.50 - 6.50 K/cumm Comment:Testing performed by : [address] [address] Imm gran abs 0.03 0.00 - 0.10 K/cumm [facility] Comment:Testing performed by : [address] [address] Lymphocyte abs 10.08(H) 0.80 - 3.30 K/cumm [facility] Comment:Testing performed by : [address] [address] Monocyte abs 2.14(H) 0.20 - 0.80 K/cumm [facility] Comment:Testing performed by : [address] [address] Eosinophil abs 0.11 0.00 - 0.50 K/cumm [facility] Comment:Testing performed by : [address] [address] Basophil abs 0.04 0.00 - 0.10 K/cumm [facility] Comment:Testing performed by : [address] [address] Neutrophil pct 25.8 % [facility] Comment: Interpretive Data Percent cell count reference ranges are not reported, since discordance with absolute values may lead to misinterpretation of CBC data. Current Interpretive Data was last revised on 2017. Testing performed by: [address] [address] Imm gran pct 0.2 % [facility] Comment: Interpretive Data Percent cell count reference ranges are not reported, since discordance with absolute values may lead to misinterpretation of CBC data. Current Interpretive Data was last revised on 2017. Testing performed by: [address] [address] Lymphocyte pct 60.3 % [facility] Comment: Interpretive Data Percent cell count reference ranges are not reported, since discordance with absolute values may lead to misinterpretation of CBC data. Current Interpretive Data was last revised on 2017. Testing performed by: [address] [address] Monocyte pct 12.8 % [facility] Comment: Interpretive Data Percent cell count reference ranges are not reported, since discordance with absolute values may lead to misinterpretation of CBC data. Current Interpretive Data was last revised on 2017. Testing performed by: [address] [address] Eosinophil pct 0.7 % [facility] Comment: Interpretive Data Percent cell count reference ranges are not reported, since discordance with absolute values may lead to misinterpretation of CBC data. Current Interpretive Data was last revised on 2017. Testing performed by: [address] [address] Basophil pct 0.2 % [facility] Comment: Interpretive Data Percent cell count reference ranges are not reported, since discordance with absolute values may lead to misinterpretation of CBC data. Current Interpretive Data was last revised on 2017. Testing performed by: [address] [address] Blood 03/26/2025 9:27 AM MAPPING SPECIALIST 03/26/2025 9:31 AM MAPPING SPECIALIST us Radhames Barker NP LAB BLOOD ORDERABLES Final Result [facility]ON [address] [facility] Department of Laboratories [place], [place] [id number] * (ABNORMAL) CBC with auto differential (03/26/2025 9:27 AM MAPPING SPECIALIST) WBC 16.72(H) 3.80 - 9.90 K/cumm Comment:Testing performed by : [address] [address] Hgb 13.6 13.0 - 17.5 g/dL [facility] Comment:Testing performed by : [address], [address] Hct 40.4 38.9 - 50.3 % [facility] Comment:Testing performed by : [address] [address] Plt 85(L) 150 - 400 K/cumm [facility] Comment:Testing performed by : [address], [address] MPV 11.5 9.1 - 12.3 fL [facility] Comment:Testing performed by : [address], [address] RBC 4.51 4.30 - 5.80 M/cumm [facility] Comment:Testing performed by : [address], [address] MCV 89.6 81.3 - 96.4 fL [facility] Comment:Testing performed by : [address], [address] MCH 30.2 27.1 - 33.3 pg [facility] Comment:Testing performed by : [address], [address] MCHC 33.7 32.3 - 35.7 g/dL [facility] Comment:Testing performed by : [address], [address] RDW CV 13.6 11.1 - 14.9 % [facility] Comment:Testing performed by : [address], [address] RDW SD 44.3 35.7 - 48.1 fL [facility] Comment:Testing performed by : [address] [address] NRBC abs 0.00 0.00 - 0.01 K/cumm [facility] Comment:Testing performed by : [address], [address] ANC Prelim 4.32 1.50 - 6.50 K/cumm [facility] Comment: Interpretive Data The rapid ANC is a preliminary automated count and may vary from the final ANC (Neut Abs) reported in the WBC differential that follows. Current interpretive data was last revised 2024. Testing performed by: [address] [address] Morphologic Screen Results confirmed by manual morphology review. [facility] Comment:Testing performed by : [address] [address] Blood 03/26/2025 9:27 AM MAPPING SPECIALIST 03/26/2025 9:31 AM MAPPING SPECIALIST Radhames Barker NP LAB BLOOD ORDERABLES Edited Result - Final Performing Organization Address City/[facility]/ZIP Co de Phone Number [facility] [place] [address] * Erythrocyte sedimentation rate (03/26/2025 9:27 AM MAPPING SPECIALIST) Erythrocyte sedimentation rate 4 1 - 20 mm/hr Comment:Testing performed by : [address] [address] Blood 03/26/2025 9:27 AM MAPPING SPECIALIST 03/26/2025 11:46 AM MAPPING SPECIALIST Radhames Barker NP LAB BLOOD ORDERABLES Final Result [facility] [address] [place] [address] * Lactate dehydrogenase (LD) (03/26/2025 9:27 AM MAPPING SPECIALIST) Lactate dehydrogenase (LDH) 124 100 - 250 Units/L Comment:Testing performed by : [address] [address] Blood 03/26/2025 9:27 AM MAPPING SPECIALIST 03/26/2025 9:31 AM MAPPING SPECIALIST Radhames Wendy Oz TEAM LEAD LAB BLOOD ORDERABLES Final Result [facility] [address] [place] [address] * IgG (03/26/2025 9:27 AM MAPPING SPECIALIST) Pathologist [facility] Immunoglobulin G 813 700 - 1,600 mg/dL Blood 03/26/2025 9:27 AM MAPPING SPECIALIST 03/26/2025 12:29 PM MAPPING SPECIALIST Radhames Barker NP LAB BLOOD ORDERABLES Final Result Performing Organization Address [facility] Co de Phone Number [facility] [address] [place] [address] * (ABNORMAL) Comprehensive metabolic panel (03/26/2025 9:27 AM MAPPING SPECIALIST) [facility] Sodium 142 135 - 145 mmol/L Comment:Testing performed by : [address] [address] Potassium, pl 4.7 3.3 - 4.9 mmol/L [facility] Comment:Testing performed by : [address] [address] Chloride 106 97 - 110 mmol/L [facility] Comment:Testing performed by : [address] [address] CO2 25 22 - 32 mmol/L [facility] Comment:Testing performed by : [address] [address] Anion gap 11 2 - 15 mmol/L [facility] Comment:Testing performed by : [address] [address] BUN 25 6 - 25 mg/dL [facility] Comment:Testing performed by : [address] [address] Creatinine 1.90(H) 0.80 - 1.30 mg/dL [facility] Comment:Testing performed by : [address] [address] Glucose 165 70 - 199 mg/dL [facility] Comment: Interpretive [...] was last revised 2022. Testing performed by: [address] [address] Calcium 9.7 8.5 - 10.3 mg/dL [facility] Comment:Testing performed by : [address] [address] Bilirubin, total 0.7 0.1 - 1.2 mg/dL [facility] Comment:Testing performed by : [address] [address] Protein, pl 6.6 6.5 - 8.5 g/dL [facility] Comment:Testing performed by : [address] [address] Albumin 4.4 3.5 - 5.0 g/dL [facility] Comment:Testing performed by : [address] [address] Alk phos 117 40 - 130 Units/L [facility] Comment:Testing performed by : [address] [address] ALT 25 7 - 55 Units/L [facility] Comment:Testing performed by : [address] [address] AST 29 10 - 50 Units/L [facility] Comment:Testing performed by : [address] [address] Blood 03/26/2025 9:27 AM MAPPING SPECIALIST 03/26/2025 9:31 AM MAPPING SPECIALIST us Radhames Barker TEAM LEAD LAB BLOOD ORDERABLES Final Result [facility] [address] [facility] [place] [address] * CT Chest Abdomen Pelvis W Contrast (03/11/2025 10:55 AM MAPPING SPECIALIST) Anatomical Region Laterality Modality Body N/A Computed Tomogra phy 03/18/2025 10:3 5 AM MAPPING SPECIALIST Impressions 03/18/2025 10:35 AM MAPPING SPECIALIST Chest: 1. Scattered areas of tree-in-bud nodularity in the lungs, right greater than left, grossly stable compared to the prior examination. No new suspicious pulmonary nodule. 2. No new lymphadenopathy within the chest. 3. Additional incidental findings as above. Abdomen and pelvis: 1. Splenomegaly. There is a nonspecific focus of enhancement at the inferior pole of the spleen. This is indeterminate but could represent an atypical hemangioma. Comparison with prior CT abdomen and pelvis examinations would be of benefit if available. 2. Multiple scattered mesenteric lymph nodes, measuring up to 8 mm short axis. No prior studies available for comparison. These could be reactive or neoplastic. 3. Retroperitoneal nodes, borderline enlarged and mildly enlarged as noted above. Comparison to prior study recommended. 4. Cholelithiasis without cholecystitis. 5. Additional incidental findings as above. Electronically signed by: Maia Irving M.D. Narrative 03/18/2025 10:35 AM MAPPING SPECIALIST EXAMINATION: CT CHEST ABDOMEN PELVIS W CONTRAST ORDERING HEALTHCARE PROVIDER: RADHAMES BARKER HISTORY: Restaging for CLL. COMPARISON: 09/10/2024, 08/05/2024, 02/19/2024, 02/23/2023 TECHNIQUE: CT chest, abdomen and pelvis with the uneventful intravenous administration of contrast. Automated exposure control was used as a dose optimization technique for this examination. FINDINGS: CHEST HEART: The heart is normal in size, without a pericardial effusion. There are coronary artery calcifications. VASCULATURE: Thoracic aorta is atherosclerotic, without aneurysm. The no dissection. Main pulmonary trunk is within normal limits in caliber. MEDIASTINUM/ABIGAIL: The thyroid gland is unremarkable. There are scattered subcentimeter short axis mediastinal and hilar nodes, stable from prior examination. No new lymphadenopathy. The esophagus is unremarkable. The hiatal hernia, stable. LUNGS/PLEURA:There are scattered bilateral tree-in-bud opacities, right greater than left. These involve all lobes, and appear grossly stable compared to the previous examination. There is bronchial wall thickening noted. Secretions are noted within the distal trachea. The central airways are patent. There is scattered the subsegmental scarring and atelectasis. There is mild underlying bronchiectasis. The focal opacity within the posterior right lower lobe the suggests rounded atelectasis, stable from prior examination. No effusion or pneumothorax. AXILLA: There are scattered axillary nodes bilaterally, subcentimeter in short axis dimension, stable. CHEST WALL: No masses. HARDWARE/LINES/TUBES: None. MUSCULOSKELETAL: There is cervical and thoracic spondylosis with degenerative disc disease. There is no acute osseous abnormality. OTHER: No other acute findings. ABDOMEN/PELVIS LIVER: The liver is within normal limits in size. There are a few scattered the subcentimeter hypodensities in the liver, too small to characterize, appearing grossly stable from prior examination. No new suspicious mass. There are a few granulomatous calcifications. BILIARY: Cholelithiasis. No CT evidence of cholecystitis. Biliary tree within normal limits in size. SPLEEN: Spleen is enlarged measuring 14.6 cm in maximum bipolar dimension, stable. Calcification along the capsule of the the spleen superiorly, stable from prior study. There is a focus of enhancement at the inferior pole of the spleen measuring 1.6 cm, indeterminate. PANCREAS: No identified cystic or solid masses. No significant calcifications. No adjacent inflammation or peripancreatic fluid collections. Pancreatic duct is not dilated. ADRENALS: Normal. KIDNEYS/URINARY TRACT: The kidneys are symmetric in size. There are cortical hypodensities bilaterally, the larger of which are compatible with cysts. Smaller lesions are too small to characterize. There is no hydronephrosis or hydroureter. The urinary bladder is unremarkable. GI: Hiatal hernia. The small bowel loops are normal in caliber. There is no small bowel obstruction. The appendix is normal. The there is diverticulosis of the colon, without diverticulitis. Increased stool burden is noted within the colon. PERITONEUM: The there are multiple scattered the nodes within the small bowel mesentery, measuring subcentimeter in short axis dimension. For instance in the anterior abdomen on image #148 just to the right of midline measuring 8 mm short axis. No comparison to the prior studies can be made as this area was not included in the [id number] on prior examinations. No free intraperitoneal air. No free fluid. RETROPERITONEUM:There are scattered retroperitoneal nodes. The for reference, preaortic node on image #125 measures 9 mm short axis. Aortocaval node the on image 127 measures 9 mm short axis. Preaortic node on image #122 measures 1 cm short axis. The there are scattered subcentimeter short axis iliac chain nodes. REPRODUCTIVE: Normal. VASCULATURE: Abdominal aorta is atherosclerotic, without aneurysm. The the portal vein is patent. MUSCULOSKELETAL: There is mild retrolisthesis of L5 on S1 and grade 1 anterolisthesis of L4 on L5. 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 OTHER: No other acute findings. Procedure Note Maia Irving MD - 03/18/2025 EXAMINATION: CT CHEST ABDOMEN PELVIS W CONTRAST ORDERING HEALTHCARE PROVIDER: RADHAMES BARKER HISTORY: Restaging for CLL. COMPARISON: 09/10/2024, 08/05/2024, 02/19/2024, 02/23/2023 TECHNIQUE: CT chest, abdomen and pelvis with the uneventful intravenous administration of contrast. Automated exposure control was used as a dose optimization technique for this examination. FINDINGS: CHEST HEART: The heart is normal in size, without a pericardial effusion. There are coronary artery calcifications. VASCULATURE: Thoracic aorta is atherosclerotic, without aneurysm. The no dissection. Main pulmonary trunk is within normal limits in caliber. MEDIASTINUM/ABIGAIL: The thyroid gland is unremarkable. There are scattered subcentimeter short axis mediastinal and hilar nodes, stable from prior examination. No new lymphadenopathy. The esophagus is unremarkable. The hiatal hernia, stable. LUNGS/PLEURA:There are scattered bilateral tree-in-bud opacities, right greater than left. These involve all lobes, and appear grossly stable compared to the previous examination. There is bronchial wall thickening noted. Secretions are noted within the distal trachea. The central airways are patent. There is scattered the subsegmental scarring and atelectasis. There is mild underlying bronchiectasis. The focal opacity within the posterior right lower lobe the suggests rounded atelectasis, stable from prior examination. No effusion or pneumothorax. AXILLA: There are scattered axillary nodes bilaterally, subcentimeter in short axis dimension, stable. CHEST WALL: No masses. HARDWARE/LINES/TUBES: None. MUSCULOSKELETAL: There is cervical and thoracic spondylosis with degenerative disc disease. There is no acute osseous abnormality. OTHER: No other acute findings. ABDOMEN/PELVIS LIVER: The liver is within normal limits in size. There are a few scattered the subcentimeter hypodensities in the liver, too small to characterize, appearing grossly stable from prior examination. No new suspicious mass. There are a few granulomatous calcifications. BILIARY: Cholelithiasis. No CT evidence of cholecystitis. Biliary tree within normal limits in size. SPLEEN: Spleen is enlarged measuring 14.6 cm in maximum bipolar dimension, stable. Calcification along the capsule of the the spleen superiorly, stable from prior study. There is a focus of enhancement at the inferior pole of the spleen measuring 1.6 cm, indeterminate. PANCREAS: No identified cystic or solid masses. No significant calcifications. No adjacent inflammation or peripancreatic fluid collections. Pancreatic duct is not dilated. ADRENALS: Normal. KIDNEYS/URINARY TRACT: The kidneys are symmetric in size. There are cortical hypodensities bilaterally, the larger of which are compatible with cysts. Smaller lesions are too small to characterize. There is no hydronephrosis or hydroureter. The urinary bladder is unremarkable. GI: Hiatal hernia. The small bowel loops are normal in caliber. There is no small bowel obstruction. The appendix is normal. The there is diverticulosis of the colon, without diverticulitis. Increased stool burden is noted within the colon. PERITONEUM: The there are multiple scattered the nodes within the small bowel mesentery, measuring subcentimeter in short axis dimension. For instance in the anterior abdomen on image #148 just to the right of midline measuring 8 mm short axis. No comparison to the prior studies can be made as this area was not included in the [id number] on prior examinations. No free intraperitoneal air. No free fluid. RETROPERITONEUM:There are scattered retroperitoneal nodes. The for reference, preaortic node on image #125 measures 9 mm short axis. Aortocaval node the on image 127 measures 9 mm short axis. Preaortic node on image #122 measures 1 cm short axis. The there are scattered subcentimeter short axis iliac chain nodes. REPRODUCTIVE: Normal. VASCULATURE: Abdominal aorta is atherosclerotic, without aneurysm. The the portal vein is patent. MUSCULOSKELETAL: There is mild retrolisthesis of L5 on S1 and grade 1 anterolisthesis of L4 on L5. 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 OTHER: No other acute findings. IMPRESSION: Chest: 1. Scattered areas of tree-in-bud nodularity in the lungs, right greater than left, grossly stable compared to the prior examination. No new suspicious pulmonary nodule. 2. No new lymphadenopathy within the chest. 3. Additional incidental findings as above. Abdomen and pelvis: 1. Splenomegaly. There is a nonspecific focus of enhancement at the inferior pole of the spleen. This is indeterminate but could represent an atypical hemangioma. Comparison with prior CT abdomen and pelvis examinations would be of benefit if available. 2. Multiple scattered mesenteric lymph nodes, measuring up to 8 mm short axis. No prior studies available for comparison. These could be reactive or neoplastic. 3. Retroperitoneal nodes, borderline enlarged and mildly enlarged as noted above. Comparison to prior study recommended. 4. Cholelithiasis without cholecystitis. 5. Additional incidental findings as above. Electronically signed by: Maia Irving M.D. us Radhames Barker TEAM LEAD IMG CT PROCEDURES Fi nal Result * (ABNORMAL) POCT creatinine for contrast evaluation (03/11/2025 10:28 AM MAPPING SPECIALIST) Creatinine POC 1.40(H) 0.80 - 1.30 mg/dL Comment:Testing performed by : [facility], [address] [place] [address]., [id number] Blood 03/11/2025 10:2 8 AM MAPPING SPECIALIST 03/11/2025 10:28 AM MAPPING SPECIALIST us Ole Leroy DO POINT OF CARE TEST ORDERABLE S Final Result BEAT[facility] [address] [facility] Department [place] [address] * (ABNORMAL) POCT hemoglobin A1c (03/03/2025 8:51 AM MAPPING SPECIALIST) Hemoglobin A1C, POC 7.7(A) 4.0 - 5.6 % Blood 03/03/2025 8:51 AM MAPPING SPECIALIST us Marylou Felipe TEAM LEAD POINT OF CARE TEST ORDERA BLES Final Result * (ABNORMAL) POCT glucose (03/03/2025 8:46 AM MAPPING SPECIALIST) Glucose Blood, POC 165 Normal Fasting 70 - 100, Random <200 mg/dL Blood 03/03/2025 8:46 AM MAPPING SPECIALIST us Marylou Felipe NP POINT OF CARE TEST ORDERA BLES Final Result * (ABNORMAL) Albumin Creatinine Ratio, Urine (11/05/2024 12:00 PM CDT) Albumin Ur 25.5 mg/L Comment: Interpretive Data No reference range established. Current interpretive data was last revised 2018. Creatinine Ur 65.4 mg/dL [facility] Comment: Interpretive Data No reference range established. Current interpretive data was last revised 2018. Albumin Creatinine Ratio, Ur 39(H) 1 - 29 mg/g [facility] Urine 11/05/2024 12:0 0 PM CDT 11/05/2024 8:37 PM CDT us Marylou Felipe NP LAB URINE ORDERABLES Ileana l Result [facility] [address] [facility] Department [place] [address] * (ABNORMAL) Lipid panel (11/05/2024 12:00 PM CDT) Pathologist [facility] Cholesterol 92 30 - 199 mg/dL Comment: [...] mg/dL High: >160 mg/dL Calculated using the Neil LDL-C estimating equation. This equation was implemented on 2023. Prior to this date LDL-C was estimated using the Friedewald equation. Literature References: 1. Expert Panel on Integrated Guidelines for Cardiovascular Health and Risk Reduction in Children and Adolescents. Pediatrics 2011;128:S213 2. NCEP Expert Panel. Circulation 2004;110:227 3. Neil Tolliver et al. CAIT Cardiol. 2020 August 14;5(5):540-548. [...] revised on 2017. Chol/HDL ratio 3 BEAT[facility] SIMEON Blood 11/05/2024 12:0 0 PM CDT 11/05/2024 8:37 PM CDT Marylou Felipe NP LAB BLOOD ORDERABLES Ileana l Result [facility] SIME[facility] [address] [address] Department [place] [address] * DIABETES EYE EXAM (08/19/2024 3:00 PM CDT) Historical Provider HEALTH MAINTENANCE Final Result from Last 3 Months or Most Recently Relevant to Health Maintenance Insurance [facility] Advance Directives For more information, please contact: [phone] * Full Code (Latest Code Status on File) Date Activated Date Inactivated Comments 08/14/2024 9:24 AM 08/15/2024 4:47 AM * Full Code Date Activated Date Inactivated Comments 08/05/2024 7:47 PM 08/07/2024 4:35 PM Care Teams Senior Systems Architect Relationship Specialty Start Date End Date Bhavesh Marroquin MD [address] [place] [address] PCP - General Internal Medicine 09/05/22 Melody Gee NP Nurse Practitioner Nurse Practitioner 09/10/20 [place] [id number] [address] Consulting Physician Nephrology 09/05/22 Ole Leroy DO [address] [place] [address] MEDICAL ONCOLOGY, [address] [address] Medical Oncologist/Tassel Snipper Hematology and Oncology 02/19/23
--- OUTSIDE RECORDS SUMMARY | 2025-04-02 09:03 | XMS_ITS ---
Author Organization [facility] Address [address] [place] [address] Care Team Providers Care Print Color Operator Name Role Phone Melody Gee NP Unavailable [phone] Bhavesh Marroquin MD Primary Care Provider Kamran Jacobson MD Unavailable [phone] Ole Leroy DO Unavailable [phone] Active Problems Problem Noted Date Diagnosed Date [...] care. Assessment & Plan (03/12/2024 1:24 PM FAMILY HEALTH NURSE PRACTITIONER): Continue Spiriva Handihaler once daily Continue Dulera [...] therapy Assessment & Plan (03/12/2024 1:23 PM FAMILY HEALTH NURSE PRACTITIONER): He has had ENT evaluation and treatment [...] 12/25/2023 Assessment & Plan (03/12/2024 1:25 PM FAMILY HEALTH NURSE PRACTITIONER): Multiple tree-in-bud opacities noted on CT chest [...] Chronic problem. Managed by Dr Jacobson in [place]. Sees him every 2-3 months. Has appt 11/2024. Has restarted him on Jardiance (stopped in past d/t yeast infections). Aware to watch for yeast infection. Nephropathy: On LANDON-I / ARB s : Yes. Losartan 100mg. Last MA: 02/18/24 (34) Last creat/GFR: 09/10/24 GFR=51, CR=1.40. Assessment & Plan (06/18/2024 10:05 AM FAMILY HEALTH NURSE PRACTITIONER): Chronic problem. Managed by Dr Jacobson in [place]. Has appt 07/2024 he believes. Sees him every 3 months. Nephropathy: On LANDON-I / ARB s : Yes. Losartan 50mg. Last MA: 02/18/24 (34) Last creat/GFR: 05/14/24 GFR=51, CR=1.40. Assessment & Plan (08/23/2023 3:34 PM CDT): Chronic problem. Managed by Dr Jacobson in [place]. Has appt 09/2023 he believes. Sees him every 3 months. Last creat/GFR: 08/20/23 GFR=52, CR=1.40. Assessment & Plan (03/26/2023 1:17 PM FAMILY HEALTH NURSE PRACTITIONER): [facility] Assessment & Plan (12/14/2022 2:07 PM CDT): Chronic problem. Managed by Dr Jacobson in [place]. Chronic lymphoid leukemia, w ithout mention of having achieved remission(204.10) 12/13/2017 Hyperlipidemia associated with type 2 diabetes m adenike 08/29/2010 Overview (07/27/2017): Description: Hyperlipidemia Assessment & Plan (03/03/2025 9:07 AM FAMILY HEALTH NURSE PRACTITIONER): Chronic problem. Controlled on current Rosuvatatin 40mg. Last lipid panel: 11/05/24 LDL=30, WX=822. Assessment & Plan (11/05/2024 8:52 AM CDT): Chronic problem. Controlled on current Rosuvatatin 40mg. Last lipid panel: 11/14/23 LDL=47, TG=75. Will update labs. Does not mychart. Verified phone #/address to contact re: results. Assessment & Plan (06/18/2024 9:55 AM FAMILY HEALTH NURSE PRACTITIONER): Chronic problem. Controlled on current Rosuvatatin 40mg. Last lipid panel: 11/14/23 LDL=47, TG=75. Assessment & Plan (02/20/2024 10:21 AM FAMILY HEALTH NURSE PRACTITIONER): Continue statin therapy Assessment & Plan (08/23/2023 3:26 PM CDT): Chronic problem. Controlled on current Rosuvatatin 40mg. Last lipid panel: 10/30/22 LDL=40, YJ=647. Assessment & Plan (03/26/2023 1:16 PM FAMILY HEALTH NURSE PRACTITIONER): Chronic, stable Continue current statin therapy Tolerating well Assessment & Plan (12/14/2022 2:02 PM CDT): Chronic problem. Controlled on current Rosuvatatin 40mg. Last lipid panel: 10/30/22 LDL=40, PT=567. Assessment & Plan (09/13/2022 5:14 PM CDT): Chronic, stable Continue current statin therapy Tolerating well Hypertension associated with type 2 diabetes simran litus 08/29/2010 Overview (07/27/2017): Description: Hypertension Assessment & Plan (03/03/2025 9:07 AM FAMILY HEALTH NURSE PRACTITIONER): Chronic problem. Controlled with current Carvedilol 12.5mg bid, losartan 100mg daily Assessment & Plan (11/05/2024 8:53 AM CDT): Chronic problem. Controlled with current Carvedilol 12.5mg bid, losartan 100mg daily Assessment & Plan (06/18/2024 9:55 AM FAMILY HEALTH NURSE PRACTITIONER): Chronic problem. Controlled with current Carvedilol 12.5mg bid, losartan 100mg daily Assessment & Plan (02/20/2024 10:23 AM FAMILY HEALTH NURSE PRACTITIONER): Chronic, well controlled Continue losartan Assessment & Plan (08/23/2023 3:26 PM CDT): Chronic problem. Controlled with current Carvedilol 12.5mg bid, losartan 50mg daily, amlodipine 5mg daily. Assessment & Plan (03/26/2023 1:17 PM FAMILY HEALTH NURSE PRACTITIONER): Chronic, well controlled Continue amlodipine, losartan Assessment & Plan (12/14/2022 2:02 PM CDT): Chronic problem. Controlled with current Carvedilol 12.5mg bid, losartan 50mg daily, amlodipine 5mg daily. Assessment & Plan (09/13/2022 5:13 PM CDT): Chronic, well controlled Continue amlodipine, losartan Atherosclerosis of coronary artery 08/29/2010 Overview (07/27/2017): Description: Coronary Artery Disease Diabetes mellitus 03/22/2006 Assessment & Plan (03/03/2025 9:18 AM FAMILY HEALTH NURSE PRACTITIONER): Chronic problem. A1c not at goal & worsened from 7.4% 11/05/24 to now 7.7%. cannot tolerate Jardiance (yeast infections). Will increase Trulicity from 3mg to 4.5mg at next refill. 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 Current medications: Trulicity 4.5 mg weekly Lantus 25 units every evening UTD DM eye exam (04/11/23 no [facility]MR [facility]). 2023 at [facility], letter sent to get copy of [...] UTD DM eye exam (04/11/23 no DMR [facility]). 2023 at [facility], letter sent to get copy of [...] infection. Assessment & Plan (06/18/2024 10:07 AM FAMILY HEALTH NURSE PRACTITIONER): Chronic problem. A1c increased from 8.3% 02/2024 [...] UTD DM eye exam (03/2023). 2023 at [facility], letter sent to get copy of [...] infection. Assessment & Plan (02/20/2024 10:23 AM FAMILY HEALTH NURSE PRACTITIONER): Chronic, uncontrolled, worsening Hemoglobin A1c 8.3%, goal [...] infection. Assessment & Plan (03/26/2023 1:18 PM FAMILY HEALTH NURSE PRACTITIONER): Chronic, significant improvement in control A1c - [...] units daily DM eye exam 2021 at [facility] in [place]--letter sent to get report. Will update MA/Cr [...] - MCL* Plan Start Date:12/19/2023 Plan Provider:Ole Leroy, DO Linked Problems Chronic lymphoid leukemia, w ithout mention of having achieved remission(204.10) (HCC) Treatment Medications Current Day (Day 1 , Cycle 3 - Planned for 04/24/2024) Next Day (Day 1, Cycle 4 - Planned for 05/22/2024) zanubrutinib (BRUKINSA) zanubrutinib (BR UKINSA) 80 mg capsule zanubrutinib (BRUKINSA) 80 mg capsule Other Current Plans IV Maintenance Therapy Plan* Plan Start Date:01/16/2024 Plan Provider:Ole Leroy, DO Linked Problems Encounter for management of implanted device Treatment Medications No medications scheduled. Past Treatment and Therapy Plans
[2025-04-02 09:52] LABS: Hematocrit 41.4 % (42.0-52.0); Hemoglobin 13.7 g/dL (14.0-18.0)
[2025-04-02 09:57] LABS: INR 1.1; Partial Thromboplastin Time 29.8 Seconds (22.3-36.8); Prothrombin Time 14.0 Seconds (11.1-14.7)
[2025-04-02 10:58] LABS: Anion Gap 6 mmol/L (4-12); Blood Urea Nitrogen 24 mg/dL (9-20); Calcium 9.6 mg/dL (8.4-10.2); Carbon Dioxide 28 mmol/L (22-30); Chloride 105 mmol/L (98-107); Estimated Glomerular Filt Rate 45; Glucose 136 mg/dL (65-110); Potassium 3.8 mmol/L (3.4-5.0); Sodium 139 mmol/L (137-145)
== END 2025-04-02 08:44 | disposition home or self-care (01) ==
LOC: ANHSURGERY 08:47
PROVIDERS: Anesthesiology; PCP Internal Medicine Infectious Disease; Visit Provider Otolaryngology
DX: R94.31 Abnormal electrocardiogram [ECG] [EKG] (principal); C95.90 Leukemia, unspecified not having achieved remission; E11.9 Type 2 diabetes mellitus without complications; I10 Essential (primary) hypertension
CPT/HCPCS: 36415; 80048; 85014; 85018; 85610; 85730; 93005

== ENCOUNTER 2025-04-10 00:22 | Day surgery (SDC) | payer OTHER, SELFPAY ==
--- OUTSIDE RECORDS SUMMARY | 2024-01-25 07:45 | XMS_ITS ---
Author Organization [facility] Address [address] [place] [address] Care Team Providers Care Web Solutions Architect Name Role Phone Kavon Kamran Unavailable [phone] Social History Sex Assigned At : Social History Observation Description Sex Assigned At Male Encounters Encounter Location Date Provider Diagnosis [place] [facility] [address] [facility] 15 [place] [address] 01/25/2024 Kamran Jacobson Chronic kidney disease, stage [...] Name:Kamran Kavon , 04/22/2025 03:00:00 PM, [address]43 [facility], [facility], [place], [address], Progress Notes * CAROL DUNCANDOB: 6 (79 yo M)Acc No.[id number]:01/25/2024 Progress Notes Patient: CAROL MIRANDA Provider: Malini VELÁSQUEZ MD, F.A.C.P, F.A.S.N. :1945 A ge:78 Y S ex:Male Date:01/25/2024 Address:[place] [address] Subjective: * Chief Complaints: * * Medical [...] Treatment: * Billing Information: * Visit Code: 69915 Office Visit, Est Pt., Level 5. * Procedure Codes: * Electronic signature of Brian Jacobson MD on 04/10/2025 at 12:25 AM HOME CARE SCHEDULER Sign off status: Pending * Provider: Malini VELÁSQUEZ MD, F.A.C.P, F.A.S.N. Date: Generated for Printing/Faxing/eTransmitting on: 06/11/2024 12:25 AM HOME CARE SCHEDULER
--- OUTSIDE RECORDS SUMMARY | 2024-03-26 09:15 | XMS_ITS ---
Author Organization [facility] Address [address] [place] [address] Care Team Providers Care Hospital Housekeeper Name Role Phone Jacobson Kamran Unavailable [phone] Social History Sex Assigned At : Social History Observation Description Sex Assigned At Male Encounters Encounter Location Date Provider Diagnosis [place] [facility] 2043 [place] [address] 03/26/2024 Kamran Jacobson Plan Of Treatment Next Appt Details Provider Name:Kamran Jacobson , 04/22/2025 03:00:00 PM, [address], [facility], Progress Notes * CAROL DUNCANDOB: 6 (79 yo M)Acc No.[id number]:03/26/2024 Progress Notes Patient: CAROL MIRANDA Provider: Malini VELÁSQUEZ MD, Esther.Jostin.C.P, F.A.S.N. :1945 A ge:78 Y S ex:Male Date:03/26/2024 Address:[address] [place] [address] Subjective: * Chief Complaints: * * Medical History: Objective: * Vitals: Assessment: Plan: * Treatment: * Billing Information: * Visit Code: * Procedure Codes: * Electronic signature of Brian Jacobson MD on 04/10/2025 at 12:25 AM FINISH SPECIALIST Sign off status: Pending * Provider: Malini VELÁSQUEZ MD, F.Jostin.C.P, F.A.S.N. Date: 05/27/2023 Generated for Printing/Faxing/eTransmitting on: 06/11/2024 12:25 AM FINISH SPECIALIST
--- OUTSIDE RECORDS SUMMARY | 2024-04-25 06:45 | XMS_ITS ---
Author Organization [facility] Address [address] [place] [address] Care Team Providers Care Technology Specialist Name Role Phone Kavon Kamran Unavailable [phone] Social History Sex Assigned At : Social History Observation Description Sex Assigned At Male Encounters Encounter Location Date Provider Diagnosis [facility] [place] [facility] [address] [place] [address] 04/25/2024 Kamran Jacobson Plan Of Treatment Next Appt Details Provider Name:Kamran Singh , 04/22/2025 03:00:00 PM, [address], [facility], Progress Notes * CAROL DUNCANDOB: 6 (79 yo M)Acc No.[id number]:04/25/2024 Patient: CAROL MIRANDA Provider: Malini VELÁSQUEZ MD, F.A.C.P, F.A.S.N. :1945 A ge:78 Y S ex:Male Date:04/25/2024 Address:[address] [place] [address] Subjective: * Chief Complaints: Objective: Assessment: Plan: * Billing Information: * Visit Code: * Procedure Codes: * Electronic signature of Brian Jacobson MD on 04/10/2025 at 12:25 AM PRINT PROJECT MANAGER Sign off status: Pending * Provider: Malini VELÁSQUEZ MD, F.A.C.P, F.A.S.N. Date: 0 04/25/2024 Generated for Printing/Faxing/eTransmitting on: 06/11/2024 12:25 AM PRINT PROJECT MANAGER
--- OUTSIDE RECORDS SUMMARY | 2024-05-14 09:30 | XMS_ITS ---
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 :1945 A ge:78 Y S ex:Male Date:05/14/2024 Address:[address] [place] [address] Subjective: * Chief Complaints: * * Medical History: * Medications: T aking Ciprofloxacin HCl 500 MG Tablet TAKE 1 TABLET BY MOUTH EVERY 12 HOURS , Taking Vitamin D (Ergocalciferol) 1.25 MG (07368 UT) Capsule TAKE 1 CAPSULE BY MOUTH [...] Treatment: * Billing Information: * Visit Code: 62871 Office Visit, Est Pt., Level 4. * Procedure Codes: * Electronic signature of Brian Jacobson MD on 04/10/2025 at 12:24 AM MANAGER PHARMACY Sign off status: Pending * Provider: Malini VELÁSQUEZ MD, F.Jostin.C.P, F.A.S.N. Date: 05/14/2024 Generated for Printing/Fahazelg/eTransmitting on: 1 06/11/2024 12:24 AM MANAGER PHARMACY
--- OUTSIDE RECORDS SUMMARY | 2024-07-09 08:30 | XMS_ITS ---
Author Organization [facility] Office Address [address] [place] [address] Care Team Providers Care Investigations Chief Name Role Phone Kavon Kamran Unavailable [phone] Social History Sex Assigned At : Social History Observation Description Sex Assigned At Male Problems Problem Type SNOMED Code ICD Code Onset Dates Problem Status W/U Status Risk Notes Problem Hypo-osmolality and or hyponatremia (543905750) Hypo-osmolality and hyponatremia (E87.1) Active confirmed Problem Acute bronchitis (59966626) Acute bronchitis, unspecified (J20.9) Active confirmed Encounters Encounter Location Date Provider Diagnosis [place] Office 2043 [facility] 15 [place] [address] 07/09/2024 Kamran Jacobson Chronic kidney disease, stage 3a N18.31 ; Type 2 diabetes mellitus with hyperglycemia E11.65 ; Essential (primary) hypertension I10 ; Chronic obstructive pulmonary disease with (acute) exacerbation J44.1 ; Cyst of kidney, acquired N28.1 ; 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 ; Hypo-osmolality and hyponatremia E87.1 and Acute bronchitis, unspecified J20.9 Assessments Encounter Date Diagnosis (ICD Code) Assessment Notes Treatment Notes Treatment Clinical Notes Section Notes 07/09/2024 Chronic kidney disease, stage 3a (ICD-10 - N18.31) 07/09/2024 Type 2 diabetes mellitus with hyperglycemia (ICD-10 - E11.65) 07/09/2024 Essential (primary) hypertension (ICD-10 - I10) 07/09/2024 Chronic obstructive pulmonary disease with (acute) exacerbation (ICD-10 - J44.1) 07/09/2024 Cyst of kidney, acquired (ICD-10 - N28.1) 07/09/2024 Syndrome of inappropriate secretion of antidiuretic hormone (ICD-10 - E22.2) 07/09/2024 Hypo-osmolality and hyponatremia (ICD-10 - E87.1) 07/09/2024 Acute bronchitis, unspecified (ICD-10 - J20.9) Plan Of Treatment Next Appt Details Provider Name:Kamran Jacobson , 04/22/2025 03:00:00 PM, [address], [address] [address], [place], [address], Progress Notes * CAROL DUNCANDOB: 6 (79 yo M)Acc No.[id number]:07/09/2024 Progress Notes Patient: CAROL MIRANDA Provider: Malini VELÁSQUEZ MD, F.A.C.P, F.A.S.N. :1945 A ge:78 Y S ex:Male Date:07/09/2024 Address:[address] [place] [address] Subjective: * Chief Complaints: * * Medical [...] inappropriate secretion of antidiuretic hormone - E22.2 7 . H ypo-osmolality and hyponatremia - E87.1 8 . A cute bronchitis, unspecified - J20.9 Plan: * Treatment: * Billing Information: * Visit Code: 85431 Office Visit, Est Pt., Level 4. * Procedure Codes: * Electronic signature of Brian Jacobson MD on 04/10/2025 at 12:25 AM FOOT ROENTGENOLOGIST Sign off status: Pending * Provider: Malini VELÁSQUEZ MD, F.Jostin.C.P, F.A.S.N. Date: 0 07/09/2024 Generated for Printing/Faxing/eTransmitting on: 1 06/11/2024 12:25 AM FOOT ROENTGENOLOGIST
--- OUTSIDE RECORDS SUMMARY | 2024-10-08 08:30 | XMS_ITS ---
Author Organization [facility] Office Address [address] [place] [address] Care Team Providers Care Electrical Instrumentation Technician Name Role Phone Kavon Kamran Unavailable [phone] Social History Sex Assigned At : Social History Observation Description Sex Assigned At Male Problems Problem Type SNOMED Code ICD Code Onset Dates Problem Status W/U Status Risk Notes Problem Chronic kidney disease stage 3B (disorder) (007442531) Chronic kidney disease, stage 3b (N18.32) Active confirmed Encounters Encounter Location Date Provider Diagnosis [place] Office 2043 [facility] 15 [place] [address] 10/08/2024 Kamran Jacobson Chronic kidney disease, stage 3b N18.32 ; Type 2 diabetes mellitus with hyperglycemia E11.65 ; Essential (primary) hypertension I10 ; Chronic obstructive pulmonary disease with (acute) exacerbation J44.1 ; Cyst of kidney, acquired N28.1 ; 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 ; Hypo-osmolality and hyponatremia E87.1 and Acute bronchitis, unspecified J20.9 Assessments Encounter Date Diagnosis (ICD Code) Assessment Notes Treatment Notes Treatment Clinical Notes Section Notes 10/08/2024 Chronic kidney disease, stage 3b (ICD-10 - N18.32) 10/08/2024 Type 2 diabetes mellitus with hyperglycemia (ICD-10 - E11.65) 10/08/2024 Essential (primary) hypertension (ICD-10 - I10) 10/08/2024 Chronic obstructive pulmonary disease with (acute) exacerbation (ICD-10 - J44.1) 10/08/2024 Cyst of kidney, acquired (ICD-10 - N28.1) 10/08/2024 Syndrome of inappropriate secretion of antidiuretic hormone (ICD-10 - E22.2) 10/08/2024 Hypo-osmolality and hyponatremia (ICD-10 - E87.1) 10/08/2024 Acute bronchitis, unspecified (ICD-10 - J20.9) Plan Of Treatment Next Appt Details Provider Name:Kamran Jacobson , 04/22/2025 03:00:00 PM, [address], [facility] 15, [place], [address], Progress Notes * CAROL DUNCANDOB: 6 (79 yo M)Acc No.[id number]:10/08/2024 Progress Notes Patient: CAROL MIRANDA Provider: Malini VELÁSQUEZ MD, F.A.C.P, F.A.S.N. :1945 A ge:78 Y S ex:Male Date:10/08/2024 Address:[facility] [place] Subjective: * Chief Complaints: * * Medical History: Objective: * Vitals: Assessment: * Assessment: 1. C hronic kidney disease, stage 3b - N18.32 (Primary) 2 . T ype 2 diabetes [...] Treatment: * Billing Information: * Visit Code: 54598 Office Visit, Est Pt., Level 4. * Procedure Codes: * Electronic signature of Brian Jacobson MD on 04/10/2025 at 12:26 AM SECURITY SERVICES MANAGER Sign off status: Pending * Provider: Malini VELÁSQUEZ MD, F.Jostin.C.P, F.A.S.N. Date: 0 10/08/2024 Generated for Printing/Faxing/eTransmitting on: 1 06/11/2024 12:26 AM SECURITY SERVICES MANAGER
--- OUTSIDE RECORDS SUMMARY | 2024-12-03 09:00 | XMS_ITS ---
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 Encounters Encounter Location Date Provider Diagnosis [place] Office 2043 [facility] 15 [place] [address] 12/03/2024 Kamran Jacobson Chronic kidney disea se, stage 3b N18.32 ; Type 2 diabetes mellitus with hyperglycemia E11.65 ; Essential (primary) hypertension I10 ; Chronic obstructive pulmonary disease with (acute) exacerbation J44.1 ; Cyst of kidney, acquired N28.1 ; 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 ; Hypo-osmolality and hyponatremia E87.1 ; Acute bronchitis, unspecified J20.9 and 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 Assessments Encounter Date Diagnosis (ICD Code) Assessment Notes Treatment Notes Treatment Clinical Notes Section Notes 12/03/2024 Chronic kidney disease, stage 3b (ICD-10 - N18.32) 12/03/2024 Type 2 diabetes mellitus with hyperglycemia (ICD-10 - E11.65) 12/03/2024 Essential (primary) hypertension (ICD-10 - I10) 12/03/2024 Chronic obstructive pulmonary disease with (acute) exacerbation (ICD-10 - J44.1) 12/03/2024 Cyst of kidney, acquired (ICD-10 - N28.1) 12/03/2024 Syndrome of inappropriate secretion of antidiuretic hormone (ICD-10 - E22.2) 12/03/2024 Hypo-osmolality and hyponatremia (ICD-10 - E87.1) 12/03/2024 Acute bronchitis, unspecified (ICD-10 - J20.9) 12/03/2024 Hypervitaminosis D (ICD-10 - E67.3) Plan Of Treatment Next Appt Details Provider Name:Kamran Jacobson , 04/22/2025 03:00:00 PM, [address], [facility] 15, [place], [address], Progress Notes * CAROL DUNCANDOB: 6 (79 yo M)Acc No.[id number]:12/03/2024 Progress Notes Patient: CAROL MIRANDA Provider: Malini VELÁSQUEZ MD, F.A.C.P, F.A.S.N. :1945 A ge:79 Y S ex:Male Date:12/03/2024 Address:[address] [place] [address] Subjective: * Chief Complaints: Objective: Assessment: * Assessment: 1. C hronic kidney [...] . A cute bronchitis, unspecified - J20.9 9 .?Hypervitaminosis D - E67.3 Plan: * Billing Information: * Visit Code: 02768 Office Visit, Est Pt., Level 4. * Procedure Codes: * Electronic signature of Brian Jacobson MD on 04/10/2025 at 12:26 AM BOAT DECKHAND Sign off status: Pending * Provider: Malini VELÁSQUEZ MD, F.A.C.P, F.A.S.N. Date: 0 12/03/2024 Generated for Printing/Faxing/eTransmitting on: 1 06/11/2024 12:26 AM BOAT DECKHAND
--- OUTSIDE RECORDS SUMMARY | 2025-01-21 13:15 | XMS_ITS ---
Author Organization [facility] Address [address] [place] [address] Care Team Providers Care Production Line Technician Name Role Phone Kamran Jacobson Unavailable [phone] Social History Sex Assigned At : Social History Observation Description Sex Assigned At Male Encounters Encounter Location Date Provider Diagnosis [facility] [address] [place] [address] 01/21/2025 Malini Jacobson Plan Of Treatment Next Appt Details Provider Name:Kamran Jacobson , 04/22/2025 03:00:00 PM, 2043 [facility] [address], [address], Progress Notes * CAROL DUNCANDOB: 6 (79 yo M)Acc No.[id number]:01/21/2025 Progress Notes Patient: CAROL MIRANDA Provider: Malini VELÁSQUEZ MD, F.A.C.P, F.A.S.N. :1945 A ge:79 Y S ex:Male Date:01/21/2025 Address:[address] [place] [address] Subjective: * Chief Complaints: Objective: Assessment: Plan: * Billing Information: * Visit Code: * Procedure Codes: * Electronic signature of Brian Jacobson MD on 04/10/2025 at 12:24 AM COATER CARBON PAPER Sign off status: Pending * Provider: Malini VELÁSQUEZ MD, F.A.C.P, F.A.S.N. Date: Generated for Printing/Faxing/eTransmitting on: 06/11/2024 12:24 AM COATER CARBON PAPER
--- OUTSIDE RECORDS SUMMARY | 2025-01-28 12:45 | XMS_ITS ---
Author Organization [facility] Address [address] [place] [address] Care Team Providers Care Hotel Concierge Name Role Phone Jacobson Kamran Unavailable [phone] Social History Sex Assigned At : Social History Observation Description Sex Assigned At Male Encounters Encounter Location Date Provider Diagnosis [facility] [place] [facility] [address] [place] [address] 01/28/2025 Kamran Jacobson Plan Of Treatment Next Appt Details Provider Name:Kamran Jacobson , 04/22/2025 03:00:00 PM, [address], [facility], Progress Notes * CAROL DUNCANDOB: 6 (79 yo M)Acc No.[id number]:01/28/2025 Progress Notes Patient: CAROL MIRANDA Provider: Malini VELÁSQUEZ MD, F.A.C.P, F.A.S.N. :1945 A ge:79 Y S ex:Male Date:01/28/2025 Address:[address] [place] [address] Subjective: * Chief Complaints: Objective: Assessment: Plan: * Billing Information: * Visit Code: * Procedure Codes: * Electronic signature of Brian Jacobson MD on 04/10/2025 at 12:25 AM SPANISH LANGUAGE LECTURER Sign off status: Pending * Provider: Malini VELÁSQUEZ MD, F.A.C.P, F.A.S.N. Date: Generated for Printing/Faxing/eTransmitting on: 06/11/2024 12:25 AM SPANISH LANGUAGE LECTURER
--- OUTSIDE RECORDS SUMMARY | 2025-02-18 10:45 | XMS_ITS ---
Author Organization [facility] Address [address] [address] [place] [address] Care Team Providers Care Coal Getter Name Role Phone Kavon Kamran Unavailable [phone] Social History Sex Assigned At : Social History Observation Description Sex Assigned At Male Problems Problem Type SNOMED Code ICD Code Onset Dates Problem Status W/U Status Risk Notes Problem Renal osteodystrophy (89992826) Renal osteodystrophy (N25.0) Active confirmed Problem Secondary hyperparathyroidism of renal origin (86949991) Secondary hyperparathyroidism of renal origin (N25.81) Active confirmed Encounters Encounter Location Date Provider Diagnosis [place] [facility] [address] [facility] [address] [place] [address] 02/18/2025 Kamran Jacobson Chronic kidney disea se, stage 3b N18.32 ; Type 2 diabetes mellitus with hyperglycemia E11.65 ; Essential (primary) hypertension I10 ; Chronic obstructive pulmonary disease with (acute) exacerbation J44.1 ; Cyst of kidney, acquired N28.1 ; 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 ; Hypo-osmolality and hyponatremia E87.1 ; Acute bronchitis, unspecified J20.9 ; 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 ; Renal osteodystrophy N25.0 and Secondary hyperparathyroidism of renal origin N25.81 Assessments Encounter Date Diagnosis (ICD Code) Assessment Notes Treatment Notes Treatment Clinical Notes Section Notes 02/18/2025 Chronic kidney disea se, stage 3b (ICD-10 - N18.32) 02/18/2025 Type 2 diabetes mellitus with hyperglycemia (ICD-10 - E11.65) 02/18/2025 Essential (primary) hypertension (ICD-10 - I10) 02/18/2025 Chronic obstructive pulmonary disease with (acute) exacerbation (ICD-10 - J44.1) 02/18/2025 Cyst of kidney, acquired (ICD-10 - N28.1) 02/18/2025 Syndrome of inappropriate secretion of antidiuretic hormone (ICD-10 - E22.2) 02/18/2025 Hypo-osmolality and hyponatremia (ICD-10 - E87.1) 02/18/2025 Acute bronchitis, unspecified (ICD-10 - J20.9) 02/18/2025 Hypervitaminosis D (ICD-10 - E67.3) 02/18/2025 Renal osteodystrophy (ICD-10 - N25.0) 02/18/2025 Secondary hyperparathyroidism of renal origin (ICD-10 - N25.81) Plan Of Treatment Next Appt Details Provider Name:Kamran Kavon , 04/22/2025 03:00:00 PM, [facility], [facility], [place], [address], Progress Notes * DUNCAN, CAROLDOB: 6 (79 yo M)Acc No.[id number]:02/18/2025 Progress Notes Patient: CAROL MIRANDA Provider: Malini VELÁSQUEZ MD, F.A.C.P, F.A.S.N. :1945 A ge:79 Y S ex:Male Date:02/18/2025 Address:[address] [place], [place] [id number] Subjective: * Chief Complaints: Objective: Assessment: * [...] A cute bronchitis, unspecified - J20.9 9 . Hypervitaminosis D - E67.3 1 0. R enal osteodystrophy - N25.0 ?11. S econdary hyperparathyroidism of renal origin - N25.81 Plan: * Billing Information: * Visit Code: 96511 Office Visit, Est Pt., Level 4. * Procedure Codes: * Electronic signature of Brian Jacobson MD on 04/10/2025 at 12:24 AM MATHEMATICAL TECHNICIAN Sign off status: Pending * Provider: Malini VELÁSQUEZ MD, F.A.C.P, F.A.S.N. Date: 04/20/2024 Generated for Printing/Faxing/eTransmitting on: 06/11/2024 12:24 AM MATHEMATICAL TECHNICIAN
[2025-03-31 13:14] VITALS: BMI 28.4
--- NOTE | 2025-03-31 13:23 | PC.NURSE ---
[facility] has started construction of its new state of the art ER which will open Spring 2026. With this, we anticipate parking may be a challenge for some our surgical patients and families. Parking spaces are limited but are available for all Surgical, obstetrics, and ER patients sharing this lot. If you arrive and find you are having a hard time finding a parking space, please note that we understand the challenges, please drive around the hospital and park near Hospital Entrance 1. When you enter this entrance, you can ask a volunteer to direct or take you back to the surgical waiting area to check in. We appreciate everyone?s understanding of these expected challenges while we build for your future. Report to the Outpatient Waiting Room, entrance under the green pavilion located off [address], at time ___06:00am____ on date __04/10/25 . Planned Procedure Time: _07:30am .? Time changes happen often and if your time is changed the preop area will call you the afternoon before. - You and your visitor will be asked to self-screen and do not enter if you have any COVID symptoms. Please call surgeon if you need to reschedule. - A mask is optional within the hospital at this time. Patients may have clear liquids (water, carbonated beverages, clear teas, apple juice) until 3 hours prior to surgery with a maximum of 20 ounces. - No food from midnight until time of surgery and no smoking, or chewing tobacco (or any form of nicotine). No chewing gum, candy or mints. (04:30am) Take only the following medications with a SIP of water on the morning of surgery: ____Coreg, Inhalers and Hydrocodone DO NOT STOP ANY OF YOUR OTHER PRESCRIPTION MEDICATIONS PRIOR TO SURGERY EXCEPT THE FOLLOWING Hold all vitamins and supplements for 3 days per anesthesiologist. Medications to discontinue per physician NONE Date to take last dose____NONE Please no make-up, nail german, hairspray, perfume, deodorant, or body powder the day of surgery.? No jewelry (including any body piercings) or valuables the day of surgery, leave them at home.? Please take a shower or bath the night before, or the morning of, surgery with an antibacterial soap.? Wear comfortable, loose fitting clothing.? - Jewelry must be removed prior to entering the operating room.? Rings and piercings that are not removed may be cut off. - The hospital will not accept responsibility for valuables.? - Please leave all valuables, including medications, at home the day of surgery. If you are going home after surgery, a licensed team truck driver must drive you home.? - NO public transportation without another adult if you receive anesthesia. - We recommend that an adult stay with you for 24 hours following discharge. - We also recommend that you do not drive, make important decision, drink alcoholic beverages, or take any drugs that were not prescribed by your health care provider for at least 24 hours after your discharge time. Follow any additional instructions given to you from your surgeon. Telephone instructions given to __Patient and asked if any additional questions and then verbalized understanding. Patient advised to call surgeon office or pre surgery nurse liaison [phone] if any additional questions.
[2025-04-10] VITALS (9 sets, daily range): BP systolic 136–188; BP diastolic 66–89; PULSE 62–67; RESP 12–16; TEMP 36–36.2; O2SAT 97–100; BMI 27.8
--- OUTSIDE RECORDS SUMMARY | 2025-04-10 00:24 | XMS_ITS | Clinical Summary ---
Author Organization [facility] Address [facility] [place] [address] Care Team Providers Care Data Support Specialist Name Role Phone Unavailable Primary Care Provider [...] Comments Blood Pressure 136/74 03/01/2017 1:43 PM HOME HEALTH ASSISTANT Pulse 74 03/01/2017 1:43 PM HOME HEALTH ASSISTANT Temperature - - Respiratory Rate - - Oxygen Saturation - - Inhaled Oxygen Concentration - - Weight 111.6 kg (246 lb 1 oz) 03/01/2017 1:43 PM HOME HEALTH ASSISTANT Height 181 cm (5' 11.25) 03/01/2017 1:43 PM HOME HEALTH ASSISTANT Body Mass Index 34.08 03/01/2017 1:43 PM HOME HEALTH ASSISTANT Plan of Treatment Health Maintenance Due Date [...]
--- OUTSIDE RECORDS SUMMARY | 2025-04-10 00:25 | XMS_ITS | Encounter Summary ---
Author Organization [facility] Address [address] [place] [id number] Care Team Providers Care Brick Shader Name Role Phone Unavailable Primary Care Provider Unavailabl e Encounter Details Date Type Department Care Team (Late st Contact Info) Description 01/29/2003 Abstract [facility] Conversion Md, Generic Conversion, Social History [...]
--- OUTSIDE RECORDS SUMMARY | 2025-04-10 00:25 | XMS_ITS | Clinical Summary ---
Author Organization [facility] Address [address] [place] [address] Care Team Providers Care Home Attendant Name Role Phone Melody Gee NP Unavailable [phone] Bhavesh Marroquin MD Primary Care Provider Kamran Jacobson MD Unavailable [phone] Ole Leroy DO Unavailable [phone] Allergies Active Allergy Reactions Criticality Noted Date [...] hyperglycemia, without long-term current use of insulin ([facility]) 3 x daily 300 each 3 4 Active Atlas Appsuch Verio Flex meter miscIndications :Type 2 diabetes mellitus with hyperglycemia, without long-term current use of insulin ([facility]) One glucometer 1 each 4 Active DiversityDoctorio test strips stripIndication s:Type 2 diabetes mellitus with hyperglycemia, without long-term current use of insulin ([facility]) Check 2-3 x daily 300 each 3 4 Active blood-glucose meter miscIndications :Type 2 diabetes mellitus with hyperglycemia, without long-term current use of insulin ([facility]) One Touch Verio Reflect Use to check [...] hyperglycemia, with long-term current use of insulin ([facility]) ADMINISTER 18 UNITS UNDER THE SKIN EVERY [...] care. Assessment & Plan (03/12/2024 1:24 PM SLING OPERATOR): Continue Spiriva Handihaler once daily Continue Dulera [...] therapy Assessment & Plan (03/12/2024 1:23 PM SLING OPERATOR): He has had ENT evaluation and treatment [...] 12/25/2023 Assessment & Plan (03/12/2024 1:25 PM SLING OPERATOR): Multiple tree-in-bud opacities noted on CT chest [...] Chronic problem. Managed by Dr Jacobson in [place]. Sees him every 2-3 months. Has appt 11/2024. Has restarted him on Jardiance (stopped in past d/t yeast infections). Aware to watch for yeast infection. Nephropathy: On LANDON-I / ARB s : Yes. Losartan 100mg. Last MA: 02/18/24 (34) Last creat/GFR: 09/10/24 GFR=51, CR=1.40. Assessment & Plan (06/18/2024 10:05 AM SLING OPERATOR): Chronic problem. Managed by Dr Jacobson in [place]. Has appt 07/2024 he believes. Sees him every 3 months. Nephropathy: On LANDON-I / ARB s : Yes. Losartan 50mg. Last MA: 02/18/24 (34) Last creat/GFR: 05/14/24 GFR=51, CR=1.40. Assessment & Plan (08/23/2023 3:34 PM CDT): Chronic problem. Managed by Dr Jacobson in [place]. Has appt 09/2023 he believes. Sees him every 3 months. Last creat/GFR: 08/20/23 GFR=52, CR=1.40. Assessment & Plan (03/26/2023 1:17 PM SLING OPERATOR): [facility] Assessment & Plan (12/14/2022 2:07 PM CDT): Chronic problem. Managed by Dr Jacobson in [place]. Chronic lymphoid leukemia, w ithout mention of having achieved remission(204.10) 12/13/2017 Hyperlipidemia associated with type 2 diabetes m adenike 08/29/2010 Overview (07/27/2017): Description: Hyperlipidemia Assessment & Plan (03/03/2025 9:07 AM SLING OPERATOR): Chronic problem. Controlled on current Rosuvatatin 40mg. Last lipid panel: 11/05/24 LDL=30, FK=081. Assessment & Plan (11/05/2024 8:52 AM CDT): Chronic problem. Controlled on current Rosuvatatin 40mg. Last lipid panel: 11/14/23 LDL=47, TG=75. Will update labs. Does not mychart. Verified phone #/address to contact re: results. Assessment & Plan (06/18/2024 9:55 AM SLING OPERATOR): Chronic problem. Controlled on current Rosuvatatin 40mg. Last lipid panel: 11/14/23 LDL=47, TG=75. Assessment & Plan (02/20/2024 10:21 AM SLING OPERATOR): Continue statin therapy Assessment & Plan (08/23/2023 3:26 PM CDT): Chronic problem. Controlled on current Rosuvatatin 40mg. Last lipid panel: 10/30/22 LDL=40, KV=935. Assessment & Plan (03/26/2023 1:16 PM SLING OPERATOR): Chronic, stable Continue current statin therapy Tolerating well Assessment & Plan (12/14/2022 2:02 PM CDT): Chronic problem. Controlled on current Rosuvatatin 40mg. Last lipid panel: 10/30/22 LDL=40, NS=842. Assessment & Plan (09/13/2022 5:14 PM CDT): Chronic, stable Continue current statin therapy Tolerating well Hypertension associated with type 2 diabetes simran litus 08/29/2010 Overview (07/27/2017): Description: Hypertension Assessment & Plan (03/03/2025 9:07 AM SLING OPERATOR): Chronic problem. Controlled with current Carvedilol 12.5mg bid, losartan 100mg daily Assessment & Plan (11/05/2024 8:53 AM CDT): Chronic problem. Controlled with current Carvedilol 12.5mg bid, losartan 100mg daily Assessment & Plan (06/18/2024 9:55 AM SLING OPERATOR): Chronic problem. Controlled with current Carvedilol 12.5mg bid, losartan 100mg daily Assessment & Plan (02/20/2024 10:23 AM SLING OPERATOR): Chronic, well controlled Continue losartan Assessment & Plan (08/23/2023 3:26 PM CDT): Chronic problem. Controlled with current Carvedilol 12.5mg bid, losartan 50mg daily, amlodipine 5mg daily. Assessment & Plan (03/26/2023 1:17 PM SLING OPERATOR): Chronic, well controlled Continue amlodipine, losartan Assessment & Plan (12/14/2022 2:02 PM CDT): Chronic problem. Controlled with current Carvedilol 12.5mg bid, losartan 50mg daily, amlodipine 5mg daily. Assessment & Plan (09/13/2022 5:13 PM CDT): Chronic, well controlled Continue amlodipine, losartan Atherosclerosis of coronary artery 08/29/2010 Overview (07/27/2017): Description: Coronary Artery Disease Diabetes mellitus 03/22/2006 Assessment & Plan (03/03/2025 9:18 AM SLING OPERATOR): Chronic problem. A1c not at goal & worsened from 7.4% 11/05/24 to now 7.7%. cannot tolerate Jardiance (yeast infections). Will increase Trulicity from 3mg to 4.5mg at next refill. Aware to decrease Lantus by 2 units weekly if he starts to have lows overnight/shagger. Current medications: Trulicity 4.5 mg weekly Lantus 25 units every evening UTD DM eye exam (04/11/[address] [facility]). 2023 at [place] [facility], letter sent to get copy of [...] resolve. UTD DM eye exam (04/11/[address] [facility] [employer] [facility] 2023 at [email or web address], letter sent to get copy of report. [...] infection. Assessment & Plan (06/18/2024 10:07 AM SLING OPERATOR): Chronic problem. A1c increased from 8.3% 02/2024 [...] UTD DM eye exam (03/2023). 2023 at [place] [employer], letter sent to get copy of report. [...] infection. Assessment & Plan (02/20/2024 10:23 AM SLING OPERATOR): Chronic, uncontrolled, worsening Hemoglobin A1c 8.3%, goal [...] infection. Assessment & Plan (03/26/2023 1:18 PM SLING OPERATOR): Chronic, significant improvement in control A1c - [...] units daily DM eye exam 2021 at [facility] in [place]--letter sent to get report. Will update MA/Cr [...] Department Care Team Description 03/26/2025 9:45 AM SLING OPERATOR Office Visit [facility] Medicine Physicians [facility] Oncology [address] [place] [phone] Ole Leroy, Chronic lymphoid leukemia, without mention of having achieved remission(204.10) (HCC) (Primary Dx) 03/26/2025 9:15 AM SLING OPERATOR Lab [facility] at [address] [address] Chronic lymphoid leukemia, without mention of having achieved remission(204.10) (HCC) 03/23/2025 Orders Only [facility] [address] [address] Chapin Aquino MD 03/11/2025 9:48 AM SLING OPERATOR - 03/11/2025 11:59 PM SLING OPERATOR Hospital Encounter [facility] [address] [place] [address] Chronic lymphoid leukemia, without mention of having achieved remission(204.10) (HCC) Discharge Disposition: Discharge to home or self care 03/03/2025 9:00 AM SLING OPERATOR Office Visit [facility] Diabetes and Endocrinology [address] [place] [phone] Marylou Felipe, APPLICATIONS SCIENTIST Type 2 diabetes mellitus with hyperglycemia, with long-term current use of insulin (HCC) (Primary Dx); Hypertension associated with type 2 diabetes mellitus (HCC); Hyperlipidemia associated with type 2 diabetes mellitus (HCC) 02/05/2025 Telephone [facility] Medicine Physicians [facility] Oncology [address] [place], [place] [address], [place] [address] Sandra Berkowitz CMA 02/02/2025 10:00 AM CDT Office Visit [facility] Pulmonary at [address] [place] [address] Melody Gee, SASCHA Hoarseness (Primary [...] drink = 0.6 oz pur e alcohol) [facility] Utilities Answer Date Recorded In the past 12 months has [employer], gas, oil, or water company threatened to [...] often do you attend chur ch or gnosticist services? Never 08/06/2024 Do you belong to any clubs o r organizations such as sikh groups, unions, fraternal or athletic groups, or [...] any time in the past 12 m [facility], were you homeless or living in a chcf (including now)? No 08/06/2024 AUDIT-C Answer Date [...] on file Legal Sex Male 2:07 AM SLING OPERATOR Gender Identity Not on file Sexual Orientation Not on file Last Filed Vital Signs Vital Sign Reading Time Taken Comments Blood Pressure 110/70 03/26/2025 9:41 AM SLING OPERATOR Pulse 67 03/26/2025 9:41 AM SLING OPERATOR Temperature 36.3 C (97.3 F) 03/26/2025 9:41 AM SLING OPERATOR Respiratory Rate 18 03/26/2025 9:41 AM SLING OPERATOR Oxygen Saturation 99% 03/26/2025 9:41 AM SLING OPERATOR Inhaled Oxygen Concentration - - Weight 90.3 kg (199 lb 1.2 oz) 03/26/2025 9:41 A M SLING OPERATOR Height 177.8 cm (5' 10) 03/03/2025 8:41 AM SLING OPERATOR Body Mass Index 28.56 03/03/2025 8:41 AM SLING OPERATOR Plan of Treatment Health Maintenance Due Date [...] Diagnosis Comments EGFR Routine 03/26/2025 9:27 AM SLING OPERATOR Chronic lymphoid leukemia, without mention of having achieved remission(204.10) (HCC) DIFFERENTIAL AUTO Routine 03/26/2025 9:2 7 AM SLING OPERATOR Chronic lymphoid leukemia, without mention of having achieved remission(204.10) (HCC) CBC WITH AUTO DIFFERENTIAL Routine 03/26/2025 9:27 AM SLING OPERATOR Chronic lymphoid leukemia, without mention of having achieved remission(204.10) (HCC) COMPREHENSIVE METABOLIC PANEL Routine 03/26/2025 9:27 AM SLING OPERATOR Chronic lymphoid leukemia, without mention of having achieved remission(204.10) (HCC) IGG Routine 03/26/2025 9:27 AM SLING OPERATOR Chronic lymphoid leukemia, without mention of having achieved remission(204.10) (HCC) LACTATE DEHYDROGENASE Routine 03/26/2025 9:27 AM SLING OPERATOR Chronic lymphoid leukemia, without mention of having achieved remission(204.10) (HCC) ERYTHROCYTE SEDIMENTATION RATE Routine 03/26/2025 9:27 AM SLING OPERATOR Chronic lymphoid leukemia, without mention of having achieved remission(204.10) (HCC) CT CHEST ABDOMEN PELVIS W CONTRAST Schedule Routine, Read Routine (OP Routine) 03/11/2025 10:55 AM SLING OPERATOR Chronic lymphoid leukemia, without mention of having achieved remission(204.10) (HCC) POCT CREATININE FOR CONTRAST EVALUATION Routine 03/11/2025 10:28 AM SLING OPERATOR POCT HEMOGLOBIN A1C Routine 03/03/2025 8 :51 AM SLING OPERATOR Type 2 diabetes mellitus with hyperglycemia, with long-term current use of insulin (HCC) POCT GLUCOSE Routine 03/03/2025 8:46 AM SLING OPERATOR Type 2 diabetes mellitus with hyperglycemia, with [...] Results * (ABNORMAL) eGFR (03/26/2025 9:27 AM SLING OPERATOR) eGFR 35(L) >=60 mL/min/1. 73 m2 Comment: [...] was last reviewed 2021. Testing performed by: [facility], [address] [place] [address], [place]., [address] Blood 03/26/2025 9:27 AM SLING OPERATOR 03/26/2025 9:31 AM SLING OPERATOR Radhames Barker APPLICATIONS SCIENTIST LAB BLOOD ORDERABLES Final Result [facility] [address] [facility] [place] [address] * (ABNORMAL) Differential, auto (03/26/2025 9:27 AM SLING OPERATOR) Neutrophil abs 4.32 1.50 - 6.50 K/cumm Comment:Testing performed by : [address] [address] Imm gran abs 0.03 0.00 - 0.10 K/cumm [facility] Comment:Testing performed by : [address] [address] Lymphocyte abs 10.08(H) 0.80 - 3.30 K/cumm [facility] Comment:Testing performed by : [address] [address] Monocyte abs 2.14(H) 0.20 - 0.80 K/cumm [facility] Comment:Testing performed by : [address] [address] Eosinophil abs 0.11 0.00 - 0.50 K/cumm [facility] Comment:Testing performed by : [address] [address] Basophil abs 0.04 0.00 - 0.10 K/cumm [facility] Comment:Testing performed by : [address] [address] Neutrophil pct 25.8 % [facility] Comment: Interpretive Data Percent cell count reference ranges are not reported, since discordance with absolute values may lead to misinterpretation of CBC data. Current Interpretive Data was last revised on 2017. Testing performed by: [address] [address] Imm gran pct 0.2 % [facility] Comment: Interpretive Data Percent cell count reference ranges are not reported, since discordance with absolute values may lead to misinterpretation of CBC data. Current Interpretive Data was last revised on 2017. Testing performed by: [address] [address] Lymphocyte pct 60.3 % [facility] Comment: Interpretive Data Percent cell count reference ranges are not reported, since discordance with absolute values may lead to misinterpretation of CBC data. Current Interpretive Data was last revised on 2017. Testing performed by: [address] [address] Monocyte pct 12.8 % [facility] Comment: Interpretive Data Percent cell count reference ranges are not reported, since discordance with absolute values may lead to misinterpretation of CBC data. Current Interpretive Data was last revised on 2017. Testing performed by: [address] [address] Eosinophil pct 0.7 % [facility] Comment: Interpretive Data Percent cell count reference ranges are not reported, since discordance with absolute values may lead to misinterpretation of CBC data. Current Interpretive Data was last revised on 2017. Testing performed by: [address] [address] Basophil pct 0.2 % [facility] Comment: Interpretive Data Percent cell count reference ranges are not reported, since discordance with absolute values may lead to misinterpretation of CBC data. Current Interpretive Data was last revised on 2017. Testing performed by: [address] [address] Blood 03/26/2025 9:27 AM SLING OPERATOR 03/26/2025 9:31 AM SLING OPERATOR us Radhames Barker NP LAB BLOOD ORDERABLES Final Result [facility] [address] [facility] Department of Laboratories [place], [place] [id number] * (ABNORMAL) CBC with auto differential (03/26/2025 9:27 AM SLING OPERATOR) WBC 16.72(H) 3.80 - 9.90 K/cumm Comment:Testing performed by : [address] [address] Hgb 13.6 13.0 - 17.5 g/dL [facility] Comment:Testing performed by : [address], [address] Hct 40.4 38.9 - 50.3 % [facility] Comment:Testing performed by : [address] [address] Plt 85(L) 150 - 400 K/cumm [facility] Comment:Testing performed by : [address], [address] MPV 11.5 9.1 - 12.3 fL [facility] Comment:Testing performed by : [address], [address] RBC 4.51 4.30 - 5.80 M/cumm [facility] Comment:Testing performed by : [address], [address] MCV 89.6 81.3 - 96.4 fL [facility] Comment:Testing performed by : [address], [address] MCH 30.2 27.1 - 33.3 pg [facility] Comment:Testing performed by : [address], [address] MCHC 33.7 32.3 - 35.7 g/dL [facility] Comment:Testing performed by : [address], [address] RDW CV 13.6 11.1 - 14.9 % [facility] Comment:Testing performed by : [address], [address] RDW SD 44.3 35.7 - 48.1 fL [facility] Comment:Testing performed by : [address] [address] NRBC abs 0.00 0.00 - 0.01 K/cumm [facility] Comment:Testing performed by : [address], [address] ANC Prelim 4.32 1.50 - 6.50 K/cumm [facility] Comment: Interpretive Data The rapid ANC is a preliminary automated count and may vary from the final ANC (Neut Abs) reported in the WBC differential that follows. Current interpretive data was last revised 2024. Testing performed by: [address] [address] Morphologic Screen Results confirmed by manual morphology review. [facility] Comment:Testing performed by : [address] [address] Blood 03/26/2025 9:27 AM SLING OPERATOR 03/26/2025 9:31 AM SLING OPERATOR Radhames Barker NP LAB BLOOD ORDERABLES Edited Result - Final Performing Organization Address City/[facility]/ZIP Co de Phone Number [facility] [place] [address] * Erythrocyte sedimentation rate (03/26/2025 9:27 AM SLING OPERATOR) Erythrocyte sedimentation rate 4 1 - 20 mm/hr Comment:Testing performed by : [address] [address] Blood 03/26/2025 9:27 AM SLING OPERATOR 03/26/2025 11:46 AM SLING OPERATOR Radhames Barker NP LAB BLOOD ORDERABLES Final Result [facility] [address] [place] [address] * Lactate dehydrogenase (LD) (03/26/2025 9:27 AM SLING OPERATOR) Lactate dehydrogenase (LDH) 124 100 - 250 Units/L Comment:Testing performed by : [address] [address] Blood 03/26/2025 9:27 AM SLING OPERATOR 03/26/2025 9:31 AM SLING OPERATOR Radhames Wendy Oz APPLICATIONS SCIENTIST LAB BLOOD ORDERABLES Final Result [facility] [address] [place] [address] * IgG (03/26/2025 9:27 AM SLING OPERATOR) Pathologist [facility] Immunoglobulin G 813 700 - 1,600 mg/dL Blood 03/26/2025 9:27 AM SLING OPERATOR 03/26/2025 12:29 PM SLING OPERATOR Radhames Barker NP LAB BLOOD ORDERABLES Final Result Performing Organization Address [facility] Co de Phone Number [facility] [address] [place] [address] * (ABNORMAL) Comprehensive metabolic panel (03/26/2025 9:27 AM SLING OPERATOR) [facility] Sodium 142 135 - 145 mmol/L Comment:Testing performed by : [address] [address] Potassium, pl 4.7 3.3 - 4.9 mmol/L [facility] Comment:Testing performed by : [address] [address] Chloride 106 97 - 110 mmol/L [facility] Comment:Testing performed by : [address] [address] CO2 25 22 - 32 mmol/L [facility] Comment:Testing performed by : [address] [address] Anion gap 11 2 - 15 mmol/L [facility] Comment:Testing performed by : [address] [address] BUN 25 6 - 25 mg/dL [facility] Comment:Testing performed by : [address] [address] Creatinine 1.90(H) 0.80 - 1.30 mg/dL [facility] Comment:Testing performed by : [address] [address] Glucose 165 70 - 199 mg/dL [facility] [...] was last revised 2022. Testing performed by: [address] [address] Calcium 9.7 8.5 - 10.3 mg/dL [facility] Comment:Testing performed by : [address] [address] Bilirubin, total 0.7 0.1 - 1.2 mg/dL [facility] Comment:Testing performed by : [address] [address] Protein, pl 6.6 6.5 - 8.5 g/dL [facility] Comment:Testing performed by : [address] [address] Albumin 4.4 3.5 - 5.0 g/dL [facility] Comment:Testing performed by : [address] [address] Alk phos 117 40 - 130 Units/L [facility] Comment:Testing performed by : [address] [address] ALT 25 7 - 55 Units/L [facility] Comment:Testing performed by : [address] [address] AST 29 10 - 50 Units/L [facility] Comment:Testing performed by : [address] [address] Blood 03/26/2025 9:27 AM SLING OPERATOR 03/26/2025 9:31 AM SLING OPERATOR us Radhames Barker APPLICATIONS SCIENTIST LAB BLOOD ORDERABLES Final Result [facility] [address] [facility] [place] [address] * CT Chest Abdomen Pelvis W Contrast (03/11/2025 10:55 AM SLING OPERATOR) Anatomical Region Laterality Modality Body N/A Computed Tomogra phy 03/18/2025 10:3 5 AM SLING OPERATOR Impressions 03/18/2025 10:35 AM SLING OPERATOR Chest: 1. Scattered areas of tree-in-bud nodularity [...] Maia Irving M.D. Narrative 03/18/2025 10:35 AM SLING OPERATOR EXAMINATION: CT CHEST ABDOMEN PELVIS W CONTRAST [...] this area was not included in the [id number] on prior examinations. No free intraperitoneal air. [...] this area was not included in the [id number] on prior examinations. No free intraperitoneal air. [...] by: Maia Irving M.D. us Radhames Barker APPLICATIONS SCIENTIST IMG CT PROCEDURES Fi nal Result * (ABNORMAL) POCT creatinine for contrast evaluation (03/11/2025 10:28 AM SLING OPERATOR) Creatinine POC 1.40(H) 0.80 - 1.30 mg/dL Comment:Testing performed by : [facility], [address] [place] [address]., [address] Blood 03/11/2025 10:2 8 AM SLING OPERATOR 03/11/2025 10:28 AM SLING OPERATOR us Ole Leroy DO POINT OF CARE TEST ORDERABLE S Final Result [facility] [address] [facility] Department [place] [address] * (ABNORMAL) POCT hemoglobin A1c (03/03/2025 8:51 AM SLING OPERATOR) Hemoglobin A1C, POC 7.7(A) 4.0 - 5.6 % Blood 03/03/2025 8:51 AM SLING OPERATOR us Marylou Felipe APPLICATIONS SCIENTIST POINT OF CARE TEST ORDERA BLES Final Result * (ABNORMAL) POCT glucose (03/03/2025 8:46 AM SLING OPERATOR) Glucose Blood, POC 165 Normal Fasting 70 - 100, Random <200 mg/dL Blood 03/03/2025 8:46 AM SLING OPERATOR us Marylou Felipe NP POINT OF CARE TEST ORDERA BLES Final Result * (ABNORMAL) Albumin Creatinine Ratio, Urine (11/05/2024 12:00 PM CDT) Albumin Ur 25.5 mg/L Comment: Interpretive Data No reference range established. Current interpretive data was last revised 2018. Creatinine Ur 65.4 mg/dL [facility] Comment: Interpretive Data No reference range established. Current interpretive data was last revised 2018. Albumin Creatinine Ratio, Ur 39(H) 1 - 29 mg/g [facility] Urine 11/05/2024 12:0 0 PM CDT 11/05/2024 8:37 PM CDT us Marylou Felipe NP LAB URINE ORDERABLES Ileana l Result [facility] [address] [facility] [place] [address] * (ABNORMAL) Lipid panel (11/05/2024 12:00 PM [...] BLOOD ORDERABLES Ileana l Result [facility] [address] [place] [address] * DIABETES EYE EXAM (08/19/2024 3:00 PM CDT) Historical Provider HEALTH MAINTENANCE Final Result from Last 3 Months or Most Recently Relevant to Health Maintenance Insurance [facility] Advance Directives For more information, please contact: [phone] * Full Code (Latest Code Status on File) Date Activated Date Inactivated Comments 08/14/2024 9:24 AM 08/15/2024 4:47 AM * Full Code Date Activated Date Inactivated Comments 08/05/2024 7:47 PM 08/07/2024 4:35 PM Care Teams Home Attendant Relationship Specialty Start Date End Date Bhavesh Marroquin MD [address] [place] [address] PCP - General Internal Medicine 09/05/22 Melody Gee NP Nurse Practitioner Nurse Practitioner 09/10/20 [place] [address] [address] Consulting Physician Nephrology 09/05/22 Ole Leroy DO [address] [place] [address] MEDICAL ONCOLOGY, [address] [address] Medical Oncologist/Hot Pond Operator Hematology and Oncology 02/19/23
--- OUTSIDE RECORDS SUMMARY | 2025-04-10 00:25 | XMS_ITS ---
Author Organization [facility] Address [address] [place] [address] Care Team Providers Care Board Liner Operator Name Role Phone Melody Gee NP Unavailable [phone] Bhavesh Marroquin MD Primary Care Provider Kamran Jacobson MD Unavailable [phone] Ole Leroy DO Unavailable [phone] Active Problems Problem Noted Date Diagnosed Date [...] care. Assessment & Plan (03/12/2024 1:24 PM COOK BOX FILLER): Continue Spiriva Handihaler once daily Continue Dulera [...] therapy Assessment & Plan (03/12/2024 1:23 PM COOK BOX FILLER): He has had ENT evaluation and treatment [...] 12/25/2023 Assessment & Plan (03/12/2024 1:25 PM COOK BOX FILLER): Multiple tree-in-bud opacities noted on CT chest [...] Chronic problem. Managed by Dr Jacobson in [place]. Sees him every 2-3 months. Has appt 11/2024. Has restarted him on Jardiance (stopped in past d/t yeast infections). Aware to watch for yeast infection. Nephropathy: On LANDON-I / ARB s : Yes. Losartan 100mg. Last MA: 02/18/24 (34) Last creat/GFR: 09/10/24 GFR=51, CR=1.40. Assessment & Plan (06/18/2024 10:05 AM COOK BOX FILLER): Chronic problem. Managed by Dr Jacobson in [place]. Has appt 07/2024 he believes. Sees him every 3 months. Nephropathy: On LANDON-I / ARB s : Yes. Losartan 50mg. Last MA: 02/18/24 (34) Last creat/GFR: 05/14/24 GFR=51, CR=1.40. Assessment & Plan (08/23/2023 3:34 PM CDT): Chronic problem. Managed by Dr Jacobson in [place]. Has appt 09/2023 he believes. Sees him every 3 months. Last creat/GFR: 08/20/23 GFR=52, CR=1.40. Assessment & Plan (03/26/2023 1:17 PM COOK BOX FILLER): On [facility] Assessment & Plan (12/14/2022 2:07 PM CDT): Chronic problem. Managed by Dr Jacobson in [place]. Chronic lymphoid leukemia, w ithout mention of having achieved remission(204.10) 12/13/2017 Hyperlipidemia associated with type 2 diabetes m adenike 08/29/2010 Overview (07/27/2017): Description: Hyperlipidemia Assessment & Plan (03/03/2025 9:07 AM COOK BOX FILLER): Chronic problem. Controlled on current Rosuvatatin 40mg. Last lipid panel: 11/05/24 LDL=30, ON=660. Assessment & Plan (11/05/2024 8:52 AM CDT): Chronic problem. Controlled on current Rosuvatatin 40mg. Last lipid panel: 11/14/23 LDL=47, TG=75. Will update labs. Does not mychart. Verified phone #/address to contact re: results. Assessment & Plan (06/18/2024 9:55 AM COOK BOX FILLER): Chronic problem. Controlled on current Rosuvatatin 40mg. Last lipid panel: 11/14/23 LDL=47, TG=75. Assessment & Plan (02/20/2024 10:21 AM COOK BOX FILLER): Continue statin therapy Assessment & Plan (08/23/2023 3:26 PM CDT): Chronic problem. Controlled on current Rosuvatatin 40mg. Last lipid panel: 10/30/22 LDL=40, MF=420. Assessment & Plan (03/26/2023 1:16 PM COOK BOX FILLER): Chronic, stable Continue current statin therapy Tolerating well Assessment & Plan (12/14/2022 2:02 PM CDT): Chronic problem. Controlled on current Rosuvatatin 40mg. Last lipid panel: 10/30/22 LDL=40, EU=045. Assessment & Plan (09/13/2022 5:14 PM CDT): Chronic, stable Continue current statin therapy Tolerating well Hypertension associated with type 2 diabetes simran litus 08/29/2010 Overview (07/27/2017): Description: Hypertension Assessment & Plan (03/03/2025 9:07 AM COOK BOX FILLER): Chronic problem. Controlled with current Carvedilol 12.5mg bid, losartan 100mg daily Assessment & Plan (11/05/2024 8:53 AM CDT): Chronic problem. Controlled with current Carvedilol 12.5mg bid, losartan 100mg daily Assessment & Plan (06/18/2024 9:55 AM COOK BOX FILLER): Chronic problem. Controlled with current Carvedilol 12.5mg bid, losartan 100mg daily Assessment & Plan (02/20/2024 10:23 AM COOK BOX FILLER): Chronic, well controlled Continue losartan Assessment & Plan (08/23/2023 3:26 PM CDT): Chronic problem. Controlled with current Carvedilol 12.5mg bid, losartan 50mg daily, amlodipine 5mg daily. Assessment & Plan (03/26/2023 1:17 PM COOK BOX FILLER): Chronic, well controlled Continue amlodipine, losartan Assessment & Plan (12/14/2022 2:02 PM CDT): Chronic problem. Controlled with current Carvedilol 12.5mg bid, losartan 50mg daily, amlodipine 5mg daily. Assessment & Plan (09/13/2022 5:13 PM CDT): Chronic, well controlled Continue amlodipine, losartan Atherosclerosis of coronary artery 08/29/2010 Overview (07/27/2017): Description: Coronary Artery Disease Diabetes mellitus 03/22/2006 Assessment & Plan (03/03/2025 9:18 AM COOK BOX FILLER): Chronic problem. A1c not at goal & worsened from 7.4% 11/05/24 to now 7.7%. cannot tolerate Jardiance (yeast infections). Will increase Trulicity from 3mg to 4.5mg at next refill. 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 Current medications: Trulicity 4.5 mg weekly Lantus 25 units every evening UTD DM eye exam (04/11/23 no [facility]). 2023 at [facility], letter sent to get copy of [...] UTD DM eye exam (04/11/23 no [facility]). 2023 at [facility], letter sent to get copy of [...] infection. Assessment & Plan (06/18/2024 10:07 AM COOK BOX FILLER): Chronic problem. A1c increased from 8.3% 02/2024 [...] UTD DM eye exam (03/2023). 2023 at [facility], letter sent to get copy of [...] infection. Assessment & Plan (02/20/2024 10:23 AM COOK BOX FILLER): Chronic, uncontrolled, worsening Hemoglobin A1c 8.3%, goal [...] infection. Assessment & Plan (03/26/2023 1:18 PM COOK BOX FILLER): Chronic, significant improvement in control A1c - [...] units daily DM eye exam 2021 at [facility] in [place]--letter sent to get report. Will update MA/Cr [...]
--- OUTSIDE RECORDS SUMMARY | 2025-04-10 00:25 | XMS_ITS | Patient Health Record ---
Author Organization [facility] Address [address] [place] [address] Care Team Providers Care Film Producer Name Role Phone Kamran Jacobson Unavailable [phone] Reason For Referral No Information Medications Medication SIG (Take, Route, Frequency, Duration) Notes Start Date End Date Status Vitamin D (Ergocalciferol) 1.25 MG (66535 UT) TAKE 1 CAPSULE BY MOUTH 1 [...] Hyperglycemia due to type 2 diabetes mellitus (218795955473279) Type 2 diabetes mellitus with hyperglycemia (E11.65) Active confirmed Problem Syndrome of inappropriate secretion of antidiuretic hormone (50868042) 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 confirmed Problem Hypervitaminosis D (25090046) 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) Active confirmed Problem Hypo-osmolality and or hyponatremia (118458701) Hypo-osmolality and hyponatremia (E87.1) Active confirmed Problem Essential hypertension (31604144) Essential (primary) hypertension (I10) Active confirmed Problem Acute bronchitis (42467782) Acute bronchitis, unspecified (J20.9) Active confirmed Problem Acute exacerbation o f chronic obstructive airways disease (767875730) Chronic obstructive pulmonary disease with (acute) exacerbation (J44.1) Active confirmed Problem Renal osteodystrophy (93076921) Renal osteodystrophy (N25.0) Active confirmed Problem Secondary hyperparathyroidism of renal origin (64698006) Secondary hyperparathyroidism of renal origin (N25.81) Active confirmed Problem Acquired renal cysti c disease (007692382) Cyst of kidney, 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) Active confirmed Problem Chronic kidney disease stage 3B (disorder) (239202298) Chronic kidney disease, stage 3b (N18.32) Active confirmed Encounters Encounter Location Date Provider Diagnosis [facility] [address] [address] 05/14/2024 Kamran Jacobson Chronic kidney disea se, stage 3a N18.31 ; Type 2 diabetes mellitus with hyperglycemia E11.65 ; Essential (primary) hypertension I10 ; Chronic obstructive pulmonary disease with (acute) exacerbation J44.1 ; Cyst of kidney, acquired N28.1 and 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 [facility] [address] [address] 07/09/2024 Kamran Jacobson Chronic kidney disea se, stage 3a N18.31 ; Type 2 diabetes mellitus with hyperglycemia E11.65 ; Essential (primary) hypertension I10 ; Chronic obstructive pulmonary disease with (acute) exacerbation J44.1 ; Cyst of kidney, acquired N28.1 ; 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 ; Hypo-osmolality and hyponatremia E87.1 and Acute bronchitis, unspecified J20.9 [facility] [address] [address] 10/08/2024 Kamran Jacobson Chronic kidney disea se, stage 3b N18.32 ; Type 2 diabetes mellitus with hyperglycemia E11.65 ; Essential (primary) hypertension I10 ; Chronic obstructive pulmonary disease with (acute) exacerbation J44.1 ; Cyst of kidney, acquired N28.1 ; 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 ; Hypo-osmolality and hyponatremia E87.1 and Acute bronchitis, unspecified J20.9 [facility] [address] [address] 12/03/2024 Kamran Jacobson Chronic kidney disea se, stage 3b N18.32 ; Type 2 diabetes mellitus with hyperglycemia E11.65 ; Essential (primary) hypertension I10 ; Chronic obstructive pulmonary disease with (acute) exacerbation J44.1 ; Cyst of kidney, acquired N28.1 ; 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 ; Hypo-osmolality and hyponatremia E87.1 ; Acute bronchitis, unspecified J20.9 and 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 [facility] [address] [address] 02/18/2025 Kamran Jacobson Chronic kidney disea se, [...] and Secondary hyperparathyroidism of renal origin N25.81 [facility] [address] [address] 11/14/2024 Kamran Jacobson [facility] [address] [address] 12/17/2024 Kamran Jacobson Assessments Encounter Date Diagnosis [...] Name:Kamran Jacobson , 04/22/2025 03:00:00 PM, [address] [facility] [address], [address],
--- OUTSIDE RECORDS SUMMARY | 2025-04-10 00:25 | XMS_ITS | Encounter Summary ---
Author Organization [facility] Address [facility] [place] [address] Care Team Providers Care Utilization Management Um Nurse Name Role Phone Unavailable Primary Care Provider Unavailabl e Encounter Details Date Type Department Care Team (Late st Contact Info) Description 09/25/2017 Abstract [facility] Nilson Ambrose MD [address] [phone] Social History Tobacco Use Types Packs/Day Years [...] CDT Oct 04, 2017 Jase Ross [address] [place] [address] Dear Jase Ross, Thank you for choosing [facility] for your health care needs. We appreciate the opportunity to help you maintain your well being. You recently had a urine screening. Your results came back as expected. Please remember to follow up every 3 months for medications as per the controlled substance contract. If you have any questions please feel free to call the officeat [phone], Option #3 or Option #1 to make an appointment to discuss these results. Respectfully Yours, Electronically Signed by: Nilson Ambrose MD Cc: Patients Medical Record ECT ASST documented in this encounter Plan of Treatment Not on file documented as of this encounter Visit Diagnoses Not on filedocumented in this encounter
--- OUTSIDE RECORDS SUMMARY | 2025-04-10 00:25 | XMS_ITS | Continuity of Care Document ---
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 [employer] variances may occur. Despite proofreading, typographical errors may occur. Occasional wrong-word or '[id number]-p-[id number]' substitutions may have occurred due to the inherent limitations of voice recording. Read the chart carefully and recognize, using context, where substitutions have occurred. [email or web address] Not available 03/23/2025 09:52:13 Plan of Treatment Reminders Order Date Submit Date Provider Last Modified By Organization Details Last Modified Time Details Appointments Establish ed Patient 10 2025 01:10P M Jose Andrews DPM Not available Not available Not available Lab None recorded. Referral None recorded. Procedures None recorded. Surgeries None recorded. Imaging None recorded. Medication Orders None recorded. Patient TargetsNo targets recorded. Patient InstructionsNo instructions recorded. Reason for Referral None Reported. Problems Name Problem SNOMED Code Status Onset Date Resolution Date Notes Provider Name and Address Organization Details Recorded Time Obstructiv e sleep apnea syndrome 19649607 Active 2016 Not Available [facility] 3 04:51:34 Moderate chronic obstructiv e pulmonary disease 955929369 Active 2016 Not Available [facility] 3 04:51:33 Body mass index 30+ - obesity 737877919 Active 2016 Not Available [facility] 3 04:51:32 Hypertensi ve disorder 23770569 Active 2016 Not Available [facility] 3 04:51:33 Pleural effusion 92231736 Active 2016 Not Available [facility] 3 04:51:33 Diabetes mellitus 92331102 Active 2018 Not Available [facility] 3 04:51:34 Chronic hoarseness 0051686417030 Active 2020 Not Available [facility] 3 04:51:32 Dry skin 85151085 Active 2020 Not Available [facility] 3 04:51:32 Multiple nodules of lung 655870651 Active 2020 Not Available [facility] 3 04:51:33 Abdominal pain 44575515 Active 2021 Not Available [facility] 3 04:51:32 Gastroesop hageal reflux disease without esophagiti s 450583199 Active 2021 Not Available [facility] 3 04:51:32 Round atelectasi s 480004422 Active 2021 Not Available [facility] 3 04:51:33 Dyspnea on exertion 37135125 Active 2021 Not Available [facility] 3 04:51:33 Candidiasi s of mouth 60299308 Active 2021 Not Available [facility] 3 04:51:34 Acute exacerbati on of chronic obstructiv e pulmonary disease 749967583 Active 2021 Not Available [facility] 3 04:51:32 Immunoglob ulins outside reference range 223920128 Active 2021 Not Available [facility] 3 04:51:32 Hammer toe 806665275 Active 2022 Not Available [facility] 3 04:51:32 Unable to cut own toenails 239854143 Active 2022 Not Available [facility] 3 04:51:33 Onychomyco sis of toenails 405469891 Active 2022 Not Available [facility] 3 04:51:33 Callosity on toe 466332408 Active 2022 Jose Andrews DPM [address], [place], [address] , [employer] [facility] 3 18:51:07 Lung mass 960235082 Active 2022 Melody Gee, [facility] [address], [place], [address] , [facility] 3 10:09:04 Nenzel of toe 24578044 Active 2022 Jose Andrews DPM [address], [place], [address] , [facility] 3 18:14:03 Acquired right mallet toe 2438871447266 9109 Active 2022 Jose Andrews DPM [address], [place], [address] , [employer] 3 18:14:17 Hammer toe 062475753 Active 2022 Jose Andrews DPM [address], [place], [address] , [employer] [facility] 3 15:39:23 Foot callus 028584949 Active 2023 Jose Andrews DPM [address], [place], [address] , [employer] [facility] 4 16:44:07 Pain in right foot 9950153958360 07 Active 2023 Jose Andrews DPM [address], [place], [address] , [employer] [facility] 4 13:42:07 Diabetic peripheral neuropathy 526130824 Active 2023 Jose Andrews DPM [address], [place], [address] , [employer] [facility] 4 15:16:08 Dystrophia unguium 23335188 Active 2023 Jose Andrews DPM [address], [place], [address] , [employer] 4 14:23:57 Peripheral arterial occlusive disease 732196230 Active 2024 Jose Andrews DPM [address], [place], [address] , [employer] 5 12:52:13 Bunion 930325127 Active 2024 Jose Andrews DPM [address], [place], [address] , [employer] 5 12:52:53 Fissure in skin 74958429 Active 2024 Jose Andrews DPM [address], [place], [address] , [employer] 5 12:52:57 Callus of heel 034795633 Active 2024 Jose Andrews DPM [address], [place], [address] , [employer] 5 12:53:01 Diabetic on insulin 076433182 Active 2024 Jose Andrews DPM [address], [place], [address] , [employer] 5 12:56:45 Skin eschar 964528626 Active 2024 Jose Andrews DPM [address], [place], [address] , [employer] 5 12:27:12 Tear of skin 562763203 Active 2024 Jose Andrews DPM [address], [place], [address] , [employer] 5 11:18:10 Notes:Medical History: Anxie ty Mild COPD Obesity Hypertension Hyperlipidemia T2DM HELIO Onychomycosis Problem Notes None recorded. Procedures Surgical History Date Name Laterality Status Provider Name and Address Organization Details Recorded Time 5 Nail Debridement completed Jose Andrews DPM [address], [place], [address], [facility] [employer] [facility] [employer] 03/23/2025 09:51:36 5 Nail Debridement completed Jose Andrews DPM [address], [place], [address], [employer] [facility] [employer] 12/18/2024 17:20:27 5 Wound Care-Podiatry completed Mio Good RN [place] [employer] [facility] [employer] 08/20/2024 10:48:48 5 Wound Care-Podiatry completed Jose Andrews DPM [address], [place], [address], [employer] [facility] [employer] 08/04/2024 09:19:44 5 Wound Care-Podiatry completed Marylou Valentin [employer] [facility] [employer] 07/16/2024 12:29:45 5 Nail Debridement completed Jose Andrews DPM [address], [place], [address], [employer] [facility] [employer] 07/01/2024 13:08:57 4 Nail Debridement completed Jose Andrews DPM [address], [place], [address], [employer] [facility] [employer] 04/01/2024 14:22:57 4 Nail Debridement completed Jose Andrews DPM [address], [place], [address], [employer] [facility] [employer] 01/01/2024 15:13:19 4 Callus Debridement, One completed Jose Andrews DPM [address], [place], [address], [employer] [facility] 10/04/2023 13:42:31 4 Nail Debridement completed Jose Andrews DPM [address], [place], [address], [employer] [facility] [employer] [facility] 07/11/2023 14:16:03 3 Nail Debridement completed Jose Andrews DPM [address], [place], [address], [employer] [facility] [employer] [facility] 04/03/2023 15:38:33 3 Callus Debridement, One completed Jose Andrews DPM [address], [place], [address], [employer] [facility] [employer] [facility] 04/03/2023 15:38:16 3 Callus Debridement, One completed KATJA Ros[address], [place], [address], [employer] [facility] [employer] [facility] 01/30/2023 16:19:42 3 Callus Debridement, One completed Jose Andrews DPM [address], [place], [address], [employer] [facility] [employer] [facility] 01/02/2023 16:37:08 3 Nail Debridement completed KATJA Ros[address], [place], [address], [employer] [facility] [employer] [facility] 12/12/2022 18:13:54 3 Blank Procedure Note completed KATJA Rosas [address], [place], [address], [facility] [employer] [facility] [employer] [facility] 12/12/2022 18:12:45 3 Callus Debridement 2-[address], [place], [address], [facility] [employer] [facility] [employer] 12/12/2022 18:13:43 3 Nail Debridement completed KATJA Ros[address], [place], [address], [facility] [employer] [facility] 09/12/2022 18:50:26 3 Callus Debridement, One completed Jose Andrews DPM [address], [place], [address], [facility] [employer] [facility] 09/12/2022 18:50:19 Imaging Results None recorded. Procedure Notes None recorded. Medical Equipment None Reported. Allergies Allergen ID Allergen Name Allergen Category Reaction Reaction Severity Criticality Documentation Date Start Date Code Code System Note Provider Name and Address Organization Details Recorded Time 71515 empaglifl ozin medicatio n other Not available Not available 03/19/20252024 54301 53 RxNorm Yeast infec tion Not Available burden - External Data Service - prod 5 07:37:16 7834 codeine medicatio n Not available Not available Not available 06/14/2022 2670 RxNorm Not Available [facility] 3 05:03:07 Medications Name Sig Start Date [...] Not Available Not Available No t Available finasteri de 5 mg tablet TAKE 1 TABLET BY [...] completed Not Available Not Available Not Available [employer] HFA 08/18 completed Not Available [...] Available Not Available Not Available [employer] Pentips Plus 31 gauge x 1/4 needle USE DIRECTED EVERY DAY active Not Available Not Available No t Available Aerospan 80 mcg/actua tion HFA aerosol [...] Available TRUEplus Pen Needle 31 gauge x 5/16 USE DAILY active Not Available Not Available No t Available OneTouch Ultra2 Meter USE TO CHECK BLOOD GLUCOSE DIRECTED BY AIDA FOX R active Not Available Not Available No t [...] Not Available Not Available No t Available Trulicity 4.5 mg/0.5 mL subcutane ous pen injector ADMINIST ER 4.5 MG UNDER THE SKIN 1 TIME A WEEK active Not Available Not Available No t Available Vitals Date Recorded Body height Body mass index (BMI) Body weight Heart rate Respiratory rate Oxygen saturation Systolic And Diastolic Provider Name and Address Organization Details Last Updated DateTime 5 177.8 cm 27.8 kg/m2 25213.9 2 g 67 /min 14 /min 98 % 148/75 mm[Hg] Clare Pittman [place] [employer] 5 16:43:13 Social History Question Answer Notes LastModified by Organizat ion Details LastModified Time Tobacco Smoking Status Former Smoker Not Available [facility] 06/14/2022 04:12:32 What Is Your Level Of Caffeine Consumption? Moderate Every Am Has Coffee [id number] Information not available 06/14/2022 In The 14 Days Before Symptom Onset, Have You Had Close Contact With A Laboratory-confir med COVID-19 While That Case Was Ill? No [id number] Information not available 06/14/2022 In The 14 Days Before Symptom Onset, Have You Had Close Contact With A Person Who Is Under Investigation For COVID-19 While That Person Was Ill? No [id number] Information not available 06/14/2022 When Did You Quit Smoking? 16+yearssinc elastcigaret te [id number] Information not available 06/14/2022 Do You Have Any Pets? Yes Dog That Lives Inside The Home [id number] Information not available 06/14/2022 At What Age Did You Start Smoking Tobacco? 13 [id number] Information not available 06/14/2022 How Many Years Have You Smoked Tobacco? 20 [id number] Information not available 06/14/2022 Have You Recently Traveled Abroad? No [id number] Information not available 06/14/2022 Sex: Unknown Functional Status Question Answer Note LastModified by Organizat ion Details LastModified Time Do you use any illicit or recreational drugs? No [id number] Information not available 06/14/2022 Do you or have you ever used any other forms of tobacco or nicotine? No [id number] Information not available 06/14/2022 What is your level of alcohol consumption? None quit over 20 or more years [id number] Information not available 06/14/2022 Mental Status [...] HAVE YOU BEEN HOSPITALIZED OR SEEN IN [facility] IN THE PAST YEAR ? N [...] 100 mcg/0.5mL dose or 50 mcg/0.25mL dose completed Not Available [facility] 06/14/2022 05:02:37 COVID-19, mRNA, LNP-S, PF, 100 mcg/0.5mL dose or 50 mcg/0.25mL dose 1 completed Not Available [facility] 06/14/2022 05:02:37 Influenza, high-dose, trivalent, PF 8 completed Not Available [facility] 06/14/2022 05:02:37 pneumococcal polysaccharide PPV23 7 completed Not Available [facility] 06/14/2022 05:02:37 Past Encounters Encounter ID Performer Location Encounter Start Date Encounter Closed Date Diagnosis/Indication Diagnosis SNOMED-CT Code Diagnosis ICD10 Code Diagnosis IMO Codes Diagnosis Note [id number] Jose Andrews DPM [facility] [place] [address] [facility] [address] [place] [address] 03/19/2025 16:35:57 03/26/2025 16:24:47 Diabetes mellitus 54714350 E11.40 B35.1 Z74.1 M79.676 ChronicCon tinue PCP recommenda tion- glucose controlcon tinue diabetic shoe gearcheck feet daily for wounds infection at present seek medical attention immediatel y Bunion [id number] M21.61 9 continue conservati ve options if the continuati on of wounds and high pressure recur then he will need surgery as per belowpossi ble silver bunionecto my to reduce prominence , pending arterial ultrasound Diabetic p eripheral neuropathy 402129966 E11.40 continue supportive shoe gearas above Dystrophia unguium 65238 009 L60.3 nails debrided without incident 1 through 10 Health Concerns Section Related Observation LastModified by Organization Detai ls LastModified Time None Recorded Concern Status LastModified by Organization Details LastModified Time None Recorded Payers Encounter Date Sequence Insurance Name Policy Number Policy Lester Covered Member ID Lester Member ID Guarantor Name 03/19/2025 1 [facility] (MEDICAID HMO) [id number] Jase Ross [id number] Jase Ross Notes Date Note Type Note Provider Name and Address Organization Details Recorded Time 03/19/2025 text/html Patient is a 79-year-old male diabetic who returns the office for diabetic foot care. Patient overall is doing well he continues to check his feet daily he has diabetic shoes. Patient denies any wounds or infection of the foot. Patient denies any painful calluses. Patient does have significant bunions bilaterally but due to his age he is not a surgical candidate we will continue conservative offloading and monitor for wounds. Patient states he continues have thickened toenails and is unable to cut them would like to have them cut. Patient does have pain to the toenails. Jose Andrews DPM [address] [facility] [address], [place], [address], [place] [facility] [employer] [facility] 03/23/2025 09:53:07
--- OUTSIDE RECORDS SUMMARY | 2025-04-10 00:25 | XMS_ITS | Data Portability ---
Author Organization [facility] [employer] [facility], Main Office Address [address] [place] [address] Care Team Providers Care Typesetter Perforator Operator Name Role Phone YASMANI BRANCH Primary Care Provider [phone] YASMANI BRANCH Referring Provider [phone] Assessment Encounter Date Assessment Date Assessment LastModified by Organization Details LastModified Time 07/23/2024 07/23/2024 This note is dictated and transcribed by [employer]. Signaling Design Engineer variances may occur. Despite proofreading, typographical errors may occur. Occasional wrong-word or 'gpfkq-r-acoo' substitutions may have occurred due to the inherent limitations of voice recording. Read the chart carefully and recognize, using context, where substitutions have occurred. Not available 08/04/2024 09:19:56 07/28/2024 07/28/2024 This note is dictated and transcribed by [employer]. Signaling Design Engineer variances may occur. Despite proofreading, typographical errors may occur. Occasional wrong-word or 'ugtyp-y-ncia' substitutions may have occurred due to the inherent limitations of voice recording. Read the chart carefully and recognize, using context, where substitutions have occurred. Not available 07/28/2024 11:17:32 08/20/2024 08/20/2024 This note is dictated and transcribed by [employer]. Signaling Design Engineer variances may occur. Despite proofreading, typographical errors may occur. Occasional wrong-word or 'eiqcb-l-clmm' substitutions may have occurred due to the inherent limitations of voice recording. Read the chart carefully and recognize, using context, where substitutions have occurred. Not available 08/20/2024 12:06:35 12/18/2024 12/18/2024 This note is dictated and transcribed by [employer]. Signaling Design Engineer variances may occur. Despite proofreading, typographical errors may occur. Occasional wrong-word or 'ackjl-k-ldpa' substitutions may have occurred due to the inherent limitations of voice recording. Read the chart carefully and recognize, using context, where substitutions have occurred. Not available 12/18/2024 17:23:36 03/19/2025 03/19/2025 This note is dictated and transcribed by [employer]. Signaling Design Engineer variances may occur. Despite proofreading, typographical errors may occur. Occasional wrong-word or 'canqz-g-qrzg' substitutions may have occurred due to the inherent limitations of voice recording. Read the chart carefully and recognize, using context, where substitutions have occurred. Not available 03/23/2025 09:52:13 Plan of Treatment [...] view - podiatry read- bunion 2024 025 [email or web address] [facility] (Radiology), [address] [place], [address], 08/05/2024 19:06:23 Medication Orders None recorded. Patient TargetsNo targets recorded. Patient InstructionsNo instructions recorded. Reason for Referral None Reported. Results Created Date Observation Date Name Description Value Unit Range Abnormal Flag Note LastModifiedBy Organization Detail LastModifiedTime 08/06/19 25 07/29/2024 US, duple x, arter ial, lower extre mity, compl ete No observ ation record ed. [facility] (Radiology) [address] [place], [address], 08/05/2024 12:12:00 Result Notes None recorded. Problems Name Problem SNOMED Code Status Onset Date Resolution Date Notes Provider Name and Address Organization Details Recorded Time Obstructiv e sleep apnea syndrome 02176776 Active 2016 Not Available [facility] 3 04:51:34 Moderate chronic obstructiv e pulmonary disease 796905907 Active 2016 Not Available [facility] 3 04:51:33 Body mass index 30+ - obesity 636296034 Active 2016 Not Available [facility] 3 04:51:32 Hypertensi ve disorder 36998483 Active 2016 Not Available [facility] 3 04:51:33 Pleural effusion 83552436 Active 2016 Not Available [facility] 3 04:51:33 Diabetes mellitus 14014181 Active 2018 Not Available [facility] 3 04:51:34 Chronic hoarseness 4184056627659 Active 2020 Not Available [facility] 3 04:51:32 Dry skin 73103232 Active 2020 Not Available [facility] 3 04:51:32 Multiple nodules of lung 098317655 Active 2020 Not Available [facility] 3 04:51:33 Abdominal pain 02816028 Active 2021 Not Available [facility] 3 04:51:32 Gastroesop hageal reflux disease without esophagiti s 977341183 Active 2021 Not Available [facility] 3 04:51:32 Round atelectasi s 724924424 Active 2021 Not Available [facility] 3 04:51:33 Dyspnea on exertion 35004389 Active 2021 Not Available [facility] 3 04:51:33 Candidiasi s of mouth 79055658 Active 2021 Not Available [facility] 3 04:51:34 Acute exacerbati on of chronic obstructiv e pulmonary disease 632758646 Active 2021 Not Available [facility] 3 04:51:32 Immunoglob ulins outside reference range 049446735 Active 2021 Not Available [facility] 3 04:51:32 Hammer toe 693507842 Active 2022 Not Available [facility] 3 04:51:32 Unable to cut own toenails 072697873 Active 2022 Not Available [facility] 3 04:51:33 Onychomyco sis of toenails 720380129 Active 2022 Not Available [facility] 3 04:51:33 Callosity on toe 451103222 Active 2022 Jose Andrews DPM [address], [place], [address] , [employer] 3 18:51:07 Lung mass 065092958 Active 2022 Melody Gee, [facility] [address], [place], [address] , [facility] 3 10:09:04 Dassel of toe 09778461 Active 2022 Jose Andrews DPM [address], [place], [address] , [facility] 3 18:14:03 Acquired right mallet toe 2848351104746 9109 Active 2022 Jose Andrews DPM [address], [place], [address] , [facility] 3 18:14:17 Hammer toe 634297659 Active 2022 Jose Andrews DPM [address], [place], [address] , [facility] 3 15:39:23 Foot callus 072058833 Active 2023 Jose Andrews DPM [address], [place], [address] , [facility] 4 16:44:07 Pain in right foot 8403308611569 07 Active 2023 Jose Andrews DPM [address], [place], [address] , [facility] 4 13:42:07 Diabetic peripheral neuropathy 076926307 Active 2023 Jose Andrews DPM [address], [place], [address] , [facility] 4 15:16:08 Dystrophia unguium 91734535 Active 2023 Jose Andrews DPM [address], [place], [address] , [facility] 4 14:23:57 Peripheral arterial occlusive disease 234522145 Active 2024 Jose Andrews DPM [address], [place], [address] , [facility] 5 12:52:13 Bunion 225533804 Active 2024 Jose Andrews DPM [address], [place], [address] , [facility] 5 12:52:53 Fissure in skin 56905100 Active 2024 Jose Andrews DPM [address], [place], [address] , [facility] 5 12:52:57 Callus of heel 809055457 Active 2024 Jose Andrews DPM [address], [place], [address] , [facility] 5 12:53:01 Diabetic on insulin 136142588 Active 2024 Jose Andrews DPM [address], [place], [address] , [facility] 5 12:56:45 Skin eschar 749367240 Active 2024 Jose Andrews DPM [address], [place], [address] , [facility] 5 12:27:12 Tear of skin 552134548 Active 2024 Jose Andrews DPM [address], [place], [address] , [facility] 5 11:18:10 Notes:Medical History: Anxie ty Mild COPD Obesity Hypertension Hyperlipidemia T2DM HELIO Onychomycosis Problem Notes None recorded. Procedures Surgical History Date Name Laterality Status Provider Name and Address Organization Details Recorded Time 5 Nail Debridement completed Jose Andrews DPM [address], [place], [address], [email or web address] [facility] [employer] 03/23/2025 09:51:36 5 Nail Debridement completed Jose Andrews DPM [address], [place], [address], [employer] [facility] [employer] 12/18/2024 17:20:27 5 Wound Care-Podiatry completed Mio Good RN NM [employer] [facility] [employer] 08/20/2024 10:48:48 5 Wound Care-Podiatry completed Jose Andrews DPM [address], [place], [address], [email or web address] [facility] [employer] 08/04/2024 09:19:44 5 Wound Care-Podiatry completed Marylou Valentin [email or web address] [facility] [email or web address] 07/16/2024 12:29:45 5 Nail Debridement completed KATJA Ros[address], [address], [place], [address], [employer] [facility] [employer] 07/01/2024 13:08:57 4 Nail Debridement completed Jose Andrews DPM [address], [place], [address], [employer] [facility] [employer] 04/01/2024 14:22:57 4 Nail Debridement completed Jose Andrews DPM [address], [place], [address], [employer] [facility] [employer] 01/01/2024 15:13:19 4 Callus Debridement, One completed Jose Andrews DPM [address], [place], [address], [facility] [employer] [facility] 10/04/2023 13:42:31 4 Nail Debridement completed Jose Andrews DPM [address], [place], [address], [employer] [place] [employer] [facility] 07/11/2023 14:16:03 3 Nail Debridement completed KATJA Ros[address], [place], [address], [employer] [place] [employer] [facility] 04/03/2023 15:38:33 3 Callus Debridement, One completed Jose Andrews DPM [address], [place], [address], [facility] [employer] [facility] 04/03/2023 15:38:16 3 Callus Debridement, One completed Jose Andrews DPM [address], [place], [address], [email or web address] [facility] 01/30/2023 16:19:42 3 Callus Debridement, One completed Jose Andrews DPM [address], [place], [address], [facility] [employer] [facility] 01/02/2023 16:37:08 3 Nail Debridement completed Jose Andrews DPM [address], [place], [address], [email or web address] [facility] 12/12/2022 18:13:54 3 Blank Procedure Note completed KATJA Rosas [address], [place], [address], [facility] 12/12/2022 18:12:45 3 Callus Debridement 2-4 completed Jose Andrews DPM [address], [place], [address], [facility] [employer] [facility] 12/12/2022 18:13:43 3 Nail Debridement completed Jose Andrews DPM [address], [place], [address], [facility] [employer] [facility] 09/12/2022 18:50:26 3 Callus Debridement, One completed Jose Andrews DPM [address], [place], [address], [facility] [employer] [facility] 09/12/2022 18:50:19 Imaging Results None recorded. Procedure Notes None recorded. Medical Equipment None Reported. Allergies Allergen ID Allergen Name Allergen Category Reaction Reaction Severity Criticality Documentation Date Start Date Code Code System Note Provider Name and Address Organization Details Recorded Time 68336 empaglifl ozin medicatio n other Not available Not available 03/19/20252024 68096 53 RxNorm Yeast infec tion Not Available [employer] - External Data Service - prod 5 07:37:16 7834 codeine medicatio n Not available Not available Not available 06/14/2022 2670 RxNorm Not Available [facility] 3 05:03:07 Medications Name Sig Start [...] Not Available Not Available No t Available Lant Solostar U-100 Insulin 100 unit/mL (3 mL) [...] rate Respiratory rate Body temperature Oxygen saturation Body mass index (BMI) Body weight Systolic And Diastolic Provider Name and Address Organization Details Last Updated DateTime 5 177.8 cm 66 /min 17 /min 97.8 [degF] 100 % 27.8 kg/m2 30379.9 2 g 155/90 mm[Hg] Marylou Valentin [facility] [employer] 5 14:07:04 Date Recorded Body height Body mass index (BMI) Body weight Heart rate Respiratory rate Oxygen saturation Systolic And Diastolic Provider Name and Address Organization Details Last Updated DateTime 5 177.8 cm 27.8 kg/m2 62035.9 2 g 75 /min 14 /min 98 % 136/69 mm[Hg] Clare Schulz [facility] [employer] 5 10:30:06 Date Recorded Body height Body mass index (BMI) Body weight Heart rate Respiratory rate Body temperature Oxygen saturation Systolic And Diastolic Provider Name and Address Organization Details Last Updated DateTime 5 177.8 cm 27.8 kg/m2 62561.9 2 g 66 /min 18 /min 98.6 [degF] 99 % 131/73 mm[Hg] Marylou Valentin [facility] 5 10:35:20 Date Recorded Body height Body mass index (BMI) Body weight Heart rate Respiratory rate Oxygen saturation Systolic And Diastolic Provider Name and Address Organization Details Last Updated DateTime 5 177.8 cm 27.8 kg/m2 59923.9 2 g 67 /min 14 /min 98 % 135/72 mm[Hg] Clare Schulz [facility] 5 16:50:19 Date Recorded Body height Body mass index (BMI) Body weight Heart rate Respiratory rate Oxygen saturation Systolic And Diastolic Provider Name and Address Organization Details Last Updated DateTime 5 177.8 cm 27.8 kg/m2 82194.9 2 g 67 /min 14 /min 98 % 148/75 mm[Hg] Clare Schulz [facility] 5 16:43:13 Social History Question Answer Notes LastModified by Organizat ion Details LastModified Time Tobacco Smoking Status Former Smoker Not Available [facility] 06/14/2022 04:12:32 What Is Your Level Of Caffeine Consumption? Moderate Every Am Has Coffee [id number] Information not available 06/14/2022 In The 14 Days Before Symptom Onset, Have You Had Close Contact With A Laboratory-confir med COVID-19 While That Case Was Ill? No [id number] Information not available 06/14/2022 In The 14 Days Before Symptom Onset, Have You Had Close Contact With A Person Who Is Under Investigation For COVID-19 While That Person Was Ill? No [id number] Information not available 06/14/2022 When Did You Quit Smoking? 16+yearssinc elastcigaret te [id number] Information not available 06/14/2022 Do You Have Any Pets? Yes Dog That Lives Inside The Home [id number].[id number] Information not available 06/14/2022 At What Age Did You Start Smoking Tobacco? 13 [id number] Information not available 06/14/2022 How Many Years Have You Smoked Tobacco? 20 [id number] 4784 Information not available 06/14/2022 Have You Recently Traveled Abroad? No [id number].[id number] Information not available 06/14/2022 Sex: Unknown Functional Status Question Answer Note LastModified by Organizat ion Details LastModified Time Do you use any illicit or recreational drugs? No [id number] Information not available 06/14/2022 Do you or have you ever used any other forms of tobacco or nicotine? No [id number] 026 Information not available 06/14/2022 What is your level of alcohol consumption? None quit over 20 or more years [id number] 026 Information not available 06/14/2022 Mental Status None recorded. Family History Nothing Reported Notes:Both parents Medical History Condition Response MRSA N SLEEP APNEA N ALLERGIES/HAYFEVER N LUNG DISEASE/DISORDER N HISTORY OF DRUG ABUSE N INSOMNIA N COPD Y RADIATION / CHEMOTHERAPY N HIGH CHOLESTEROL / HYPERLIPIDEMIA N HYPERTHYROIDISM N BLOOD DISEASES N EAR OR HEARING PROBLEMS N HYPOTHYROIDISM N SHINGLES N DEPRESSION (INCLUDING POST ) N HAVE YOU BEEN HOSPITALIZED OR SEEN IN [facility] ER IN THE PAST YEAR ? N STROKE/TIA N ULCERS N OBESITY N ANEURYSM N HISTORY WITH COMPLICATIONS WITH ANESTHES IA ? N USE OF BLOOD THINNERS N NO SIGNIFICANT PAST MEDICAL HISTORY N DIABETES, TYPE Y PARATHYROID DISEASE N ENT N SEASONAL ALLERGIES N HEARTBURN / REFLUX N HEPATITIS / LIVER DISEASE N SLEEP DISORDER N SEIZURES/EPILEPSY N HEADACHES/MIGRAINES N CHF N PACEMAKER N DIZZINESS N HEART DISEASE/HEART PROBLEMS N AIDS/HIV N FRACTURES N HYPERTENSION N CANCER: SPECIFY N TOURETTE'S N BLOOD TRANSFUSION N ANEMIA/BLOOD DISORDER N ANESTHESIA COMPLICATIONS N CHRONIC EAR INFECTIONS N TUBERCULOSIS N Immunizations Vaccine Type Date Status Note Provider Nam e and Address Organization Details Recorded Time COVID-19, mRNA, LNP-S, PF, 100 mcg/0.5mL dose or 50 mcg/0.25mL dose 1 completed Not Available [facility] 06/14/2022 05:02:37 COVID-19, mRNA, LNP-S, PF, 100 mcg/0.5mL dose or 50 mcg/0.25mL dose 1 completed Not Available [facility] 06/14/2022 05:02:37 Influenza, high-dose, trivalent, PF 8 completed Not Available [facility] 06/14/2022 05:02:37 pneumococcal polysaccharide PPV23 7 completed Not Available [facility] 06/14/2022 05:02:37 Past Encounters Encounter ID Performer Location Encounter Start Date Encounter Closed Date Diagnosis/Indication Diagnosis SNOMED-CT Code Diagnosis ICD10 Code Diagnosis IMO Codes Diagnosis Note [id number] [facility] [place] [address] [place] [address] 08/18/2020 00:00:00 08/18/2020 14:14:01 [id number] [facility] _ATHENA_M IGRATION_ DEFAULT_1 _1 , 10/01/2020 00:00:00 10/01/2020 10:29:45 [id number] [facility] [place] [address] [place] [address] 12/16/2020 00:00:00 12/16/2020 12:51:02 [id number] [facility] _ATHENA_M IGRATION_ DEFAULT_1 _1 , 12/17/2020 00:00:00 12/17/2020 11:13:29 [id number] [facility] _ATHENA_M IGRATION_ DEFAULT_1 _1 , 03/18/2021 00:00:00 03/22/2021 10:42:24 [id number] [facility] _ATHENA_M IGRATION_ DEFAULT_1 _1 , 03/25/2021 00:00:00 03/25/2021 10:33:36 [id number] [facility] [place] [address] [place] [address] 04/12/2021 00:00:00 04/12/2021 12:17:37 [id number] [facility] [place] [address] [place] [address] 06/15/2021 00:00:00 06/15/2021 12:44:29 [id number] [facility] [place] [address] [place] [address] 07/27/2021 00:00:00 07/27/2021 12:54:44 [id number] [facility] _ATHENA_M IGRATION_ DEFAULT_1 _1 , 08/05/2021 00:00:00 08/07/2021 15:56:54 [id number] CANDY Enriquez [facility] [place] [address] [place] [address] 10/26/2021 00:00:00 10/26/2021 13:26:06 [id number] [facility] _ATHENA_M IGRATION_ DEFAULT_1 _1 , 11/04/2021 00:00:00 11/07/2021 08:45:10 [id number] [facility] _ATHENA_M IGRATION_ DEFAULT_1 _1 , 02/03/2022 00:00:00 02/05/2022 13:57:41 [id number] CANDY Enriquez [facility] [place] [address] [address] 03/01/2022 00:00:00 03/01/2022 12:51:30 [id number] Jose Andrews DPM [facility] [place] [address] [place] [address] 06/13/2022 00:00:00 06/13/2022 17:23:26 [id number] Jose Andrews DPM [facility] [place] [address] [place] [address] 09/12/2022 17:14:49 09/13/2022 11:11:17 Diabetes mellitus 04630874 E11.40 B35.1 Z74.1 M79.676 Continue PCP recommenda tionContin ue supportive shoe gearFollow -up in 3 months for diabeticfo ot exam Onychomyco sis of toenails 988634790 B35.1 Nails 1 through 10 were debrided with sharp mechanical debridemen t without incident. Nails were debrided and greater than 50% length and thickness where needed. Callosity on toe 20090724 01 L84 right 4th toeDebride d without incidentCo ntinue conservati ve management denies surgeryFol low-up 3 months Hammer toe 120874475 M20 .40 continue conservati ve management Educated on treatment optionsFol low-up in 3 months Unable to cut own toenails 496110062 Z74.1 secondary to COPD [id number] Melody Gee, [employer] [place] [address] [place] [address] 09/27/2022 12:13:30 09/27/2022 12:57:51 Multiple nodules of lung 415576923 R91.8 PET-CT negative [address] chest 09/2021 with significan t improvemen t in size of nodulesPla n to repeat CT chest in one year and with changes in conditionD ue 09/2022 - ordered today Moderate c hronic obstructive pulmonary disease 913560487 J44.9 PFT 09/13/17 with FEV1:FVC ratio 62%.FEV1 [...] walk test 07/2022 - WNL Chronic hoarseness 18711 96693 105 R49.0 Follows with ENT, also with lesion previously removed from vocal cord Obstructiv e sleep apnea syndrome 45973756 G47.33 Not corrected, uninterest ed in troublesho oting.I have offered home study optionHe is aware of the risks of uncorrecte d HUMPHREY, including [id number] Jose Andrews DPM [facility] Podiat[facility] [place] [address] [place] [address] 12/12/2022 17:42:43 12/12/2022 18:21:37 Hammer toe 160962829 M20.40 continue conservati ve management - worse to the left 2nd 3rdEducate d on treatment optionsFol low-up in 3 months [place]el of toe 08640900 L84 bilateral 4th toesdebrid ed without incidentfa iled conservati ve offloading with silicone toe sleeve Acquired r ight mallet toe 3888557891 4350169 M20.5X1 right 4th toeflexor tenotomy performed todaywound care instructio ns reviewed with the patientFol low up in 3 weeks Onychomyco sis of toenails 443747258 B35.1 Nails 1 through 10 were debrided with sharp mechanical debridemen t without incident. Nails were debrided and greater than 50% length and thickness where needed. Unable to cut own toenails 755229010 Z74.1 secondary to COPD [id number] Jose Andrews DPM [facility] [place] [address] [place] [address] 01/02/2023 16:16:54 01/03/2023 12:06:28 Callosity on toe 346726973 L84 right 4th toeDebride d without incidentCo ntinue conservati ve management denies surgeryFol low-up 3 months Acquired r ight mallet toe 9138908361 0710259 M20.5X1 right 4th toeflexor tenotomy performed , healed [id number] Jose Andrews DPM [facility] [place] [place] [address] [place] [address] 01/30/2023 15:52:03 01/30/2023 16:37:32 Callosity on toe 795709217 L84 right 4th toeDebride d without incidentCo ntinue conservati ve management denies surgeryFol low-up 3 months Acquired r ight mallet toe 4747758617 9293474 M20.5X1 right 4th toeflexor tenotomy Healed [id number] TINY Enriquez[facility] [place] [address] [place] [address] 02/26/2023 11:15:01 02/26/2023 11:56:16 Moderate chronic obstructive pulmonary disease 455548631 J44.9 PFT 09/13/17 with FEV1:FVC ratio 62%.FEV1 [...] this fall Multiple n odules of lung 781622083 R91.8 PET-CT negative 215 mm to RULRepeat [...] walk test 07/2022 - WNL Chronic hoarseness 74814 29574 105 R49.0 Follows with ENT, also with lesion previously removed from vocal cord Obstructiv e sleep apnea syndrome 24138393 G47.33 Not corrected, uninterest ed in troublesho oting.I have offered home study optionHe is aware of the risks of uncorrecte d HUMPHREY, including Ex-smoker 4092221 Z87.89 1 [id number] Jose Andrews DPM [facility] Pod[facility] [place] [address] [address] 04/03/2023 15:04:05 04/04/2023 11:52:35 Acquired right mallet toe 5468082278 8672795 M20.5X1 right 4th toe- near rectusflex or tenotomy Healedcont inue supportive shoe gearfollow -up 3 months Hammer toe 431245608 M20 .40 right 2nd and 3rd toestoe spacerto reduce pressure on 4th toemonitor for wounds [place]ass[place] of toe 37357344 L84 right 4th toedebride d without incidentto e spacer dispensed to prevent 4th toe under riding of the 3rd [id number] Jose Andrews DPM [facility] [place] [address] [address] 07/03/2023 15:43:26 07/11/2023 16:00:35 Acquired right mallet toe 6882560565 4904923 M20.5X1 right 4th toe- resolvedfl exor tenotomy Healedcont inue supportive shoe gearfollow -up 3 months Diabetes mellitus 376517 09 E11.40 B35.1 Z74.1 M79.676 ChronicCon tinue PCP recommenda tion- glucose controlCon tinue supportive shoe gearFollow -up in 3 months for diabetic foot exam Onychomyco sis of toenails [id number] B35.1 Nails 1 through 10 were debrided with sharp mechanical debridemen t without incident. Nails were debrided and greater than 50% length and thickness where needed. [id number] Jose Andrews DPM [facility] [place] [address] [address] 10/02/2023 15:42:48 10/05/2023 08:39:39 Foot callus [id number] L84 Plantar right foot callusdebr ided without incidentRx Amlactinfo llow-up 3 months Pain in right foot 18742 [id number] 92573 M79.671 secondary to aboveconti nue supportive shoe gear [id number] Jose Andrews DPM [facility] [place] [address] [address] 01/01/2024 14:42:46 01/02/2024 14:47:14 Diabetes mellitus 32998757 E11.40 B35.1 Z74.1 M79.676 ChronicCon tinue PCP recommenda tion- glucose control Diabetic p eripheral neuropathy [id number] E11.40 continue supportive shoe gearCheck feet daily for wounds infectionF ollow-up in 3 months Onychomyco sis of toenails 099332586 B35.1 Patient was educated on treatment options of onychomyco sis. Patient's nails 1 through 10 were debrided without incident. Patient defers pharmacolo gical management due to possible side effects and will continue with conservati ve options. Return to clinic as needed every 3 months for this problem Unable to cut own toenails [id number] Z74.1 secondary to COPD [id number] [facility] [place] [address] [facility] [address] [place] [address] 04/01/2024 12:38:21 04/11/2024 15:17:16 Diabetes mellitus 21111347 E11.40 B35.1 Z74.1 M79.676 ChronicCon tinue PCP recommenda tion- glucose control Diabetic p eripheral neuropathy 844219745 E11.40 continue supportive shoe gearCheck feet daily for wounds infectionF ollow-up in 3 months Dystrophia unguium 83709 009 L60.3 nails debrided without incident 1 through 10 Unable to cut own toenails 065160106 Z74.1 secondary to COPD [id number] Jose Andrews DPM [facility] [address] [place] [address] 07/01/2024 12:34:29 07/01/2024 15:41:03 Peripheral arterial occlusive disease 538395293 I73.9 discuss testingobt ain non-invasi ve vascular testing to ensure adequate healing for possible bunion correction Dystrophia unguium 70186 009 L60.3 nails debrided without incident 1 through 10 Bunion 768680071 M21.61 9 obtain x-raysposs ible silver bunionecto my to reduce prominence , pending arterial ultrasound Fissure in skin 74895577 R23.4 left bunion medial aspectcons ervative offloading recommend wide/soft shoe gear Callus of heel 594821743 L84 bilateral heelsrecom mend deep heel cup orthotics and supportive shoe gear Diabetes mellitus 391216 09 E11.40 B35.1 Z74.1 M79.676 ChronicCon tinue PCP recommenda tion- glucose control Diabetic p eripheral neuropathy 132893766 E11.40 continue supportive shoe gearCheck feet daily for wounds infectionF ollow-up in 3 months Diabetic on insulin 1707 41042 Z79.4 [id number] Jose Andrews DPM [facility] [address] [place] [address] 07/16/2024 12:11:04 07/16/2024 12:42:35 Bunion 085425486 M21.619 obtain x-raysposs ible silver bunionecto my to reduce prominence , pending arterial ultrasound Fissure in skin 87873627 R23.4 left bunion medial aspectcons ervative offloading daily dressings with Silvadenei f becomes infected seek medical attention immediatel yrecommend wide/soft shoe gearfollow -up 1 week Peripheral arterial occlusive disease 080886717 I73.9 obtain vascular studies Skin eschar 527277347 R2 3.4 left dorsal sub 5th metatarsal head areanormal fashionkee p clean and dryfollow- up 1 week [id number] Jose Andrews DPM [facility] [address] [place] [address] 07/23/2024 13:59:49 08/04/2024 10:36:37 Bunion 755493737 M21.619 obtain x-raysposs ible silver bunionecto my to reduce prominence , pending arterial ultrasound Fissure in skin 09346560 R23.4 left bunion medial aspectcons ervative offloading daily dressings with Silvadenei f becomes infected seek medical attention immediatel yrecommend wide/soft shoe gearfollow -up 1 week Peripheral arterial occlusive disease 501856034 I73.9 obtain vascular studies-- Awaiting test not performed Skin eschar 003295940 R2 3.4 left dorsal sub 5th metatarsal head areanormal fashionkee p clean and dryfollow- up 1 week [id number] Jose Andrews DPM [facility] [place] [address] [place] [address] 07/28/2024 10:23:01 07/30/2024 16:08:32 Bunion 785562798 M21.619 obtain x-raysposs ible silver bunionecto my to reduce prominence , pending arterial ultrasound Fissure in skin 57863152 R23.4 left bunion medial aspectcons ervative offloading daily dressings with Silvadenei f becomes infected seek medical attention immediatel yrecommend wide/soft shoe gearfollow -up 1 week Peripheral arterial occlusive disease 091719097 I73.9 obtain vascular studies Tear of skin 035161712 T 14.8XXA leftplanta r sub 1st metatarsal headoffloa ded felt added to the sub 1st metatarsal headwound care to prevent infectionf ollow-up 1 week [id number] Jose Andrews [facility] [address] [place] [address] 08/20/2024 10:23:54 08/20/2024 14:02:42 Bunion 952377602 M21.619 obtain x-raysat this time will continue conservati ve options if the continuati on of wounds and high pressure recur then he will need surgery as per belowpossi ble silver bunionecto my to reduce prominence , pending arterial ultrasound Fissure in skin 83704596 R23.4 left bunion medial aspectHeal ed Tear of skin 820241530 T 14.8XXA leftplanta r sub 1st metatarsal headhealed Peripheral arterial occlusive disease 869036862 I73.9 obtain vascular studies [id number] Jose [place] D[facility] [place] [facility] [place] [address] [facility] [address] [place] [address] 12/18/2024 16:43:35 12/19/2024 13:34:53 Diabetes mellitus 60535710 E11.40 B35.1 Z74.1 M79.676 ChronicCon tinue PCP recommenda tion- glucose control Peripheral arterial occlusive disease 830793368 I73.9 obtain vascular studies Diabetic p eripheral neuropathy 470364653 E11.40 continue supportive shoe gearCheck feet daily for wounds infectionF ollow-up in 3 months Dystrophia unguium 34522 009 L60.3 nails debrided without incident 1 through 10 [id number] Jose Andrews DPM [facility] [place] [address] [facility] [address] [place] [address] 03/19/2025 16:35:57 03/26/2025 16:24:47 Diabetes mellitus 04683050 E11.40 B35.1 Z74.1 M79.676 ChronicCon tinue PCP recommenda tion- glucose controlcon tinue diabetic shoe gearcheck feet daily for wounds infection at present seek medical attention immediatel y Bunion 262933767 M21.61 9 continue conservati ve options if the continuati on of wounds and high pressure recur then he will need surgery as per belowpossi ble silver bunionecto my to reduce prominence , pending arterial ultrasound Diabetic p eripheral neuropathy 740964745 E11.40 continue supportive shoe gearas above Dystrophia unguium 17787 009 L60.3 nails debrided without incident 1 through 10 Health Concerns Section Related Observation LastModified by Organization Detai ls LastModified Time None Recorded Concern Status LastModified by Organization Details LastModified Time None Recorded Advance Directives Directive None Recorded Payers Insurance Date Sequence Insurance Name Policy Number Policy Lester Covered Member ID Lester Member ID Guarantor Name 03/26/2025 1 [facility] (MEDICAID HMO) [id number] Jase Ross [id number] Jase Ross Notes Date Note Type Note Provider Name and Address Organization Details Recorded Time 07/23/2024 text/html . Patient is a 78-year-old [...] Andrews DPM [address], [place], [address], [employer] 08/04/2024 09:22:22 07/28/2024 text/html . Patient is [...] Andrews DPM [address], [place], [address], [employer] 07/28/2024 11:19:15 08/20/2024 text/html ROS as noted in the HPI . Patient is a 78-year-old male who returns the office for follow-up on a wound to the medial great toe which is completely healed he denies any new wounds he denies any pain to the area. Patient denies any other complaints. Jose Andrews DPM [address], [place], [address], [employer] 08/20/2024 12:07:18 12/18/2024 text/html . Patient is a 79-year-old male diabetic who returns the office for diabetic foot care. Patient denies any new complaints he denies any intermittent claudication walking or rest pain. Patient denies any wounds to the feet or pain when weight-bearing. Patient would like his nails cut as he can not cut them due to thickness. Jose Andrews DPM [address], [place], [address], Repair Report 12/18/2024 17:23:51 03/19/2025 text/html Patient is a 79-year-old male [...] to the toenails. Jose Andrews DPM [address] [facility] [address], [place], [address], [facility] [employer] 03/23/2025 09:53:07
[2025-04-10] MEDS: LACTATED RINGERS 1,000 ML 30 ML IV CONT (06:25)
--- NOTE | 2025-04-10 07:15 | WPDANESEPPF ---
Anes - Initial Pre Proc Eval Procedure: Operation Date: 04/10/25 07:30 Proposed Procedures p Micro Direct Laryngoscopy with Biopsy - Vik Blanco MD Date/Time: 04/10/25 07:15 Surgeon: Vik Blanco MD Pre Op Diagnosis: other diseases of vocal cord, dysphonia Patient Data Age: 79 Gender: M Height: 1.78 m Weight: 88.2 kg Last Vital Signs Temp 97.2 F L 04/10/25 06:04 Pulse 66 04/10/25 06:04 Resp 16 04/10/25 06:04 BP 136/66 04/10/25 06:04 Pulse Ox 99 04/10/25 06:04 Allergies Allergy/AdvReac Type Severity Reaction Status Date / Time codeine Allergy Severe itchy Verified 03/31/25 13:10 Home Medications ?Medication ?Instructions ?Recorded ?Confirmed ?Type budesonide-formoterol HFA 80 2 puff inhalation Q12H 07/04/21 03/31/25 History mcg-4.5 mcg/actuation aerosol inhaler (Symbicort) carvedilol 12.5 mg tablet 12.5 mg PO Q12H 07/04/21 03/31/25 History fluticasone 250 mcg-salmeterol 50 1 inh inhalation BID 07/04/21 03/31/25 History mcg/dose blistr powdr for inhalation (Advair Diskus) glipizide 5 mg tablet 2.5 mg PO DAILY 07/04/21 03/31/25 History hydrocodone 5 mg-acetaminophen 325 1 tablet PO Q8H PRN pain 07/04/21 03/31/25 History mg tablet potassium chloride 10 mEq 10 meq PO DAILY 07/04/21 03/31/25 History capsule,extended release rosuvastatin 40 mg tablet 40 mg PO DAILY 07/04/21 03/31/25 History insulin glargine 100 unit/mL (3 21 unit subcut QPM 11/23/23 03/31/25 History mL) subcutaneous pen (Lantus Solostar U-100 Insulin) ipratropium bromide 21 mcg (0.03 2 spray intranasal .qd-tid #30 mL 11/23/23 03/31/25 Rx %) nasal spray nystatin 100,000 unit/mL oral 4 ml PO QID 14 days #224 mL 12/07/23 03/31/25 Rx suspension omeprazole 40 mg capsule,delayed See Rx Instructions .Route 12/12/23 03/31/25 Rx release .COMPLEX #30 caps dulaglutide 3 mg/0.5 mL 3 mg subcut WEEKLY 06/30/24 03/31/25 History subcutaneous pen injector (Trulicity) omeprazole 40 mg capsule,delayed 40 mg PO DAILY Laryngopharyngeal 06/30/24 03/31/25 Rx release reflux #90 caps omeprazole 40 mg capsule,delayed 40 mg PO DAILY laryngopharyngeal 10/27/24 03/31/25 Rx release reflux #90 caps Laboratory Tests 04/10/25 06:11 POC Capillary Glucose 137 H mg/dl (65-105) Patient hx anesthesia problems: none Family hx anesthesia problems: none Results Review: All pre-operative results and documents have been reviewed as part of the pre-operative evaluation. [facility] Family History Family History Mother Cerebrovascular accident Father Family history of malignant neoplasm Sibling Family history of diabetes mellitus in first degree relative Family history of coronary artery disease Social History Social History Smoking packs per day: 1 Smoking cigarettes per day: 20.0 Years smoked: 55 Smoking pack-years: 55.00 Smoking status: Former smoker Tobacco type: cigarettes Smoking end date: 04/16/97 Alcohol intake: former Alcohol use details: not in 30 yrs Substance use: never Lack of Transportation: No Lack of Food: Never True Current Housing: I Have Housing Concerned About Future Housing: No Difficulty Paying Gas/Electric Bills: No Difficulty Paying for Meds: No Currently Unemployed: No Difficulty w/ Childcare or Family Care: No Living arrangements: with family Additional living arrangements comments: Brother Spiritual care concerns: No Anes - Eval Final PreProcedure Day of Procedure 04/10/25 07:15 Patient weight: overweight Lungs: normal air movement Airway: Mallampati scale class II and special considerations (Upper and lower dentures noted. ) Neurological: alert and oriented Last oral intake: >/= 8 hours ASA classification: III Emergent: no Anesthetic plan: proceed Anesthesia type and monitoring: general ETT and standard monitoring Results Review: All pre-operative results and documents have been reviewed as part of the pre-operative evaluation. Hyperlipidemia, DM fsb 137, long time ex smoker quit 1999, pt w known hx of hoarseness. Informed Consent: The patient's anesthetic plan and its attendant risks and benefits were discussed with the patient/family/POA. Questions were solicited and answers provided to the satisfaction of the patient/family/POA.
--- NOTE | 2025-04-10 07:21 | PM.HPGS ---
History of Present Illness History of Present Illness Consent: Risks, benefits, and alternatives have been discussed and questions answered. Patient agrees to proceed with procedure. Chief complaint: other diseases of vocal cord, dysphonia Narrative: Jase Ross is a 79 year old male w/ Hx of chronic, worsening dysphonia. In the clinic, on flexible laryngoscopy, he was found to have a possible left vocal fold lesion. Biopsy of this lesion was recommended. He presents for this today. Review of Systems Review of Systems: All systems reviewed & are unremarkable except as noted in HPI and below PMFSH Family History Family History Mother Cerebrovascular accident Father Family history of malignant neoplasm Sibling Family history of diabetes mellitus in first degree relative Family history of coronary artery disease Social History Social History Smoking packs per day: 1 Smoking cigarettes per day: 20.0 Years smoked: 55 Smoking pack-years: 55.00 Smoking status: Former smoker Tobacco type: cigarettes Smoking end date: 04/16/97 Alcohol intake: former Alcohol use details: not in 30 yrs Substance use: never Lack of Transportation: No Lack of Food: Never True Current Housing: I Have Housing Concerned About Future Housing: No Difficulty Paying Gas/Electric Bills: No Difficulty Paying for Meds: No Currently Unemployed: No Difficulty w/ Childcare or Family Care: No Living arrangements: with family Additional living arrangements comments: Brother Spiritual care concerns: No Meds Home Medications and Allergies Home Medications ?Medication ?Instructions ?Recorded ?Confirmed ?Type budesonide-formoterol HFA 80 2 puff inhalation Q12H 07/04/21 03/31/25 History mcg-4.5 mcg/actuation aerosol inhaler (Symbicort) carvedilol 12.5 mg tablet 12.5 mg PO Q12H 07/04/21 03/31/25 History fluticasone 250 mcg-salmeterol 50 1 inh inhalation BID 07/04/21 03/31/25 History mcg/dose blistr powdr for inhalation (Advair Diskus) glipizide 5 mg tablet 2.5 mg PO DAILY 07/04/21 03/31/25 History hydrocodone 5 mg-acetaminophen 325 1 tablet PO Q8H PRN pain 07/04/21 03/31/25 History mg tablet potassium chloride 10 mEq 10 meq PO DAILY 07/04/21 03/31/25 History capsule,extended release rosuvastatin 40 mg tablet 40 mg PO DAILY 07/04/21 03/31/25 History insulin glargine 100 unit/mL (3 21 unit subcut QPM 11/23/23 03/31/25 History mL) subcutaneous pen (Lantus Solostar U-100 Insulin) ipratropium bromide 21 mcg (0.03 2 spray intranasal .qd-tid #30 mL 11/23/23 03/31/25 Rx %) nasal spray nystatin 100,000 unit/mL oral 4 ml PO QID 14 days #224 mL 12/07/23 03/31/25 Rx suspension omeprazole 40 mg capsule,delayed See Rx Instructions .Route 12/12/23 03/31/25 Rx release .COMPLEX #30 caps dulaglutide 3 mg/0.5 mL 3 mg subcut WEEKLY 06/30/24 03/31/25 History subcutaneous pen injector (Trulicity) omeprazole 40 mg capsule,delayed 40 mg PO DAILY Laryngopharyngeal 06/30/24 03/31/25 Rx release reflux #90 caps omeprazole 40 mg capsule,delayed 40 mg PO DAILY laryngopharyngeal 10/27/24 03/31/25 Rx release reflux #90 caps Allergies Allergy/AdvReac Type Severity Reaction Status Date / Time codeine Allergy Severe itchy Verified 03/31/25 13:10 Vital Signs Vital Signs - 24 hr 04/10/25 06:04 Temperature 36.2 C L Pulse Rate 66 Respiratory Rate 16 Blood Pressure 136/66 Pulse Oximetry 99 Exam Narrative: General: Well developed, well nourished. No apparent distress. Voice raspy. Head: Normocephalic, atraumatic. Eyes: Sclerae and conjunctivae clear. Pupils equal and round. Full extraocular motility. Ears: Normal pinnae. Nose: Nasal dorsum is straight. No drainage or crusting at nares. Normal mucosa. Oral Cavity / Oropharynx: Moist mucous membranes. No suspicious lesions. Posterior pharynx is clear without drainage. Neck: Supple, nontender. No palpable lymphadenopathy, neck mass, or thyromegaly. Lungs: Respirations unlabored. Cardiovascular: Extremities warm and well perfused. Neurologic: Alert, oriented. Moves all extremities. Facial sensation intact to light touch. Face symmetric. Palate elevates symmetrically. Tongue midline. Assessment and Plan Assessment and plan (1) Lesion of vocal cord: Code(s): J38.3 - Other diseases of vocal cords Status: Acute Plan Will proceed to OR for direct laryngoscopy and biopsy of vocal fold lesion. The risks, benefits, and alternatives to surgery were discussed. The risks of pain, bleeding, infection, scarring, no improvement in symptoms, worsening symptoms, recurrent symptoms, nondiagnostic biopsy, false positive or false negative biopsy, airway compromise, injury to the lips or teeth or gums, tongue swelling and bruising, tongue numbness, altered taste, and injury to the neck were all reviewed. The patient expressed understanding and wishes to proceed with surgery.
--- NOTE | 2025-04-10 07:27 | WPDHPUPDATE1 ---
History and Physical Update Update Date/Time: 04/10/25 07:27 History and Physical has been reviewed, including an updated exam of the patient. There are NO changes in the patient's condition. Risks, benefits, and alternatives have been discussed and questions answered. Patient agrees to proceed with procedure.
--- NOTE | 2025-04-10 08:04 | S_PTH ---
PATIENT: Jase Ross LOC: [facility] U#:[id number] AGE/SX: 79/M ROOM: RE04/10/[address]: Vik Blanco MD : 1945 BED: DIS: 04/10/2025 SPEC #: [id number] RECD: 04/10/25 09:53 STATUS: DION RENaeem #: [id number] MIQUEL: 04/10/25 08:[address]: Vik Blanco DEPT: [facility] Surgical RECD BY: Trudi Hall ENTERED: 04/10/25 09:54 SP TYPE: Surgical OTHR DR: Bhavesh Marroquin, MMaxwell Tissues: A - Vocal Cord Biopsy Procedures: Hematoxylin and Eosin Stain Gross and Microscopic Level 4
--- NOTE | 2025-04-10 08:32 | SUR.OPER ---
Aerobic, anaerobic and gram stain bilateral true vocal cords and Tissue culture of left true vocal cord sent with CHANDU Germain and received in pathology by
--- NOTE | 2025-04-10 08:36 | W.PM.PROC2 ---
Procedure Note - Detailed Date of Procedure 04/10/25 Pre-op Diagnosis Dysphonia Post-op Diagnosis Same Procedure Performed Direct microlaryngoscopy with biopsy Surgeon Vik Blanco MD Anesthesia General Findings Bilateral true vocal folds with white exudate and edema Description of Procedure Patient was identified in the preoperative area and informed written consent was obtained. The patient was transported to the operating room and placed supine on the operating room table. The anesthesiology service induced general anesthesia and intubated the patient. The patient was then positioned and draped. A surgical time-out was conducted confirming the patient's identity and the procedure to be performed. A moist ray-georgina was placed to protect the upper alveolus. A Kleinsasser laryngoscope was inserted. The oropharynx, hypopharynx, and larynx were all inspected. The scope was advanced into the laryngeal introitus. The patient was placed into suspension. Examination of the true vocal folds showed bilateral true vocal folds with white exudate, edema, and erythema. A culture was obtained with a swab. Additional tissue was obtained using a cup forceps from the bilateral vocal folds for tissue culture. A biopsy of the left true vocal fold was sent for permanent pathology. There was no bleeding. The patient was then taken out of suspension. The laryngoscope and ray-georgina were removed. There were no injuries to the lips or teeth or gums. The patient was returned to the anesthesiology service. He was awoken, extubated, and transferred to the postoperative recovery area in stable condition. There were no immediate complications.
[2025-04-10] MEDS: fentaNYL CITRATE INJ (*CRX) 100 MCG/2 ML VIAL 25 MCG IV PUSH ×4 (08:48→09:06)
[2025-04-10] MEDS: oxyCODONE HCL (*CRX) 5 MG TAB IR PO (09:33)
== END 2025-04-10 10:02 | disposition home or self-care (01) ==
PROVIDERS: PCP Internal Medicine Infectious Disease; Visit Provider Otolaryngology
PROC: 0CJS8ZZ Inspection of Larynx, Via Natural or Artificial Opening Endoscopic (ICD-10-PCS; CPT 31575; principal; 2025-04-10 07:30)
DX: J38.3 Other diseases of vocal cords (principal); Z87.891 Personal history of nicotine dependence; Z79.4 Long term (current) use of insulin
CPT/HCPCS: 31536; 82948; 87070; 87075; 87205; 88305; A9270; J0330; J1100; J2003; J2405; J2704; J3010; J7120